=== PATIENT | male | born 1950 | race Caucasian/White ===

== ENCOUNTER 2017-10-23 06:52 | Day surgery (SDC) | payer MEDICARE, OTHER, SELFPAY ==
--- NOTE | 2017-10-23 | PATH_ITS ---
[facility] Accession Number: [id number] . 01 Material submitted: . PART A: GASTRIC PART B: COLON POLYP AT 110CM . 02 Diagnosis: A. Gastric Biopsies: Mild chronic gastritis involving antral mucosa with prominent mucosal erosion and focal atrophy with associated focal intestinal metaplasia. Immunohistochemistry for Helicobacter pending to be reported by addendum. Negative for dysplasia and malignancy. . B. Biopsy Colon Polyp at 110 cm: Tubular adenoma involving two biopsy fragments with associated superficial ulceration. Multiple fragments of vegetable matter. Negative for evidence of malignancy. MRV/10/26/2017 . 02 Electronically signed: . Carlos Hall MD, Pathologist NPI- [id number] . 01 Gross description: . Received are two formalin-filled containers, both labeled with the patient's name: . A. In a container labeled gastric, are multiple less than 0.1 cm to 0.2 cm portions of tissue, which are filtered, wrapped, and entirely submitted in cassette A. B. In a container labeled colon polyp at 110 cm, are multiple fragments of tissue and/or debris which range in size from less than 0.1 cm to 0.3 x 0.3 x 0.2 cm. All fragments are totally submitted in cassette B. ([id number]) /FRR . 02 Pathologist provided ICD-10: K29.70 . 02 CPT . 242409, 336767, S27920 Performed at: 01 [facility] [address] [id number] MD Yeison Bhandari MD Phone: [phone] Performed at: 02 [facility] [id number] [place] [id number] MD Isidro Blanco MD Phone: [phone]
[2017-10-23 07:20] VITALS: BP 150/81; PULSE 71; RESP 22; TEMP 36.7
[2017-10-23] MEDS: SODIUM CHLORIDE 0.9% 1,000 ML 200 ML IV (07:44)
--- NOTE | 2017-10-23 07:52 | PM.PREOP ---
Pre-operative Note Interval Note Pre-op Check: History & Physical Reviewed by Physician and Exam Performed H&P completed within 30 days and has changed as indicated here:: no change ASA Class (for procedural sedation): III
--- NOTE | 2017-10-23 08:01 | SUR.OPER ---
to endo from opd via cart respirations unlabored iv patent positioned per self for procedure
--- NOTE | 2017-10-23 09:07 | PM.OP.ENDO ---
Operative Date/Time/Diagnoses - Date of procedure: 10/23/17 Time of procedure: 09:07 Pre-op diagnosis: Anemia of uncertain cause. Post-op diagnosis: same (Multiple gastric ulcers. One inflammatory appearing polyp in the proximal transverse colon. left-sided diverticulosis.) Procedure & Clinicians Study performed: EGD with cold biopsy. Colonoscopy with hot snare polypectomy. Same procedure as scheduled: Yes Indications: Anemia Surgeon: Denzel Marquez Procedure Notes SCOAP/Timeout: Performed Procedure in detail: The patient had topical anesthetic applied to oropharynx. She was placed in left lateral decubitus position and underwent IV sedation directed by the surgeon consisting of fentanyl and Versed. A bite block was inserted and the scope was advanced through it into the esophagus. The esophagus was unremarkable. GE junction was noted at 41 cm. The stomach insufflated well. There were multiple ulcer lesions seen in the body, antrum and at the proximal stomach. The pyloric channel was [patent]. The duodenum was remarkable for inflammation in the bulb. There were no ulcers. The duodenum was otherwise normal to the 3rd part. The scope was brought back into the stomach and retroflexed. The proximal stomach[contain numerous linear erosions with linear ulcerations. Multiple biopsies were taken in the stomach which included areas of ulcer]. The scope was straightened and brought out through the esophagus again. No lesions were seen. The scope was removed and the patient tolerated the procedure well. The patient was placed in the left lateral decubitus position and underwent IV sedation directed by the surgeon consisting of fentanyl and Versed. Digital exam was[remarkable for a flat area of the prostate. (patient is post radiation treatment of prostate cancer)]. The scope was inserted and advanced through the rectum into the sigmoid, descending, transverse, and ascending colon. Patient had left-sided diverticulosis. No other lesions were seen.. The cecum was reached identified by the ileocecal valve and the appendiceal opening. The ileocecal valve was successfully cannulated. The terminal ileum was normal in appearance. The appendix was noted to fill with fluid an empty periodically. The scope was gradually brought out. Polyps were found at 110 cm in the proximal transverse colon. It appeared to be an inflammatory lesion rather than a neoplastic 1. It was snared and then the bleeding base cauterized. The scope ultimately was retroflexed in the rectum. The appearance was normal in appearance. The scope was removed and the patient tolerated the procedure well Scope withdrawal time: 13 min Sedation minutes: 42 Findings: diverticulosis, gastric ulcer (Multiple including linear ulcerations) and polyp (Proximal transverse colon. Appeared to be inflammatory.) Specimen(s): other (Gastric biopsies and polypectomy specimens) Complications: none Recommendations: Colonscopy in 5 years, Start medication(s) (Proton pump inhibitor(patient presently on H2 [place])) and Other recommendation (EGD in 12 weeks to confirm healing of multiple ulcers.) Plan for aftercare: Follow-up in the office in 1 month. Follow up: months (One) Disposition: PACU
[2017-10-23 09:12] VITALS: BP 136/68; PULSE 54; RESP 16; TEMP 36.4; O2SAT 95
[2017-10-23] MEDS: fentaNYL 250 MCG/5 ML INJ 275 MCG IV (09:13)
[2017-10-23] MEDS: MIDAZOLAM 5 MG/5 ML VIAL IV (09:13)
[2017-10-23] MEDS: TETRACAINE/BENZOCAINE/BUTAMBEN (CETACAINE) BOTTLE 1 SPRAY TOP (09:14)
[2017-10-23 09:18] VITALS: BP 125/66; PULSE 56; RESP 17; TEMP 37; O2SAT 97
[2017-10-23 09:25] VITALS: BP 128/65; PULSE 61; RESP 15; TEMP 36.3; O2SAT 98
== END 2017-10-23 09:43 | disposition home or self-care (01) ==
PROVIDERS: PCP Internal Medicine; Visit Provider Specialist
PROC: 0DJ08ZZ Inspection of Upper Intestinal Tract, Via Natural or Artificial Opening Endoscopic (ICD-10-PCS; CPT 43235; principal; 2017-10-23 07:45)
PROC: 0DJD8ZZ Inspection of Lower Intestinal Tract, Via Natural or Artificial Opening Endoscopic (ICD-10-PCS; CPT 45378; 2017-10-23 07:45)
DX: D64.9 Anemia, unspecified (principal); K25.9 Gastric ulcer, unspecified as acute or chronic, without hemorrhage or perforation; K57.30 Diverticulosis of large intestine without perforation or abscess without bleeding; I25.10 Atherosclerotic heart disease of native coronary artery without angina pectoris; E11.9 Type 2 diabetes mellitus without complications; I10 Essential (primary) hypertension; Z87.891 Personal history of nicotine dependence; Z85.46 Personal history of malignant neoplasm of prostate; Z79.4 Long term (current) use of insulin; D12.3 Benign neoplasm of transverse colon; K29.70 Gastritis, unspecified, without bleeding
CPT/HCPCS: 45385; 43239; 99152; 99153; J0171; J2250; J3010

== ENCOUNTER → 2017-12-07 09:39 | Outpatient (CLI) | payer MEDICARE, OTHER, SELFPAY ==
[2017-12-07 11:06] LABS: Add Manual Diff / Slide Review NO; Basophils Percent Auto 0.7 % (0-2); Eosinophils Percent Auto 3.1 % (2-4); Hematocrit 35.2 % (41-53); Hemoglobin 11.7 g/dL (13.5-17.5); Lymphocytes Percent Auto 19.6 % (25-40); Mean Corpuscular HGB Conc 33.3 % (30-36); Mean Corpuscular Hemoglobin 30.5 PG (26-34); Mean Corpuscular Volume 91.6 fL (80-100); Monocytes Percent Auto 9.6 % (3-14); Neutrophils Absolute Auto 3700 /uL (3000-5900); Platelet Count 107 X10^3/uL (150-400); Red Blood Cell Count 3.85 X10^6/uL (4.5-5.9); Red Cell Distribution Width 16.9 % (11.6-14.8); White Blood Cell Count 5.6 X10^3/uL (4.5-11.0)
[2017-12-07 11:16] LABS: Hemoglobin A1C% w Est Avg Glu 6.9 % (4.0-6.0)
[2017-12-07 11:17] LABS: Alanine Aminotransferase 35 IU/L (21-72); Albumin 3.5 g/dL (3.5-5.0); Albumin Globulin Ratio 1.5 (1.0-2.8); Alkaline Phosphatase 66 U/L (38-126); Aspartate Aminotransferase 31 IU/L (17-59); BUN Creatinine Ratio 23.3 (6-22); Bilirubin Total 0.8 mg/dL (0.2-1.3); Blood Urea Nitrogen 21 mg/dL (9-20); Calcium 9.2 mg/dL (8.4-10.2); Carbon Dioxide 30 mmol/L (22-32); Chloride 100 mmol/L (98-107); Estimated Glomerular Filt Rate > 60.0 mL/min (>60); Globulin 2.4 g/dL (1.7-4.1); Glucose 114 mg/dL (80-110); HEMOLYSIS 23 (0-50); Potassium 4.9 mmol/L (3.4-5.1); Sodium 138 mmol/L (137-145); Total Protein 5.9 g/dL (6.3-8.2)
[2017-12-07 11:50] LABS: Thyroid Stimulating Hormone 2.15 uIU/mL (0.47-4.68)
== END ==
PROVIDERS: PCP Internal Medicine; Visit Provider Internal Medicine
DX: I25.10 Atherosclerotic heart disease of native coronary artery without angina pectoris (principal)
CPT/HCPCS: 36415; 80053; 83036; 84443; 85025; G0103

== ENCOUNTER → 2017-12-22 08:46 | Outpatient (CLI) | payer MEDICARE, OTHER, SELFPAY ==
--- NOTE | 2017-12-22 08:49 | DI.US.S_ITS ---
PROCEDURE: US ABDOMEN COMPLETE INDICATIONS: ALCOHOLISM TECHNIQUE: Real-time scanning was performed of the abdominal and retroperitoneal organs, with image documentation. COMPARISON: [facility], US, ABDOMEN COMPLETE, 01/05/2015, 0:43. [facility], US, ABDOMEN COMPLETE, 05/11/2013, 1:15. FINDINGS: Liver: Liver is normal in size and homogeneous in echotexture. Gallbladder: Surgically absent. Biliary ducts: Intrahepatic bile ducts are non-dilated. Extrahepatic bile duct caliber measures 10.0 mm. Normal is 6-7 mm or less in diameter, or 10 mm or less post-cholecystectomy. Pancreas: Visualized portions of the pancreas are sonographically normal. Spleen: Spleen is normal in size and homogeneous in echotexture. Kidneys: Kidneys are normal in size and echotexture. Right kidney measures 12.3 cm long; left kidney measures 13.7 cm long. No hydronephrosis or nephrolithiasis. No solid masses. Aorta: Visualized aorta is normal in caliber at less than 3 cm. Iliacs: Proximal common iliac arteries are normal in caliber at less than 2.5 cm. IVC: Intrahepatic inferior vena cava is patent. Miscellaneous: No free abdominal fluid. IMPRESSION: Prior cholecystectomy. Normal spleen size, normal hepatic echotexture and size. Varices or ascites are not seen. Dictated by: Charles Sumner M.D. on 12/22/2017 at 10:44 Approved by: Charles Sumner M.D. on 12/22/2017 at 10:45
== END ==
PROVIDERS: PCP Internal Medicine; Visit Provider Internal Medicine Hematology & Oncology
DX: D64.9 Anemia, unspecified (principal); F10.10 Alcohol abuse, uncomplicated; D69.6 Thrombocytopenia, unspecified; Z90.49 Acquired absence of other specified parts of digestive tract
CPT/HCPCS: 76700

== ENCOUNTER 2018-01-13 08:30 | Outpatient (RCR) | payer MEDICARE, OTHER, SELFPAY | END 2018-01-18 14:06 | LOC: CAR 08:30 | PROVIDERS: PCP Internal Medicine; Visit Provider Internal Medicine | DX: Z95.1 Presence of aortocoronary bypass graft (principal) | CPT/HCPCS: 93798 ==

== ENCOUNTER → 2018-01-13 13:32 | Outpatient (CLI) | payer MEDICARE, OTHER, SELFPAY ==
[2018-01-13 14:07] LABS: Add Manual Diff / Slide Review NO; Basophils Percent Auto 0.4 % (0-2); Eosinophils Percent Auto 3.4 % (2-4); Hematocrit 39.5 % (41-53); Hemoglobin 13.4 g/dL (13.5-17.5); Lymphocytes Percent Auto 22.1 % (25-40); Mean Corpuscular Hemoglobin 31.3 PG (26-34); Mean Corpuscular Volume 92.1 fL (80-100); Monocytes Percent Auto 6.6 % (3-14); Neutrophils Absolute Auto 5200 /uL (3000-5900); Neutrophils Percent Auto 67.5 % (50-75); Platelet Count 110 X10^3/uL (150-400); Red Blood Cell Count 4.29 X10^6/uL (4.5-5.9); Red Cell Distribution Width 15.3 % (11.6-14.8); White Blood Cell Count 7.7 X10^3/uL (4.5-11.0)
[2018-01-13 14:24] LABS: Alanine Aminotransferase 43 IU/L (21-72); Albumin 4.1 g/dL (3.5-5.0); Albumin Globulin Ratio 1.7 (1.0-2.8); Alkaline Phosphatase 56 U/L (38-126); Aspartate Aminotransferase 40 IU/L (17-59); BUN Creatinine Ratio 24.5 (6-22); Blood Urea Nitrogen 27 mg/dL (9-20); Calcium 9.8 mg/dL (8.4-10.2); Carbon Dioxide 33 mmol/L (22-32); Chloride 99 mmol/L (98-107); Estimated Glomerular Filt Rate > 60.0 mL/min (>60); Globulin 2.4 g/dL (1.7-4.1); Glucose 169 mg/dL (80-110); HEMOLYSIS 22 (0-50); Lactate Dehydrogenase 680 U/L (313-618); Potassium 4.6 mmol/L (3.4-5.1); Sodium 141 mmol/L (137-145); Total Protein 6.5 g/dL (6.3-8.2)
== END ==
PROVIDERS: PCP Internal Medicine; Visit Provider Internal Medicine Hematology & Oncology
DX: D64.9 Anemia, unspecified (principal); D69.6 Thrombocytopenia, unspecified
CPT/HCPCS: 36415; 80053; 83615; 85025

== ENCOUNTER 2018-01-14 15:30 | Oncology outpatient (ONC) | payer MEDICARE, OTHER, SELFPAY ==
--- NOTE | 2017-12-14 13:45 | ONC.CONS ---
History of Present Illness - Data of Consult Consult date: 12/14/17 Primary Care Provider: Reji Malave MD - Consult Narrative Reason for consult: Anemia and thrombocytopenia Narrative: Grant Lowery is a 67 year old male . He has an extensive long list of medical comorbidities most notable for diabetes, coronary artery disease status post CABG, sleep apnea using CPAP, gout, hyperlipidemia, hypothyroidism, hypertension, prostate cancer status post radiotherapy and acid reflux problems. Patient admitted to drinking alcohol for as long as he can remember. He said he is drinking vodka probably 6-8 cans per day. Patient was referred to Hematology/Oncology for evaluation of newly developed anemia and thrombocytopenia. He said he was not aware of any anemia or thrombocytopenia until after the CABG surgery last March 2017. Clinically he denies any black stool, denies any bright red blood per rectum. Available medical records showed that on February 01 2016 the white cell count was 6.7 hemoglobin 14.0 hematocrit 40.6% platelets 123. Repeat test on 10/14/2017 reviewed blood cell 6.7, hemoglobin 11.8, hematocrit 35.6%, MCV 87.2, platelets 138. Patient therefore underwent GI workup including colonoscopy and upper endoscopy. Iron studies was also normal. No apparent etiology for anemia was identified. And on December 07, 2017, repeat test showed that the white cell count was 5.6, hemoglobin level 11.7 hematocrit 35.2, MCV 91.6 and platelets 107. And iron studies were normal according to the medical records. Patient therefore was referred to here for further evaluation. Patient reported that he is slightly more tired than before. He denies any shortness of breath or chest pain. He denies any abdominal pain or fullness. The denies bright red blood per rectum or dark stool. CC: Tracey Gaines MD Home Medications and Allergies Home Medications Medication Instructions Recorded Confirmed Type Atorvastatin Calcium (Lipitor) 80 mg PO Q DAY #0 08/31/09 10/21/17 History LISINOPRIL (Zestril / Prinivil) 20 mg PO BID #0 08/31/09 10/21/17 History Metformin Hydrochloride 1,000 mg PO BID #0 08/31/09 10/21/17 History (Glucophage) carvedilol [Coreg] 25 mg PO BID #0 10/19/11 10/21/17 History aspirin 81 mg tablet,delayed 162 mg PO DAILY 10/21/17 10/21/17 History release cholecalciferol (vitamin D3) 1,000 1,000 unit PO DAILY 10/21/17 10/21/17 History unit capsule ezetimibe 10 mg-simvastatin 10 mg 1 tab PO DAILY 10/21/17 10/21/17 History tablet furosemide 20 mg tablet 20 mg PO DAILY 10/21/17 10/21/17 History insulin aspart U-100 100 unit/mL 10 unit SUBCUT ONCE ml 10/21/17 10/21/17 History subcutaneous pen insulin glargine (U-100) 100 35 unit SUBCUT BID ml 10/21/17 10/21/17 History unit/mL (3 mL) subcutaneous pen levothyroxine 112 mcg capsule 112 mcg PO DAILY 10/21/17 10/21/17 History pioglitazone 30 mg tablet 30 mg PO DAILY 10/21/17 10/21/17 History potassium chloride ER 10 mEq 10 meq PO DAILY 10/21/17 10/21/17 History capsule,extended release esomeprazole magnesium 20 mg PO DAILY #60 cap 10/23/17 Rx Allergies Allergy/AdvReac Type Severity Reaction Status Date / Time acetaminophen Allergy Severe ANAPHYLAXIS Verified 10/21/17 09:26 codeine Allergy Severe ANAPHYLAXIS Verified 10/21/17 09:26 silicone Allergy Verified 10/21/17 10:31 Medical History - Medical, Surgical, Family History Medical History: Medical History (Last Updated 12/14/17 @ 14:01 by Tracey Gaines MD) Alcohol abuse (Chronic) Gout (Chronic) Sleep apnea (Chronic) Hyperlipidemia (Chronic) Coronary artery disease (Chronic) Diabetes (Chronic) Prostate cancer (Chronic) Hypertension (Chronic) Blindness of left eye Surgical History: Surgical History (Last Updated 12/14/17 @ 14:01 by Tracey Gaines MD) History of coronary artery bypass graft x 2 History of laparoscopic cholecystectomy Hx of heart artery stent Hx of umbilical hernia repair Status post rotator cuff surgery Family History: Family History (Last Reviewed 10/21/17 @ 13:01 by Denzel Marquez MD) Father Hypertension Heart disease Mother Stroke Cancer - Social History Smoking Status: Former smoker (quit ) Alcohol Intake: current (Vodka 6-8 oz per day for decades.) Alcohol Intake Frequency: 0-2 drinks per day Current Occupational Status: employed Exam Vital signs: Temperature 98.5?, heart rate 49, respiratory rate 15, blood pressure 184/63, oxygenation 99%, weight 282.4 lb, height 178.5 cm. - Constitutional positive no acute distress, positive obese, positive cooperative - Routine HEENT Exam Head: Present: normocephalic, atraumatic Eye: Present: EOMI, PERRL, normal accommodation. Absent: conjunctival icterus ENT: Present: mucous membranes moist - Routine Neck Exam Present: supple, full ROM, trachea midline. Absent: JVD, carotid bruit, lymphadenopathy, thyromegaly - Routine Chest/Breast/Axilla Exam Axillae: Absent: lymphadenopathy, mass - Routine Respiratory Exam Present: Clear to auscultation bilaterally. Absent: wheezes - Routine Cardiovascular Exam Present: RRR, S1, S2. Absent: murmur, gallop, rubs - Routine Abdominal Exam Present: soft, normoactive bowel sounds. Absent: tenderness, distended, mass Palpation/Percussion: Absent: hepatomegaly, splenomegaly - Routine Extremities Exam Present: edema (1+ bilateral lower extremities). Absent: cyanosis, clubbing - Routine Back/Spine Exam Back/Spine: Present: full ROM. Absent: CVA tenderness - Routine Skin Exam Present: intact. Absent: cyanosis, erythema, petechiae - Routine Neurological Exam Present: alert, oriented X3, CN II-XII intact, normal reflexes. Absent: sensory deficit, motor deficit - Routine Psychiatric Exam Present: normal affect, normal thought process, cooperative, good insight, good judgment Results - Imaging Additional studies: Procedures Administration of iislnhmzet-xwxgmct-hudqkgyvp, combined (10/19/11) CAUTERY TO STOP EPISTAX (08/31/09) Injection or infusion of other therapeutic or prophylactic substance (05/09/13) POST NASAL PAC FOR EPIST (08/27/09) Assessment and Plan (1) Thrombocytopenia See the following anemia section discussion. (2) Anemia I reviewed the laboratory results available to me from last several months. I explained to the patient that patient has a chronic mild anemia. The most recent hemoglobin level was 11.7. Clinically there is no associated signs or symptoms. M appetite is relatively stable, and mild,. It could be caused by the multiple medical comorbidities as well as the multiple medications. Patient has already had endoscopy workup as well as stool guaiac test all came back negative. Based on the above I think the anemia most likely is anemia of chronic disease. At present I do not think there is any special tests that would be needed to further evaluate. However I talked with the patient that the more worrisome actually is the the progressively worsening thrombocytopenia. The most recent thrombocytopenia was 107. [place] head there is no evidence of petechiae, or active bleeding. The etiology of the thrombocytopenia at present is not completely clear yet. However patient apparently has a long history of alcohol use, that is a vodka 6-8 oz per day. I explained to the patient that prolonged alcohol use concert with damage to the liver with resulting increased spleen. This could be the inciting factor for the chronic anemia as well as the chronic thrombocytopenia. I talked with him that I will obtain an ultrasound study to evaluate the liver as well as the spleen. And I will have the patient come back in about a month and I will repeat the CBC, CMP and LDH level before the visit. 12/14/17 14:10 (3) Alcohol abuse For the alcohol problems: I encouraged the patient to consider gradually taper down and eventually completely stopped. Patient apparently is motivated and agrees with the recommendations. The talked with the patient that if continued drinking, patient will eventually develop alcoholic liver damage that is cirrhosis with enlarged spleen. I encouraged patient also continue follow-up with primary care provider.
[2017-12-14 15:08] VITALS: BP 184/63; PULSE 49; RESP 15; TEMP 36.9; O2SAT 99
[2018-01-14 16:34] VITALS: BP 169/67; PULSE 65; RESP 18; TEMP 36.2; O2SAT 97
--- NOTE | 2018-01-14 17:25 | ONC.PN ---
PN -Subjective Interval history: Chief Complaints: 67 year old with anemia and thrombocytopenia Interim Events: Patient presents here today for scheduled follow-up visit. Patient underwent ultrasound study of the liver and spleen on 12/22/2017. Remarkably normal spleen size, normal hepatic echotexture and size are noted. Varieces or ascites are note seen. He also underwent repeat CBC on 01/13/2018: WBC 7.7, HGB 13.4, HCT 39.5, PLT 110, that are slightly improved. Clinically there is no new signs or symptoms. History of Present Illness: Grant Lowery is a 67 year old male with a long list of medical comorbidities significant diabetes, coronary artery disease status post CABG, sleep apnea using CPAP, gout, hyperlipidemia, hypothyroidism, hypertension, prostate cancer status post radiotherapy and acid reflux problems. Patient admitted to drinking alcohol for as long as he can remember. He is drinking vodka probably 6-8 cans per day. Patient was referred to Hematology/Oncology for evaluation of newly developed anemia and thrombocytopenia. He said he was not aware of any anemia or thrombocytopenia until after the CABG surgery last March 2017. Clinically he denies any black stool, denies any bright red blood per rectum. Available medical records showed that on February 01 2016, the white cell count was 6.7 hemoglobin 14.0 hematocrit 40.6% platelets 123. Repeat test on 10/14/2017 reviewed blood cell 6.7, hemoglobin 11.8, hematocrit 35.6%, MCV 87.2, platelets 138. Patient therefore underwent GI workup including colonoscopy and upper endoscopy. Iron studies was also normal. No apparent etiology for anemia was identified. On December 07, 2017, repeat test showed that the white cell count was 5.6, hemoglobin level 11.7 hematocrit 35.2, MCV 91.6 and platelets 107. And iron studies again were normal according to the medical records. Patient therefore was referred to here for further evaluation. Patient reported that he is slightly more tired than before. He denies any shortness of breath or chest pain. He denies any abdominal pain or fullness. The denies bright red blood per rectum or dark stool. - Patient Self-Reported Symptoms SR eye issues: Vision changes SR ears, nose, mouth, throat issues: Hoarseness SR Gastrointestinal issues: Heartburn SR Genitourinary issues: Frequent urination, Sexual difficulties SR Neuro issues: Tremors or shaking - Additional ROS All systems PM: reviewed and no additional remarkable complaints except as stated Home Medications and Allergies Home Medications Medication Instructions Recorded Confirmed Type Atorvastatin Calcium (Lipitor) 80 mg PO Q DAY #0 08/31/09 12/14/17 History LISINOPRIL (Zestril / Prinivil) 30 mg PO DAILY #0 08/31/09 12/14/17 History Metformin Hydrochloride 1,000 mg PO BID #0 08/31/09 12/14/17 History (Glucophage) carvedilol [Coreg] 25 mg PO BID #0 10/19/11 12/14/17 History aspirin 81 mg tablet,delayed 162 mg PO DAILY 10/21/17 12/14/17 History release cholecalciferol (vitamin D3) 1,000 1,000 unit PO DAILY 10/21/17 12/14/17 History unit capsule ezetimibe 10 mg-simvastatin 10 mg 1 tab PO DAILY 10/21/17 12/14/17 History tablet insulin aspart U-100 100 unit/mL 10 unit SUBCUT ONCE ml 10/21/17 12/14/17 History subcutaneous pen insulin glargine (U-100) 100 35 unit SUBCUT BID ml 10/21/17 12/14/17 History unit/mL (3 mL) subcutaneous pen levothyroxine 112 mcg capsule 112 mcg PO DAILY 10/21/17 12/14/17 History pioglitazone 30 mg tablet 30 mg PO DAILY 10/21/17 10/21/17 History One Touch Ultra Test Strips 12/14/17 12/14/17 History amiodarone 200 mg PO DAILY 12/14/17 12/14/17 History colchicine 0.6 mg PO DAILY PRN 12/14/17 12/14/17 History ezetimibe [Zetia] 10 mg PO DAILY 12/14/17 12/14/17 History hydrochlorothiazide 25 mg PO DAILY 12/14/17 12/14/17 History ketoconazole 1 applic TOPICAL BID 12/14/17 12/14/17 History pioglitazone [Actos] 30 mg PO DAILY 12/14/17 12/14/17 History insulin glargine [Basaglar KwikPen 35 units/day 01/14/18 History U-100 Insulin] ranitidine HCl 25 mg PO DAILY 01/14/18 01/14/18 History Allergies Allergy/AdvReac Type Severity Reaction Status Date / Time acetaminophen Allergy Severe ANAPHYLAXIS Verified 10/21/17 09:26 codeine Allergy Severe ANAPHYLAXIS Verified 10/21/17 09:26 silicone Allergy Verified 10/21/17 10:31 Exam Vital signs: Last Vital Signs Temp 97.2 F L 01/14/18 16:34 Pulse 65 01/14/18 16:34 Resp 18 01/14/18 16:34 BP 169/67 H 01/14/18 16:34 Pulse Ox 97 01/14/18 16:34 - Constitutional positive no acute distress, positive average body habitus, positive cooperative - Routine HEENT Exam Head: Present: normocephalic, atraumatic Eye: Present: EOMI, PERRL, normal accommodation. Absent: conjunctival icterus ENT: Present: mucous membranes moist - Routine Neck Exam Present: supple, tenderness, swelling, trachea midline. Absent: lymphadenopathy, thyromegaly - Routine Respiratory Exam Present: Clear to auscultation bilaterally. Absent: accessory muscle use, rales, respiratory distress, rhonchi, stridor, wheezes, crackles - Routine Cardiovascular Exam Present: RRR, S1, S2. Absent: murmur, gallop, rubs - Routine Abdominal Exam Present: soft, normoactive bowel sounds. Absent: tenderness, distended, organomegaly, mass, hernia - Routine Extremities Exam Absent: edema, joint swelling - Routine Neurological Exam Present: alert, oriented X3, CN II-XII intact, normal reflexes. Absent: sensory deficit, motor deficit - Routine Psychiatric Exam Present: normal affect, normal thought process, cooperative, good insight, good judgment Results - Labs See HPI, reviewed. - Imaging Additional studies: Procedures Administration of newipjxhjl-rwjlrrr-bbbahmlxz, combined (10/19/11) CAUTERY TO STOP EPISTAX (08/31/09) Injection or infusion of other therapeutic or prophylactic substance (05/09/13) POST NASAL PAC FOR EPIST (08/27/09) Assessment and Plan (1) Thrombocytopenia Current visit: Yes Status: Chronic (2) Anemia Current visit: Yes Status: Chronic (3) Alcohol abuse Current visit: Yes Status: Chronic - Time Spent with Patient I talked with the patient that in my opinion that the mild anemia and mild thrombocytopenia probably are associated with chronic disease. Since it is stable and may be improving, I would recommend that we continue current active surveillance. I explained to the patient that when our body is under stress either with chronic or acute illness, the bone marrows function can be temporarily suppressed. However, I cannot exclude that anemia and thrombocytopenia are due to vodka use. Alcohol by itself has a mild bone marrow suppressive effect. Patient voiced understanding. Patient previously has been followed by Dr. Wiggins for prostate cancer at [facility] [place]. He would like to consolidate his future follow up with Dr. Wiggins at [place]. I completed agree and support.
--- NOTE | 2018-01-14 17:28 | P.PNONC_ITS ---
PN -Subjective Interval history: Chief Complaints: 67 year old with anemia and thrombocytopenia Interim Events: Patient presents here today for scheduled follow-up visit. Patient underwent ultrasound study of the liver and spleen on 12/22/2017. Remarkably normal spleen size, normal hepatic echotexture and size are noted. Varieces or ascites are note seen. He also underwent repeat CBC on 01/13/2018: WBC 7.7, HGB 13.4, HCT 39.5, PLT 110, that are slightly improved. Clinically there is no new signs or symptoms. History of Present Illness: Grant Lowery is a 67 year old male with a long list of medical comorbidities significant diabetes, coronary artery disease status post CABG, sleep apnea using CPAP, gout, hyperlipidemia, hypothyroidism, hypertension, prostate cancer status post radiotherapy and acid reflux problems. Patient admitted to drinking alcohol for as long as he can remember. He is drinking vodka probably 6-8 cans per day. Patient was referred to Hematology/Oncology for evaluation of newly developed anemia and thrombocytopenia. He said he was not aware of any anemia or thrombocytopenia until after the CABG surgery last March 2017. Clinically he denies any black stool, denies any bright red blood per rectum. Available medical records showed that on February 01 2016, the white cell count was 6.7 hemoglobin 14.0 hematocrit 40.6% platelets 123. Repeat test on 10/14/2017 reviewed blood cell 6.7, hemoglobin 11.8, hematocrit 35.6%, MCV 87.2, platelets 138. Patient therefore underwent GI workup including colonoscopy and upper endoscopy. Iron studies was also normal. No apparent etiology for anemia was identified. On December 07, 2017, repeat test showed that the white cell count was 5.6, hemoglobin level 11.7 hematocrit 35.2 , MCV 91.6 and platelets 107. And iron studies again were normal according to the medical records. Patient therefore was referred to here for further evaluation. Patient reported that he is slightly more tired than before. He denies any shortness of breath or chest pain. He denies any abdominal pain or fullness. The denies bright red blood per rectum or dark stool. - Patient Self-Reported Symptoms SR eye issues: Vision changes SR ears, nose, mouth, throat issues: Hoarseness SR Gastrointestinal issues: Heartburn SR Genitourinary issues: Frequent urination, Sexual difficulties SR Neuro issues: Tremors or shaking - Additional ROS All systems PM: reviewed and no additional remarkable complaints except as stated Home Medications and Allergies Home Medications Medication Instructions Recorded Confirmed Type Atorvastatin Calcium (Lipitor) 80 mg PO Q DAY #0 08/31/09 12/14/17 History LISINOPRIL (Zestril / Prinivil) 30 mg PO DAILY #0 08/31/09 12/14/17 History Metformin Hydrochloride 1,000 mg PO BID #0 08/31/09 12/14/17 History (Glucophage) carvedilol [Coreg] 25 mg PO BID #0 10/19/11 12/14/17 History aspirin 81 mg tablet,delayed 162 mg PO DAILY 10/21/17 12/14/17 History release cholecalciferol (vitamin D3) 1,000 1,000 unit PO DAILY 10/21/17 12/14/17 History unit capsule ezetimibe 10 mg-simvastatin 10 mg 1 tab PO DAILY 10/21/17 12/14/17 History tablet insulin aspart U-100 100 unit/mL 10 unit SUBCUT ONCE ml 10/21/17 12/14/17 History subcutaneous pen insulin glargine (U-100) 100 35 unit SUBCUT BID ml 10/21/17 12/14/17 History unit/mL (3 mL) subcutaneous pen levothyroxine 112 mcg capsule 112 mcg PO DAILY 10/21/17 12/14/17 History pioglitazone 30 mg tablet 30 mg PO DAILY 10/21/17 10/21/17 History One Touch Ultra Test Strips 12/14/17 12/14/17 History amiodarone 200 mg PO DAILY 12/14/17 12/14/17 History colchicine 0.6 mg PO DAILY PRN 12/14/17 12/14/17 History ezetimibe [Zetia] 10 mg PO DAILY 12/14/17 12/14/17 History hydrochlorothiazide 25 mg PO DAILY 12/14/17 12/14/17 History ketoconazole 1 applic TOPICAL BID 12/14/17 12/14/17 History pioglitazone [Actos] 30 mg PO DAILY 12/14/17 12/14/17 History insulin glargine [Basaglar KwikPen 35 units/day 01/14/18 History U-100 Insulin] ranitidine HCl 25 mg PO DAILY 01/14/18 01/14/18 History Allergies Allergy/AdvReac Type Severity Reaction Status Date / Time acetaminophen Allergy Severe ANAPHYLAXIS Verified 10/21/17 09:26 codeine Allergy Severe ANAPHYLAXIS Verified 10/21/17 09:26 silicone Allergy Verified 10/21/17 10:31 Exam Vital signs: Last Vital Signs Temp 97.2 F L 01/14/18 16:34 Pulse 65 01/14/18 16:34 Resp 18 01/14/18 16:34 BP 169/67 H 01/14/18 16:34 Pulse Ox 97 01/14/18 16:34 - Constitutional positive no acute distress, positive average body habitus, positive cooperative - Routine HEENT Exam Head: Present: normocephalic, atraumatic Eye: Present: EOMI, PERRL, normal accommodation. Absent: conjunctival icterus ENT: Present: mucous membranes moist - Routine Neck Exam Present: supple, tenderness, swelling, trachea midline. Absent: lymphadenopathy , thyromegaly - Routine Respiratory Exam Present: Clear to auscultation bilaterally. Absent: accessory muscle use, rales , respiratory distress, rhonchi, stridor, wheezes, crackles - Routine Cardiovascular Exam Present: RRR, S1, S2. Absent: murmur, gallop, rubs - Routine Abdominal Exam Present: soft, normoactive bowel sounds. Absent: tenderness, distended, organomegaly, mass, hernia - Routine Extremities Exam Absent: edema, joint swelling - Routine Neurological Exam Present: alert, oriented X3, CN II-XII intact, normal reflexes. Absent: sensory deficit, motor deficit - Routine Psychiatric Exam Present: normal affect, normal thought process, cooperative, good insight, good judgment Results - Labs See HPI, reviewed. - Imaging Additional studies: Procedures Administration of [id number], combined (10/19/11) CAUTERY TO STOP EPISTAX (08/31/09) Injection or infusion of other therapeutic or prophylactic substance (05/09/13) POST NASAL PAC FOR EPIST (08/27/09) Assessment and Plan (1) Thrombocytopenia Current visit: Yes Status: Chronic (2) Anemia Current visit: Yes Status: Chronic (3) Alcohol abuse Current visit: Yes Status: Chronic - Time Spent with Patient I talked with the patient that in my opinion that the mild anemia and mild thrombocytopenia probably are associated with chronic disease. Since it is stable and may be improving, I would recommend that we continue current active surveillance. I explained to the patient that when our body is under stress either with chronic or acute illness, the bone marrows function can be temporarily suppressed. However, I cannot exclude that anemia and thrombocytopenia are due to vodka use. Alcohol by itself has a mild bone marrow suppressive effect. Patient voiced understanding. Patient previously has been followed by Dr. Wiggins for prostate cancer at [facility]. He would like to consolidate his future follow up with Dr. Wiggins at [place]. I completed agree and support.
== END 2018-01-25 14:11 ==
PROVIDERS: PCP Internal Medicine; Visit Provider Internal Medicine Hematology & Oncology
DX: D69.6 Thrombocytopenia, unspecified (principal)
CPT/HCPCS: 99204; 99214

== ENCOUNTER → 2018-03-09 17:00 | Outpatient (CLI) | payer MEDICARE, OTHER, SELFPAY ==
[2018-03-09 17:33] LABS: Add Manual Diff / Slide Review NO; Basophils Percent Auto 0.5 % (0-2); Eosinophils Percent Auto 3.9 % (2-4); Hematocrit 41.3 % (41-53); Hemoglobin 13.9 g/dL (13.5-17.5); Lymphocytes Percent Auto 22.3 % (25-40); Mean Corpuscular HGB Conc 33.6 % (30-36); Mean Corpuscular Hemoglobin 31.4 PG (26-34); Mean Corpuscular Volume 93.5 fL (80-100); Monocytes Percent Auto 7.8 % (3-14); Neutrophils Absolute Auto 4300 /uL (3000-5900); Neutrophils Percent Auto 65.5 % (50-75); Platelet Count 111 X10^3/uL (150-400); Red Blood Cell Count 4.42 X10^6/uL (4.5-5.9); Red Cell Distribution Width 14.8 % (11.6-14.8); White Blood Cell Count 6.5 X10^3/uL (4.5-11.0)
[2018-03-09 17:55] LABS: Hemoglobin A1C% w Est Avg Glu 7.3 % (4.0-6.0)
== END ==
PROVIDERS: PCP Internal Medicine; Visit Provider Internal Medicine
DX: I10 Essential (primary) hypertension (principal); E11.9 Type 2 diabetes mellitus without complications
CPT/HCPCS: 36415; 83036; 85025

== ENCOUNTER 2018-04-12 06:47 | Emergency (ER) | payer MEDICARE, OTHER, SELFPAY ==
[2018-04-12 07:04] VITALS: BP 172/64; PULSE 67; RESP 32; TEMP 36.4; O2SAT 96; BMI 395.9
--- NOTE | 2018-04-12 07:19 | DI.RAD.S_ITS ---
PROCEDURE: XR CHEST 1V INDICATIONS: short of breath TECHNIQUE: One view of the chest was acquired. COMPARISON: [facility], , CHEST 1 VIEW, 05/10/2013, 23:28. FINDINGS: Surgical changes and devices: Sternotomy wires and CABG clips. Lungs and pleura: No pleural effusions or pneumothorax. There are increased diffuse bilateral widespread hazy ground glass and ill-defined patchy opacities. Suggestion of early Fabrizio B lines in the lung bases. Patchy retrocardiac opacity is also present Mediastinum: Mediastinal contours appear normal. Heart size is enlarged. Bones and chest wall: No suspicious bony lesions. Overlying soft tissues appear unremarkable. IMPRESSION: Widespread ill-defined and patchy groundglass opacities suggestive of pulmonary edema, although recommend clinical correlation given the absence of any recent comparison studies. If there is persistent clinical diagnostic uncertainty, continued surveillance with short interval chest radiographs after treatment is recommended. Cardiomegaly Dictated by: Derrell Benson M.D. on 04/12/2018 at 7:52 Approved by: Derrell Benson M.D. on 04/12/2018 at 7:56
--- NOTE | 2018-04-12 07:35 | ED_ITS ---
HPI - SOB/Dyspnea General Chief Complaint: Shortness of Breath/Dyspnea Stated Complaint: cant catch breath, chest pain last two weeks Time Seen by Provider: 04/12/18 06:59 Source: patient Mode of arrival: ambulatory Limitations: no limitations History of Present Illness Patient is a 67-year-old male with known coronary artery disease history of stents and bypass presenting with increasing shortness of breath. He said he was worried about his kidneys so he stop taking Lasix a couple months ago. since then he has had a gradual increase in shortness of breath. This morning at 4:30 a.m. he could no longer lay flat needed to sit up. He still feels like he can't get a deep breath. He denies any fever or cough. He does he has not noticed orthopnea before. He does feel like his abdomen is little distended and tight. His legs are always edematous he does not feel like there any bigger than normal. Is difficulty walking long distances at baseline. MD Complaint: shortness of breath Severity: mild Relieving factors: rest Exacerbating factors: lying flat Related Data Home Medications Medication Instructions Recorded Confirmed carvedilol [Coreg] 25 mg PO BID #0 10/19/11 04/12/18 aspirin 81 mg tablet,delayed 162 mg PO DAILY 10/21/17 04/12/18 release cholecalciferol (vitamin D3) 1,000 1,000 unit PO QPM 10/21/17 04/12/18 unit capsule One Touch Ultra Test Strips 12/14/17 04/12/18 amiodarone 200 mg PO DAILY 12/14/17 04/12/18 colchicine 0.6 mg PO DAILY PRN 12/14/17 04/12/18 ezetimibe [Zetia] 10 mg PO QPM 12/14/17 04/12/18 ketoconazole 1 applic TOPICAL BID 12/14/17 04/12/18 pioglitazone [Actos] 30 mg PO QPM 12/14/17 04/12/18 insulin glargine [Basaglar KwikPen 35 units SUBCUT BID 01/14/18 04/12/18 U-100 Insulin] atorvastatin 80 mg PO BEDTIME 04/12/18 04/12/18 famotidine [Pepcid AC] 10 mg PO DAILY PRN 04/12/18 04/12/18 furosemide 20 mg PO DAILY PRN 04/12/18 04/12/18 insulin aspart U-100 [Novolog See Label Instructions .ROUTE 04/12/18 04/12/18 Flexpen U-100 Insulin] .COMPLEX levothyroxine 112 mcg PO DAILY 04/12/18 04/12/18 lisinopril 30 mg PO DAILY 04/12/18 04/12/18 metformin 1,000 mg PO BID 04/12/18 04/12/18 potassium chloride 20 meq PO DAILY 04/12/18 04/12/18 Previous Rx's Medication Instructions Recorded lansoprazole 15 mg capsule,delayed 15 mg PO BID #30 cap 03/02/18 release Allergies Allergy/AdvReac Type Severity Reaction Status Date / Time acetaminophen Allergy Severe ANAPHYLAXIS Verified 10/21/17 09:26 codeine Allergy Severe ANAPHYLAXIS Verified 10/21/17 09:26 silicone Allergy Verified 10/21/17 10:31 Review of Systems Review of Systems All systems reviewed & are unremarkable except as noted in HPI and below Constitutional Denies chills, Denies fever(s), Denies lethargy and Denies weakness Cardiovascular Denies chest pain, Denies syncope, Reports pedal edema, Reports edema, Denies lightheadedness, Reports dyspnea and Reports dyspnea on exertion Respiratory Reports as per HPI, Denies cough, Reports dyspnea, Reports dyspnea on exertion and Denies stridor Gastrointestinal Gastrointestinal: Denies abdominal pain, Denies change in bowel habits, Denies diarrhea, Denies nausea and Denies vomiting Genitourinary Denies hematuria, Denies flank pain, Denies urinary incontinence and Denies urinary urgency Musculoskeletal Denies back pain, Denies muscle weakness, Denies numbness and Denies tingling Integumentary/Breasts Denies pruritus, Denies erythema, Denies rash and Denies wounds Neurologic Denies syncope, Denies numbness, Denies tingling and Denies weakness COUNTS INCLUDE 234 BEDS AT THE [facility] Medical History Alcohol abuse (Chronic) Gout (Chronic) Sleep apnea (Chronic) Hyperlipidemia (Chronic) Coronary artery disease (Chronic) Diabetes (Chronic) Prostate cancer (Chronic) Hypertension (Chronic) Blindness of left eye (Chronic) Family History Father Hypertension Heart disease Mother Stroke Cancer Social History marital status: household members: spouse lives independently: Yes caregiver/support person: No occupational status: employed 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 ) substance use type: does not use Exam Initial Vital Signs Initial Vital Signs: Vital Signs Temperature 97.5 F L 04/12/18 07:04 Pulse Rate 67 04/12/18 07:04 Respiratory Rate 32 H 04/12/18 07:04 Blood Pressure 172/64 H 04/12/18 07:04 Pulse Oximetry 96 04/12/18 07:04 Const General: cooperative Nutritional Appearance: overweight Orientation: alert, awake and oriented x3 Neck Neck: normal visual inspection, full ROM and No JVD Chest Chest: normal inspection of the chest and normal palpation of entire chest wall Resp Effort & Inspection: normal respiratory effort, able to speak in complete sentences (He does get winded while speaking but is able to complete sentences) and tachypneic Auscultation: clear to auscultation bilaterally, no rales, no rhonchi and no wheezes Cardio Rate: regular rate Rhythm: regular rhythm Heart Sounds: S1 normal and S2 normal GI Palpation: soft, firm (Skin is firm), No tender and No ascites Auscultation: normal bowel sounds Skin General: no rashes or lesions noted, No jaundice and No petechiae Neuro General: alert, oriented x3, gait normal and no focal motor deficits Speech: speech normal Extrem General: normal to inspection Right lower extremity: edema Details: 2+ Left lower extremity: edema Details: 2+ Course Orders Ordered: ED Orders 04/12/18 07:18 Consult to Respiratory Therapy Evaluate & Treat 04/12/18 07:19 XR chest 1V Stat 04/12/18 07:36 B Type Natriuretic Peptide Stat Complete Blood Count AUTO DIFF Stat Comprehensive Metabolic Panel Stat Lactate (Lactic Acid) Stat Magnesium Stat Partial Thromboplastin Time Stat Prothrombin Time INR Stat Troponin & CK Cardiac Panel Stat 04/12/18 08:44 EKG-12 Lead Stat 04/12/18 09:30 Troponin I Stat Discontinued Medications Furosemide (Lasix) 40 mg IV NOW ONE Stop: 04/12/18 08:17 Last Admin: 04/12/18 08:33 Dose: 40 mg Vital Signs - 8 hr 04/12/18 07:04 04/12/18 08:05 04/12/18 09:11 Temperature 97.5 F L Pulse Rate 67 53 L 56 L Respiratory Rate 32 H 22 28 H Blood Pressure 172/64 H Blood Pressure [Left Arm] 177/58 H Blood Pressure [Right Arm] 166/68 H Pulse Oximetry 96 95 96 MDM - SOB/Dyspnea Lab Data Attestation: I reviewed the patient's lab results. Result diagrams: 04/12/18 07:36 04/12/18 07:36 Lab Results 04/12/18 04/12/18 04/12/18 Range/Units 07:36 07:36 07:36 WBC 6.8 (4.5-11.0) X10^3/uL RBC 3.94 L (4.5-5.9) X10^6/uL Hgb 12.8 L (13.5-17.5) g/dL Hct 36.4 L (41-53) % MCV 92.4 (80-100) fL MCH 32.6 (26-34) PG MCHC 35.2 (30-36) % RDW 14.7 (11.6-14.8) % Plt Count 108 L (150-400) X10^3/uL Neut % (Auto) 71.0 (50-75) % Lymph % (Auto) 16.4 L (25-40) % Levy % (Auto) 8.5 (3-14) % Eos % (Auto) 3.8 (2-4) % Baso % (Auto) 0.3 (0-2) % Neut # (Auto) 4800 (6850-5067) /uL PT 17.1 H (10.1-12.7) SECONDS INR 1.5 H (0.9-1.3) APTT 34 (26.4-36.2) SECONDS Sodium 142 (137-145) mmol/L Potassium 4.0 (3.4-5.1) mmol/L Chloride 103 (98-107) mmol/L Carbon Dioxide 28 (22-32) mmol/L BUN 18 (9-20) mg/dL Creatinine 0.80 (0.66-1.25) mg/dL Estimated GFR > 60.0 (>60) mL/min BUN/Creatinine Ratio 22.5 H (6-22) Glucose 75 L (80-110) mg/dL Lactate (0.7-2.1) mmol/L Calcium 9.0 (8.4-10.2) mg/dL Magnesium 1.6 (1.6-2.3) mg/dL Total Bilirubin 0.9 (0.2-1.3) mg/dL AST 29 (17-59) IU/L ALT 42 (21-72) IU/L Alkaline Phosphatase 102 (38-126) U/L Total Creatine Kinase 183 H (55-170) U/L CK-MB (CK-2) 3.45 H (<2.37) ng/mL CK-MB (CK-2) Rel Index 1.9 (1.5-5.0) % Troponin I 0.029 (0.01-0.034) ng/mL B-Natriuretic Peptide 589.0 H (<100) Total Protein 6.3 (6.3-8.2) g/dL Albumin 3.8 (3.5-5.0) g/dL Globulin 2.5 (1.7-4.1) g/dL Albumin/Globulin Ratio 1.5 (1.0-2.8) 18 04/12/18 Range/Units 07:36 09:30 WBC (4.5-11.0) X10^3/uL RBC (4.5-5.9) X10^6/uL Hgb (13.5-17.5) g/dL Hct (41-53) % MCV (80-100) fL MCH (26-34) PG MCHC (30-36) % RDW (11.6-14.8) % Plt Count (150-400) X10^3/uL Neut % (Auto) (50-75) % Lymph % (Auto) (25-40) % Levy % (Auto) (3-14) % Eos % (Auto) (2-4) % Baso % (Auto) (0-2) % Neut # (Auto) (4218-3769) /uL PT (10.1-12.7) SECONDS INR (0.9-1.3) APTT (26.4-36.2) SECONDS Sodium (137-145) mmol/L Potassium (3.4-5.1) mmol/L Chloride (98-107) mmol/L Carbon Dioxide (22-32) mmol/L BUN (9-20) mg/dL Creatinine (0.66-1.25) mg/dL Estimated GFR (>60) mL/min BUN/Creatinine Ratio (6-22) Glucose (80-110) mg/dL Lactate 1.0 (0.7-2.1) mmol/L Calcium (8.4-10.2) mg/dL Magnesium (1.6-2.3) mg/dL Total Bilirubin (0.2-1.3) mg/dL AST (17-59) IU/L ALT (21-72) IU/L Alkaline Phosphatase (38-126) U/L Total Creatine Kinase (55-170) U/L CK-MB (CK-2) (<2.37) ng/mL CK-MB (CK-2) Rel Index (1.5-5.0) % Troponin I 0.033 (0.01-0.034) ng/mL B-Natriuretic Peptide (<100) Total Protein (6.3-8.2) g/dL Albumin (3.5-5.0) g/dL Globulin (1.7-4.1) g/dL Albumin/Globulin Ratio (1.0-2.8) Point of Care Testing Glucose POC 85 Urine Dip Bedside Urine Glucose Negative Bedside Urine Bilirubin - Negative Bedside Urine Ketone - Negative Urine Specific [place] 1.015 Bedside Urine Occult Blood - Negative Bedside Urine pH 7.5 Bedside Urine Protein +/- 15 Bedside Urine Urobilinogen - Negative Bedside Urine Nitrite - Negative Bedside Urine Leukocytes - Negative Esterase Imaging Data Chest x-ray: Attestation: I personally reviewed and interpreted this imaging study as follows: My impression: Patchy infiltrate, pulmonary edema Radiologist's impression: PROCEDURE: XR CHEST 1V INDICATIONS: short of breath TECHNIQUE: One view of the chest was acquired. COMPARISON: [facility], , CHEST 1 VIEW, 05/10/2013, 23:28. FINDINGS: Surgical changes and devices: Sternotomy wires and CABG clips. Lungs and pleura: No pleural effusions or pneumothorax. There are increased diffuse bilateral widespread hazy ground glass and ill-defined patchy opacities. Suggestion of early Fabrizio B lines in the lung bases. Patchy retrocardiac opacity is also present Mediastinum: Mediastinal contours appear normal. Heart size is enlarged. Bones and chest wall: No suspicious bony lesions. Overlying soft tissues appear unremarkable. IMPRESSION: Widespread ill-defined and patchy groundglass opacities suggestive of pulmonary edema, although recommend clinical correlation given the absence of any recent comparison studies. If there is persistent clinical diagnostic uncertainty, continued surveillance with short interval chest radiographs after treatment is recommended. Cardiomegaly Dictated by: Derrell Benson M.D. on 04/12/2018 at 7:52 ECG Data Attestation: I personally reviewed and interpreted this ECG as follows: Prior ECG tracings: not available for review Interpretation: EKG 1. Sinus rhythm rate 59 T-wave inversion noted in aVL ST depression noted in lead 1. EKG 2.: SINUS RHYTHM RATE 59 [place] INTERVAL 177 PERSISTENT T-WAVE INVERSION IN AVL AND PERSISTENT ST DEPRESSION AND T-WAVE INVERSION IN LEAD 1. EKG FROM OFFICE IS OBTAINED FROM 08/18/2017. SLIGHTLY DIFFICULT TO READ BUT DOES NOT SHOW T-WAVE INVERSION IN AVL OR ST DEPRESSION IN AVL. MDM Narrative Medical decision making narrative: The patient is urinated multiple times with IV Lasix. His breathing has overall improved. However his EKG status remains the same. He has new EKG changes with T-wave inversion in aVL and ST depression along with very low but still considered indeterminate troponins. Patient is followed by Dr. Rosa in [place] Dr. Beal request patient be transfered where cardiology is able to consult and evaluate I spoke with Dr. Blue, stop attacher at [facility]. She is happy to consult on patient and right recommend admitting to Medicine Dr. Padilla hospitalist at [facility] has been updated patient's symptoms test results EKG changes. Happy to accept patient for transfer. Discharge Plan Departure Patient Disposition: [facility] Clinical Impression: CHF (congestive heart failure), Abnormal ECG Prescriptions: No Action carvedilol [Coreg] 25 MG tablet 25 mg PO BID Qty: 0 RF: 0 aspirin [Adult Aspirin Regimen] 81 mg tablet,delayed release (DR/EC) 162 mg PO DAILY RF: 0 cholecalciferol (vitamin D3) 1,000 unit capsule 1,000 unit PO QPM RF: 0 lansoprazole 15 mg capsule,delayed release(DR/EC) 15 mg PO BID Qty: 30 RF: 1 amiodarone 200 mg Tablet 200 mg PO DAILY RF: 0 colchicine 0.6 mg Tablet 0.6 mg PO DAILY PRN (Reason: Gout) RF: 0 pioglitazone [Actos] 30 mg Tablet 30 mg PO QPM RF: 0 ketoconazole 2 % Cream 1 applic TOPICAL BID RF: 0 ezetimibe [Zetia] 10 mg Tablet 10 mg PO QPM RF: 0 One Touch Ultra Test Strips strip RF: 0 insulin glargine [Basaglar KwikPen U-100 Insulin] 100 unit/mL (3 mL) insulin pen 35 units subcut BID RF: 0 atorvastatin 80 mg tablet 80 mg PO BEDTIME RF: 0 metformin 1,000 mg tablet 1,000 mg PO BID RF: 0 lisinopril 30 mg tablet 30 mg PO DAILY RF: 0 levothyroxine 112 mcg tablet 112 mcg PO DAILY RF: 0 famotidine [Pepcid AC] 10 mg Tablet 10 mg PO DAILY PRN (Reason: Indigestion) RF: 0 furosemide 20 mg tablet 20 mg PO DAILY PRN (Reason: Edema) RF: 0 insulin aspart U-100 [Novolog Flexpen U-100 Insulin] 100 unit/mL insulin pen See Label Instructions .ROUTE .COMPLEX RF: 0 potassium chloride 20 mEq Tablet Extended Release 20 meq PO DAILY RF: 0
[2018-04-12 07:59] LABS: INR 1.5 (0.9-1.3); Prothrombin Time 17.1 SECONDS (10.1-12.7)
[2018-04-12 08:02] LABS: PTT Partial Thromboplastin Tim 34 SECONDS (26.4-36.2)
[2018-04-12 08:04] LABS: Alanine Aminotransferase 42 IU/L (21-72); Albumin 3.8 g/dL (3.5-5.0); Albumin Globulin Ratio 1.5 (1.0-2.8); Alkaline Phosphatase 102 U/L (38-126); Aspartate Aminotransferase 29 IU/L (17-59); BUN Creatinine Ratio 22.5 (6-22); Bilirubin Total 0.9 mg/dL (0.2-1.3); Blood Urea Nitrogen 18 mg/dL (9-20); Carbon Dioxide 28 mmol/L (22-32); Chloride 103 mmol/L (98-107); Creatine Kinase 183 U/L (55-170); Estimated Glomerular Filt Rate > 60.0 mL/min (>60); Globulin 2.5 g/dL (1.7-4.1); Glucose 75 mg/dL (80-110); HEMOLYSIS < 15 (0-50); Magnesium 1.6 mg/dL (1.6-2.3); Sodium 142 mmol/L (137-145); Total Protein 6.3 g/dL (6.3-8.2)
[2018-04-12 08:05] VITALS: BP 177/58; PULSE 53; RESP 22; O2SAT 95
[2018-04-12 08:05] LABS: Add Manual Diff / Slide Review NO; Basophils Percent Auto 0.3 % (0-2); Eosinophils Percent Auto 3.8 % (2-4); Hematocrit 36.4 % (41-53); Hemoglobin 12.8 g/dL (13.5-17.5); Lymphocytes Percent Auto 16.4 % (25-40); Mean Corpuscular HGB Conc 35.2 % (30-36); Mean Corpuscular Hemoglobin 32.6 PG (26-34); Mean Corpuscular Volume 92.4 fL (80-100); Monocytes Percent Auto 8.5 % (3-14); Neutrophils Absolute Auto 4800 /uL (1500-7000); Platelet Count 108 X10^3/uL (150-400); Red Blood Cell Count 3.94 X10^6/uL (4.5-5.9); Red Cell Distribution Width 14.7 % (11.6-14.8); White Blood Cell Count 6.8 X10^3/uL (4.5-11.0)
[2018-04-12 08:15] LABS: Troponin I 0.029 ng/mL (0.01-0.034)
[2018-04-12 08:19] LABS: CKMB % Relative Index 1.9 % (1.5-5.0); Creatine Kinase MB 3.45 ng/mL (<2.37)
[2018-04-12] MEDS: FUROSEMIDE 40 MG/4 ML VIAL IV (08:33)
--- NOTE | 2018-04-12 09:00 | PC.NURSE ---
patient reports that he feels like his blood sugar was getting low. patient given apple juice, peanut butter and margaret crackers. patient ordered a breakfast tray. provider notified and aware.
[2018-04-12 09:11] VITALS: BP 166/68; PULSE 56; RESP 28; O2SAT 96
--- NOTE | 2018-04-12 09:26 | PC.NURSE ---
Brought patient a breakfast tray
[2018-04-12 10:12] LABS: Troponin I 0.033 ng/mL (0.01-0.034)
[2018-04-12 11:30] VITALS: BP 178/66; PULSE 66; RESP 20; O2SAT 99
[2018-04-12 12:24] VITALS: BP 172/64; PULSE 56; RESP 28; TEMP 36.4; O2SAT 96; BMI 395.9
== END 2018-04-12 12:00 | disposition short-term general hospital (02) ==
PROVIDERS: Emergency Provider Emergency Medicine; PCP Internal Medicine
DX: I50.9 Heart failure, unspecified (principal); R94.31 Abnormal electrocardiogram [ECG] [EKG]
CPT/HCPCS: 36415; 36591; 71045; 80053; 81003; 82550; 82553; 82962; 83605; 83735; 83880; 84484; 85025; 85610; 85730; 93005; 93041; 96374; 99284; 99285; J1940

== ENCOUNTER 2018-05-14 06:48 | Day surgery (SDC) | payer MEDICARE, OTHER, SELFPAY ==
--- NOTE | 2018-05-14 | PATH_ITS ---
[facility] Accession Number: [id number] . 01 Material submitted: . GASTRIC BIOPSIES . 02 Diagnosis: Gastric Biopsies: Mild chronic gastritis involving fundic mucosa. Negative for evidence of Helicobacter on H/E stain. Negative for intestinal metaplasia. Negative for dysplasia and malignancy. [facility]/05/17/2018 . 02 Electronically signed: . Carlos Hall MD, Pathologist NPI- [id number] . 01 Gross description: . Received one formalin-filled container labeled with the patient's name and labeled gastric. The specimen consists of a 0.1 cm portion of tissue, entirely submitted in one cassette. ([id number]) /FRR . 02 Pathologist provided ICD-10: K29.70 . 02 CPT . 331922 Performed at: 01 [facility] [address] [id number] MD Yeison Bhandari MD Phone: [phone] Performed at: 02 [facility] [id number] [place] [id number] MD Halina Dailey MD Phone: [phone]
[2018-05-14 07:18] VITALS: BP 138/56; PULSE 55; RESP 15; TEMP 36.4; O2SAT 97; BMI 37.3
[2018-05-14] MEDS: SODIUM CHLORIDE 0.9% 1,000 ML 200 ML IV (07:30)
[2018-05-14] MEDS: TETRACAINE/BENZOCAINE/BUTAMBEN (CETACAINE) BOTTLE 1 SPRAY TOP (07:49)
[2018-05-14] MEDS: LIDOCAINE 4% SOLN 50 ML 20 ML TOP (07:49)
[2018-05-14] MEDS: MIDAZOLAM 5 MG/5 ML VIAL IV (07:50)
--- NOTE | 2018-05-14 08:02 | PM.HP.1 ---
History of Present Illness Date Patient Seen: 05/14/18 Time Patient Seen: 08:00 Chief complaint: EGD; [id number] Narrative: Patient is a gentleman here for an EGD as a follow-up to confirm healing of gastric ulcers. He had been placed on a proton pump inhibitor but was having side effects and worsening symptoms he says he went back to ranitidine twice a day without my knowledge. Patient History Medical History Alcohol abuse (Chronic) Gout (Chronic) Sleep apnea (Chronic) Hyperlipidemia (Chronic) Coronary artery disease (Chronic) Diabetes (Chronic) Prostate cancer (Chronic) Hypertension (Chronic) Blindness of left eye (Chronic) Surgical History History of coronary artery bypass graft x 2 (Resolved) History of laparoscopic cholecystectomy (Resolved) Hx of heart artery stent (Resolved) Hx of umbilical hernia repair (Resolved) Status post rotator cuff surgery (Resolved) Family & Social History Family History: Reviewed 05/14/18 by Denzel Marquez MD Social History: household members spouse lives independently Yes caregiver/support person No Tobacco & Substance use: Smoking Status Former smoker alcohol intake current alcohol intake frequency 3 or more drinks per day Substance Use Type does not use Meds Home Medications Medication Instructions Recorded Confirmed Type carvedilol [Coreg] 25 mg PO BID #0 10/19/11 05/14/18 History aspirin 81 mg tablet,delayed 162 mg PO DAILY 10/21/17 05/14/18 History release cholecalciferol (vitamin D3) 1,000 1,000 unit PO QPM 10/21/17 05/14/18 History unit capsule One Touch Ultra Test Strips 12/14/17 05/14/18 History colchicine 0.6 mg PO DAILY PRN 12/14/17 05/14/18 History ezetimibe [Zetia] 10 mg PO QPM 12/14/17 05/14/18 History pioglitazone [Actos] 30 mg PO QPM 12/14/17 05/14/18 History insulin glargine [Basaglar KwikPen 35 units SUBCUT BID 01/14/18 05/14/18 History U-100 Insulin] atorvastatin 80 mg PO BEDTIME 04/12/18 05/14/18 History furosemide 20 mg PO DAILY PRN 04/12/18 05/14/18 History insulin aspart U-100 [Novolog See Label Instructions .ROUTE 04/12/18 05/14/18 History Flexpen U-100 Insulin] .COMPLEX levothyroxine 112 mcg PO DAILY 04/12/18 05/14/18 History lisinopril 40 mg PO DAILY 04/12/18 05/14/18 History metformin 1,000 mg PO BID 04/12/18 05/14/18 History potassium chloride 20 meq PO DAILY 04/12/18 05/14/18 History Allergies Allergy/AdvReac Type Severity Reaction Status Date / Time acetaminophen Allergy Severe ANAPHYLAXIS Verified 05/14/18 07:07 codeine Allergy Severe ANAPHYLAXIS Verified 05/14/18 07:07 silicone Allergy Severe Swelling, Verified 05/14/18 07:37 rash Review of Systems Review of Systems No shortness of breath chest pain black or bloody bowel movements this morning. No seizures blackouts. Sugar is in the 1 teens Exam Vital Signs (past 8 hours): - 05/14/18 07:18 Temperature 97.5 F L Pulse Rate 55 L Respiratory Rate 15 Blood Pressure 138/56 L Pulse Oximetry 97 Oxygen Delivery Method Room Air Narrative Exam Narrative: Obese cooperative man in no apparent distress. Lungs are clear no rales or rhonchi heart regular rate and rhythm no murmur or gallop abdomen is protuberant soft nontender without mass patient is alert and oriented x3 Assessment & Plan Plan: Assessment/Plan Narrative: Patient with a history gastric ulcers here to confirm healing. I have discussed the procedure including risks of bleeding perforation with him. He wishes to proceed
--- NOTE | 2018-05-14 08:07 | PM.PREOP ---
Pre-operative Note Interval Note History & Physical reviewed/Exam performed by Physician: Yes Changes to H&P: No ASA Class (for procedural sedation): III
[2018-05-14 08:34] VITALS: BP 156/68; PULSE 64; RESP 24; TEMP 36.6; O2SAT 95
--- NOTE | 2018-05-14 08:39 | P.OP.ENDO_ITS ---
Operative Date/Time/Diagnoses Date of procedure: 05/14/18 Time of procedure: 08:34 Pre-op diagnosis: History of gastric ulcers Post-op diagnosis: same (Residual gastric ulcers) Procedure & Clinicians Study performed: EGD with cold biopsy Same procedure as scheduled: Yes Indications: Confirm ulcer healing. Patient asymptomatic Surgeon: Denzel Marquez Procedure Notes SCOAP/Timeout: Perform Procedure in detail: Patient is placed in left lateral decubitus position underwent IV sedation directed by the surgeon consisting of Versed. He has anaphylaxis to some narcotics. Topical anesthetic was applied was oropharynx. Scope was advanced through bite block into the esophagus. The esophagus was normal GE junction at 42 cm. There was a well-defined transition as though he has a Schatzki ring but the GE junction was widely patent. There was no narrowing. The stomach insufflated well. There is bilious material within it. This was suctioned free. Patient had linear inflammatory areas the pyloric channel was fixed open and mildly narrowed. There was inflammation at the channel. The duodenum was unremarkable of 3rd part. The scope was brought back into the stomach and rectal lax. The proximal stomach had 2 superficial ulcers I biopsied 1 of these. Scope withdrawal time: Not applicable Sedation minutes: 10 Findings: gastric ulcer and gastritis Recommendations: Other recommendation (Take both ranitidine and an over-the- counter proton pump inhibitor like Prilosec OTC or omeprazole.) Plan for aftercare: Follow-up in the office in 3 months Follow up: months (Three) Disposition: PACU
[2018-05-14 08:40] VITALS: BP 154/68; PULSE 57; RESP 19; O2SAT 96
[2018-05-14 08:45] VITALS: BP 160/74; PULSE 52; RESP 15; O2SAT 96
[2018-05-14 08:55] VITALS: BP 130/53; PULSE 53; RESP 16; TEMP 36.4; O2SAT 96
[2018-05-14 09:15] VITALS: BP 149/60; PULSE 53; RESP 18; TEMP 36.4; O2SAT 97
--- NOTE | 2018-05-14 09:33 | SUR.PHASEII ---
stable phase 2, mom arrived for moss picker pt left in stable condition.
== END 2018-05-14 09:32 | disposition home or self-care (01) ==
PROVIDERS: PCP Internal Medicine; Visit Provider Specialist
PROC: 0DJ08ZZ Inspection of Upper Intestinal Tract, Via Natural or Artificial Opening Endoscopic (ICD-10-PCS; CPT 43239; principal; 2018-05-14 07:45)
DX: K29.70 Gastritis, unspecified, without bleeding (principal); K25.9 Gastric ulcer, unspecified as acute or chronic, without hemorrhage or perforation; F10.10 Alcohol abuse, uncomplicated; G47.30 Sleep apnea, unspecified; E78.5 Hyperlipidemia, unspecified; I25.10 Atherosclerotic heart disease of native coronary artery without angina pectoris; E11.9 Type 2 diabetes mellitus without complications; I10 Essential (primary) hypertension; Z87.891 Personal history of nicotine dependence; Z79.4 Long term (current) use of insulin
CPT/HCPCS: 43239; 88305; 99152; J2250; J3010

== ENCOUNTER → 2018-06-07 15:22 | Outpatient (CLI) | payer MEDICARE, OTHER, SELFPAY ==
[2018-06-07 16:31] LABS: Add Manual Diff / Slide Review NO; Basophils Absolute Auto 0 /uL (0-100); Basophils Percent Auto 0.4 % (0-2); Eosinophils Absolute Auto 200 /uL (0-450); Eosinophils Percent Auto 2.7 % (2-4); Hematocrit 38.2 % (41-53); Lymphocytes Absolute Auto 1400 /uL (1100-4500); Lymphocytes Percent Auto 24.1 % (25-40); Mean Corpuscular HGB Conc 33.9 % (30-36); Mean Corpuscular Hemoglobin 31.8 PG (26-34); Mean Corpuscular Volume 93.6 fL (80-100); Monocytes Absolute Auto 500 /uL (0-900); Neutrophils Absolute Auto 3800 /uL (1500-7000); Neutrophils Percent Auto 64.8 % (50-75); Platelet Count 118 X10^3/uL (150-400); Red Blood Cell Count 4.08 X10^6/uL (4.5-5.9); Red Cell Distribution Width 14.9 % (11.6-14.8); White Blood Cell Count 5.9 X10^3/uL (4.5-11.0)
[2018-06-07 16:41] LABS: Hemoglobin A1C% w Est Avg Glu 7.1 % (4.0-6.0)
[2018-06-07 17:25] LABS: TSH w/ Reflex to FT4 2.08 uIU/mL (0.47-4.68)
[2018-06-07 19:06] LABS: Alanine Aminotransferase 46 IU/L (21-72); Albumin 3.8 g/dL (3.5-5.0); Albumin Globulin Ratio 1.7 (1.0-2.8); Alkaline Phosphatase 64 U/L (38-126); Aspartate Aminotransferase 31 IU/L (17-59); BUN Creatinine Ratio 22.5 (6-22); Bilirubin Total 0.7 mg/dL (0.2-1.3); Blood Urea Nitrogen 27 mg/dL (9-20); Calcium 9.5 mg/dL (8.4-10.2); Carbon Dioxide 28 mmol/L (22-32); Chloride 99 mmol/L (98-107); Estimated Glomerular Filt Rate > 60.0 mL/min (>60); Globulin 2.3 g/dL (1.7-4.1); Glucose 280 mg/dL (80-110); HEMOLYSIS < 15 (0-50); Potassium 4.7 mmol/L (3.4-5.1); Sodium 137 mmol/L (137-145); Total Protein 6.1 g/dL (6.3-8.2)
[2018-06-08 15:52] LABS: B Type Natriuretic Peptide 117 (<100)
== END ==
PROVIDERS: PCP Internal Medicine; Visit Provider Internal Medicine
DX: E78.00 Pure hypercholesterolemia, unspecified (principal); I10 Essential (primary) hypertension; E03.9 Hypothyroidism, unspecified; E11.9 Type 2 diabetes mellitus without complications
CPT/HCPCS: 36415; 80053; 83036; 83880; 84443; 85025

== ENCOUNTER 2018-06-19 23:47 | Emergency (ER) | payer MEDICARE, OTHER, SELFPAY ==
--- NOTE | 2018-06-19 23:49 | ED.CHESTPAIN ---
HPI - Chest Pain General Chief Complaint: Chest Pain Stated Complaint: SEVERE CHEST PAIN Time Seen by Provider: 06/19/18 23:48 Source: patient and family Mode of arrival: ambulatory Limitations: no limitations History of Present Illness HPI narrative: 67-year-old male former smoker with history coronary artery disease and gastric ulcers presents with a chief complaint sharp and stabbing episodic epigastric pain that 1st started tonight at 7:00 p.m. while he was having an alcoholic beverage waiting for carry out food. He denies provocation, palliation or radiation. He denies associated symptoms such as vomiting or diaphoresis but does admit that he is short of breath with exertion. He denies any fever chills nor productive cough. On 2nd thought he states that his pain might get a bit worse when lying flat and better upon sitting upright. He denies any change in his medications weight gain or recent travel. MD complaint: chest pain Onset (ago): hour(s) Time: 19:00 Duration: intermittent Onset: during rest Pain location: substernal Severity: moderate Quality: sharp Pain radiation: none Relieving factors: leaning forward Exacerbating factors: supine Associated symptoms: nausea and dyspnea Treatments prior to arrival chest pain: aspirin Related Data Home Medications Medication Instructions Recorded Confirmed carvedilol [Coreg] 25 mg PO BID #0 10/19/11 05/14/18 aspirin 81 mg tablet,delayed 162 mg PO DAILY 10/21/17 05/14/18 release cholecalciferol (vitamin D3) 1,000 1,000 unit PO QPM 10/21/17 05/14/18 unit capsule One Touch Ultra Test Strips 12/14/17 05/14/18 colchicine 0.6 mg PO DAILY PRN 12/14/17 05/14/18 ezetimibe [Zetia] 10 mg PO QPM 12/14/17 05/14/18 pioglitazone [Actos] 30 mg PO QPM 12/14/17 05/14/18 insulin glargine 35 units SUBCUT BID 01/14/18 05/14/18 atorvastatin 80 mg PO BEDTIME 04/12/18 05/14/18 furosemide 20 mg PO DAILY PRN 04/12/18 05/14/18 insulin aspart U-100 See Rx Instructions .ROUTE .COMPLEX 04/12/18 05/14/18 levothyroxine 112 mcg PO DAILY 04/12/18 05/14/18 lisinopril 40 mg PO DAILY 04/12/18 05/14/18 metformin 1,000 mg PO BID 04/12/18 05/14/18 potassium chloride 20 meq PO DAILY 04/12/18 05/14/18 Allergies Allergy/AdvReac Type Severity Reaction Status Date / Time acetaminophen Allergy Severe ANAPHYLAXIS Verified 05/14/18 07:07 codeine Allergy Severe ANAPHYLAXIS Verified 05/14/18 07:07 silicone Allergy Severe Swelling, Verified 05/14/18 07:37 rash Review of Systems Constitutional Denies chills, Denies fever(s), Denies lethargy and Denies weakness Eyes Denies change in vision, Denies eye discharge, Denies irritation and Denies loss of vision ENT Ears, Nose, Mouth, and Throat: Denies change in voice, Denies neck pain and Denies sore throat Cardiovascular Reports chest pain, Denies irregular heart rhythm, Denies lightheadedness, Denies palpitations, Reports dyspnea, Reports dyspnea on exertion and Denies orthopnea Respiratory Denies cough, Reports dyspnea, Reports dyspnea on exertion and Denies wheezing Gastrointestinal Gastrointestinal: Denies abdominal pain, Denies change in bowel habits, Denies diarrhea, Denies nausea and Denies vomiting Genitourinary Denies hematuria, Denies flank pain, Denies urinary incontinence and Denies urinary urgency Musculoskeletal Denies neck pain Integumentary/Breasts Denies pruritus, Denies erythema, Denies rash and Denies wounds Neurologic Denies confusion, Denies loss of vision and Denies weakness Psychiatric Denies anxiety, Denies confusion, Denies depression, Denies homicidal ideation and Denies suicidal ideation Endocrine Denies palpitations Hematologic/Lymphatic Denies easy bruising Allergic/Immunologic Denies wheezing [facility] Medical History Alcohol abuse (Chronic) Gout (Chronic) Sleep apnea (Chronic) Hyperlipidemia (Chronic) Coronary artery disease (Chronic) Diabetes (Chronic) Prostate cancer (Chronic) Hypertension (Chronic) Blindness of left eye (Chronic) Surgical History History of coronary artery bypass graft x 2 (Resolved) History of laparoscopic cholecystectomy (Resolved) Hx of heart artery stent (Resolved) Hx of umbilical hernia repair (Resolved) Status post rotator cuff surgery (Resolved) Family History Father Hypertension Heart disease Mother Stroke Cancer Social History marital status: household members: spouse lives independently: Yes caregiver/support person: No occupational status: employed 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 ) substance use type: does not use Exam Narrative Exam Narrative: GENERAL: 67-year-old male in mild distress, appears stated age HEAD: Atraumatic. Normocephalic. No temporal or scalp tenderness. EYES: Pupils equal round and reactive. Extraocular motions intact. No scleral icterus. No injection or drainage. ENT: Nose without bleeding, purulent drainage or septal hematoma. Throat without erythema, tonsillar hypertrophy or exudate. Uvula midline. Airway patent. NECK: Trachea midline. No JVD or lymphadenopathy. Supple, nontender, no meningeal signs. CARDIOVASCULAR: Regular rate and rhythm without murmurs, gallops, or rubs. RESPIRATORY: Clear to auscultation. Breath sounds equal bilaterally. No wheezes, rales, or rhonchi. GASTROINTESTINAL: Abdomen soft, severe RUQ pain, nondistended. EXTREMITIES: No clubbing, cyanosis. 2+ pitting edema bilateral lower extremities BACK: Nontender without deformity or crepitance. No flank tenderness. NEURO: AOx3. SKIN: No rash or erythema. Initial Vital Signs Initial Vital Signs: Vital Signs Temperature 97.6 F 06/19/18 23:50 Pulse Rate 76 06/19/18 23:50 Respiratory Rate 10 L 06/19/18 23:50 Blood Pressure 122/85 06/19/18 23:50 Pulse Oximetry 100 06/19/18 23:50 Course Orders Ordered: ED Orders 06/19/18 23:52 XR chest 1V Stat Complete Blood Count AUTO DIFF Stat Comprehensive Metabolic Panel Stat Lipase Stat Partial Thromboplastin Time Stat Prothrombin Time INR Stat Troponin & CK Cardiac Panel Stat EKG-12 Lead Stat 06/20/18 00:00 Acetaminophen Stat B Type Natriuretic Peptide Stat Ethanol (ETOH) Stat Hepatitis Acute Panel Stat Monotest Stat Salicylate Stat 06/20/18 01:15 US abdomen complete Stat 06/20/18 01:48 Lactate (Lactic Acid) Stat 06/20/18 02:55 Blood Culture Stat Sodium Chloride (Normal Saline 0.9%) 1,000 mls @ 1,000 mls/hr IV BOLUS ONE Stop: 06/20/18 05:08 Last Admin: 06/20/18 04:13 Dose: 1,000 mls/hr Nitroglycerin (Nitrostat) 0.4 mg SL [id number] PRN PRN Reason: Chest Pain Last Admin: 06/20/18 00:13 Dose: 0.4 mg Admin: 06/20/18 00:08 Dose: 0.4 mg Ondansetron HCl (Zofran) 4 mg IV Q4HR PRN PRN Reason: Nausea And Vomiting Last Admin: 06/20/18 01:13 Dose: 4 mg Discontinued Medications Hydromorphone HCl (Dilaudid) 0.5 mg IV NOW ONE Stop: 06/20/18 01:03 Last Admin: 06/20/18 01:07 Dose: 0.5 mg Sodium Chloride (Normal Saline 0.9%) 500 mls @ 1,000 mls/hr IV BOLUS ONE Stop: 06/20/18 02:35 Last Infusion: 06/20/18 03:03 Dose: 0 mls/hr Admin: 06/20/18 02:10 Dose: 1,000 mls/hr Piperacillin/Tazobactam/Dextrose (Zosyn) 3.375 gm in 50 mls @ 100 mls/hr IV NOW ONE Stop: 06/20/18 02:39 Last Infusion: 06/20/18 03:04 Dose: 0 mls/hr Admin: 06/20/18 02:27 Dose: 100 mls/hr Sodium Chloride (Normal Saline 0.9%) 1,000 mls @ 1,000 mls/hr IV BOLUS ONE Stop: 06/20/18 03:44 Last Infusion: 06/20/18 04:00 Dose: 0 mls/hr Admin: 06/20/18 02:48 Dose: 1,000 mls/hr Sodium Chloride (Normal Saline 0.9%) 1,000 mls @ 1,000 mls/hr IV BOLUS ONE Stop: 06/20/18 04:04 Last Infusion: 06/20/18 04:00 Dose: 0 mls/hr Admin: 06/20/18 03:09 Dose: 1,000 mls/hr Reevaluation(s) Reevaluation #1: no change after 1st nitro, no change after 2nd nitro. Time: 00:15 Reevaluation #2: patient becoming increasingly hypotensive, BP down to 106. Lactate of 4.1 meets severe sepsis criteria at 0148. Fluid goal of 30mL/kg over 3 hours initiated. Fluid bolus range of 2331mL (77.7kg IBW x 30mL/kg) to 3891mL (129.7kg ABW x30mL/kg) by 0448. Given extensive cardiac history we will start with IBW with goal of adequate urine output and MAP >65 Consultations Consultation #1: discussion with our hospitalist regarding admission of this patient and he states NO, this is an inappropriate facility given unclear etiology of hepatitis and no GI no change in alcohol intake, no jaundice, no tylenol, no hx of same, no obviously bad food Patient NPO since 1899 call to [facility] given his hx there. They have beds and are checking on ability to perform ERCP Consultation #2: call to GI at [facility] (Brien) whom is happy to become involved in care of patient as ERCP is clearly indicated call to Hospitalist at [facility] (Mikaela) recommends discussion with data center engineer call to Metal Mixer at [facility] (Chauncey) whom recommends step down call back to Hospitalist whom is happy to accept. Requests call for any clinical change [facility] called with ETA [id number] Vital Signs - 8 hr 06/19/18 23:50 06/20/18 00:08 06/20/18 00:11 Temperature 97.6 F Pulse Rate 76 75 75 Respiratory Rate 10 L Blood Pressure 122/85 136/47 L 133/44 L Blood Pressure [Left Arm] Pulse Oximetry 100 06/20/18 00:13 06/20/18 00:16 06/20/18 01:30 Temperature Pulse Rate 75 74 64 Respiratory Rate 14 Blood Pressure 133/84 116/51 L Blood Pressure [Left Arm] 102/33 L Pulse Oximetry 97 06/20/18 01:40 06/20/18 02:00 06/20/18 02:15 Temperature Pulse Rate 67 62 62 Respiratory Rate 25 H 22 27 H Blood Pressure Blood Pressure [Left Arm] 108/34 L 91/32 L 102/39 L Pulse Oximetry 98 97 98 06/20/18 02:43 06/20/18 03:06 06/20/18 03:34 Temperature Pulse Rate 65 72 61 Respiratory Rate 25 H 25 H 21 Blood Pressure Blood Pressure [Left Arm] 109/45 L 112/40 L 106/44 L Pulse Oximetry 98 97 06/20/18 03:50 06/20/18 04:31 Temperature Pulse Rate 64 65 Respiratory Rate 28 H 29 H Blood Pressure Blood Pressure [Left Arm] 113/50 L 101/49 L Pulse Oximetry 97 98 MDM - Chest Pain Medical Records Data Attestation: I reviewed the patient's medical records. Lab Data Attestation: I reviewed the patient's lab results. Result diagrams: 06/20/18 00:00 06/20/18 00:00 Lab Results 06/20/18 06/20/18 06/20/18 Range/Units 00:00 00:00 00:00 WBC 2.2 L (4.5-11.0) X10^3/uL RBC 4.08 L (4.5-5.9) X10^6/uL Hgb 12.8 L (13.5-17.5) g/dL Hct 38.4 L (41-53) % MCV 94.1 (80-100) fL MCH 31.4 (26-34) PG MCHC 33.4 (30-36) % RDW 14.6 (11.6-14.8) % Plt Count 98 L (150-400) X10^3/uL Neut % (Auto) 55.4 (50-75) % Lymph % (Auto) 31.9 (25-40) % [place] % (Auto) 11.9 (3-14) % Eos % (Auto) 0.5 L (2-4) % Baso % (Auto) 0.3 (0-2) % Neut # (Auto) 1200 L (8389-3572) /uL Lymph # (Auto) 700 L (5579-3432) /uL [place] # (Auto) 300 (0-900) /uL Eos # (Auto) 0 (0-450) /uL Baso # (Auto) 0 (0-100) /uL PT 18.7 H (10.1-12.7) SECONDS INR 1.6 H (0.9-1.3) APTT 30 D (26.4-36.2) SECONDS Sodium 136 L (137-145) mmol/L Potassium 4.8 (3.4-5.1) mmol/L Chloride 98 (98-107) mmol/L Carbon Dioxide 23 (22-32) mmol/L BUN 24 H (9-20) mg/dL Creatinine 1.00 (0.66-1.25) mg/dL Estimated GFR > 60.0 (>60) mL/min BUN/Creatinine Ratio 24.0 H (6-22) Glucose 272 H (80-110) mg/dL Lactate (0.7-2.1) mmol/L Calcium 9.2 (8.4-10.2) mg/dL Total Bilirubin 2.1 H (0.2-1.3) mg/dL AST 00140 H (17-59) IU/L ALT 7834 H (21-72) IU/L Alkaline Phosphatase 148 H (38-126) U/L Total Creatine Kinase 161 (55-170) U/L CK-MB (CK-2) 3.70 H (<2.37) ng/mL CK-MB (CK-2) Rel Index 2.3 (1.5-5.0) % Troponin I 0.021 (0.01-0.034) ng/mL B-Natriuretic Peptide (<100) Total Protein 6.6 (6.3-8.2) g/dL Albumin 3.9 (3.5-5.0) g/dL Globulin 2.7 (1.7-4.1) g/dL Albumin/Globulin Ratio 1.4 (1.0-2.8) Lipase 154 (23-300) U/L Salicylates (<20) mg/dL Acetaminophen (10-30) ug/mL Ethyl Alcohol mg/dL Monoscreen (Negative) 06/20/18 06/20/18 06/20/18 Range/Units 00:00 00:00 00:00 WBC (4.5-11.0) X10^3/uL RBC (4.5-5.9) X10^6/uL Hgb (13.5-17.5) g/dL Hct (41-53) % MCV (80-100) fL MCH (26-34) PG MCHC (30-36) % RDW (11.6-14.8) % Plt Count (150-400) X10^3/uL Neut % (Auto) (50-75) % Lymph % (Auto) (25-40) % [place] % (Auto) (3-14) % Eos % (Auto) (2-4) % Baso % (Auto) (0-2) % Neut # (Auto) (3988-3015) /uL Lymph # (Auto) (2644-8439) /uL [place] # (Auto) (0-900) /uL Eos # (Auto) (0-450) /uL Baso # (Auto) (0-100) /uL PT (10.1-12.7) SECONDS INR (0.9-1.3) APTT (26.4-36.2) SECONDS Sodium (137-145) mmol/L Potassium (3.4-5.1) mmol/L Chloride (98-107) mmol/L Carbon Dioxide (22-32) mmol/L BUN (9-20) mg/dL Creatinine (0.66-1.25) mg/dL Estimated GFR (>60) mL/min BUN/Creatinine Ratio (6-22) Glucose (80-110) mg/dL Lactate (0.7-2.1) mmol/L Calcium (8.4-10.2) mg/dL Total Bilirubin (0.2-1.3) mg/dL AST (17-59) IU/L ALT (21-72) IU/L Alkaline Phosphatase (38-126) U/L Total Creatine Kinase (55-170) U/L CK-MB (CK-2) (<2.37) ng/mL CK-MB (CK-2) Rel Index (1.5-5.0) % Troponin I (0.01-0.034) ng/mL B-Natriuretic Peptide < 100 (<100) Total Protein (6.3-8.2) g/dL Albumin (3.5-5.0) g/dL Globulin (1.7-4.1) g/dL Albumin/Globulin Ratio (1.0-2.8) Lipase (23-300) U/L Salicylates 2.0 (<20) mg/dL Acetaminophen < 10 L (10-30) ug/mL Ethyl Alcohol 12 mg/dL Monoscreen (Negative) 06/20/18 06/20/18 Range/Units 00:00 01:48 WBC (4.5-11.0) X10^3/uL RBC (4.5-5.9) X10^6/uL Hgb (13.5-17.5) g/dL Hct (41-53) % MCV (80-100) fL MCH (26-34) PG MCHC (30-36) % RDW (11.6-14.8) % Plt Count (150-400) X10^3/uL Neut % (Auto) (50-75) % Lymph % (Auto) (25-40) % [place] % (Auto) (3-14) % Eos % (Auto) (2-4) % Baso % (Auto) (0-2) % Neut # (Auto) (4427-2220) /uL Lymph # (Auto) (2629-2546) /uL [place] # (Auto) (0-900) /uL Eos # (Auto) (0-450) /uL Baso # (Auto) (0-100) /uL PT (10.1-12.7) SECONDS INR (0.9-1.3) APTT (26.4-36.2) SECONDS Sodium (137-145) mmol/L Potassium (3.4-5.1) mmol/L Chloride (98-107) mmol/L Carbon Dioxide (22-32) mmol/L BUN (9-20) mg/dL Creatinine (0.66-1.25) mg/dL Estimated GFR (>60) mL/min BUN/Creatinine Ratio (6-22) Glucose (80-110) mg/dL Lactate 4.1 H (0.7-2.1) mmol/L Calcium (8.4-10.2) mg/dL Total Bilirubin (0.2-1.3) mg/dL AST (17-59) IU/L ALT (21-72) IU/L Alkaline Phosphatase (38-126) U/L Total Creatine Kinase (55-170) U/L CK-MB (CK-2) (<2.37) ng/mL CK-MB (CK-2) Rel Index (1.5-5.0) % Troponin I (0.01-0.034) ng/mL B-Natriuretic Peptide (<100) Total Protein (6.3-8.2) g/dL Albumin (3.5-5.0) g/dL Globulin (1.7-4.1) g/dL Albumin/Globulin Ratio (1.0-2.8) Lipase (23-300) U/L Salicylates (<20) mg/dL Acetaminophen (10-30) ug/mL Ethyl Alcohol mg/dL Monoscreen Negative (Negative) Imaging Data US - abdomen: Radiologist's impression: mild CBD dilatation. Distal CBD stone. S/P choley [facility] Narrative Medical decision making narrative: 67-year-old male with cardiac history presents with epigastric chest pain which started a few hours prior to arrival. Initial focus was of cardiac etiology, but it became increasingly clear that this is a GI problem. Patient initial vitals very stable, no fever, no chills, no jaundice. RUQ pain worsening and over visit BP slowly dropping to 100. Patient never tachy, but he is on coreg. Lactate ordered upon receipt of elevated LFTs. Upon receipt of elevated lactate and recognition of severe sepsis fluids ordered at 30mL/kg IBW, ABX ordered, cultures ordered. Patient will go to stepdown at Critical Care Time Critical Care Time: Yes Total Critical Care Time: 60 Attestation: The high probability of a clinically significant, sudden or life threatening deterioration of the [cardiovascular] system(s) required my full and direct attention, intervention and personal management. The aggregate critical care time was [60] minutes. This time is in addition to time spent performing reported procedures but includes the following: [x] Data Review and interpretation [x] Patient assessment and monitoring of vital signs [x] Documentation [x] Medication orders and management Discharge Plan Departure Patient Disposition: [facility] Clinical Impression: Acute hepatitis, Choledocholithiasis, Severe sepsis Prescriptions: No Action carvedilol [Coreg] 25 MG tablet 25 mg PO BID Qty: 0 RF: 0 aspirin [Adult Aspirin Regimen] 81 mg tablet,delayed release (DR/EC) 162 mg PO DAILY RF: 0 cholecalciferol (vitamin D3) 1,000 unit capsule 1,000 unit PO QPM RF: 0 colchicine 0.6 mg Tablet 0.6 mg PO DAILY PRN (Reason: Gout) RF: 0 pioglitazone [Actos] 30 mg Tablet 30 mg PO QPM RF: 0 ezetimibe [Zetia] 10 mg Tablet 10 mg PO QPM RF: 0 One Touch Ultra Test Strips strip RF: 0 insulin glargine 100 unit/mL (3 mL) insulin pen 35 units subcut BID RF: 0 atorvastatin 80 mg tablet 80 mg PO BEDTIME RF: 0 metformin 1,000 mg tablet 1,000 mg PO BID RF: 0 lisinopril 30 mg tablet 40 mg PO DAILY RF: 0 levothyroxine 112 mcg tablet 112 mcg PO DAILY RF: 0 furosemide 20 mg tablet 20 mg PO DAILY PRN (Reason: Edema) RF: 0 insulin aspart U-100 100 unit/mL insulin pen See Rx Instructions .ROUTE .COMPLEX RF: 0 potassium chloride 20 mEq Tablet Extended Release 20 meq PO DAILY RF: 0 Referrals: Reji Malave MD [Primary Care Provider] -
[2018-06-19 23:50] VITALS: BP 122/85; PULSE 76; RESP 10; TEMP 36.4; O2SAT 100
--- NOTE | 2018-06-19 23:52 | DI.RAD.S_ITS ---
PROCEDURE: XR CHEST 1V INDICATIONS: chest pain TECHNIQUE: One view of the chest was acquired. COMPARISON: [facility], CR, XR CHEST 1V, 04/12/2018, 7:43. FINDINGS: Surgical changes and devices: Sternal wires. Lungs and pleura: Lungs are clear. No pleural effusions or pneumothorax. Mediastinum: Mediastinal contours appear normal. Heart size is normal. Bones and chest wall: No suspicious bony lesions. Overlying soft tissues appear unremarkable. IMPRESSION: No acute pulmonary process. Dictated by: Lucy Delgado M.D. on 06/20/2018 at 9:42 Approved by: Lucy Delgado M.D. on 06/20/2018 at 9:43
[2018-06-20] VITALS (15 sets, daily range): BP systolic 91–136; BP diastolic 32–84; PULSE 61–75; RESP 14–29; O2SAT 97–98
[2018-06-20] MEDS: NITROGLYCERIN 0.4 MG SL TAB SL ×2 (00:08→00:13)
--- NOTE | 2018-06-20 00:10 | ED_ITS ---
HPI - Chest Pain General Chief Complaint: Chest Pain Stated Complaint: SEVERE CHEST PAIN Time Seen by Provider: 06/19/18 23:48 Source: patient and family Mode of arrival: ambulatory Limitations: no limitations History of Present Illness HPI narrative: 67-year-old male former smoker with history coronary artery disea se and gastric ulcers presents with a chief complaint sharp and stabbing episodic epigastric pain that 1st started tonight at 7:00 p.m. while he was having an alcoholic beverage waiting for carry out food. He denies provocation, palliation or radiation. He denies associated symptoms such as vomiting or diaphoresis but does admit that he is short of breath with exertion. He denies any fever chills nor productive cough. On 2nd thought he states that his pain might get a bit worse when lying flat and better upon sitting upright. He denies any change in his medications weight gain or recent travel. MD complaint: chest pain Onset (ago): hour(s) Time: 19:00 Duration: intermittent Onset: during rest Pain location: substernal Severity: moderate Quality: sharp Pain radiation: none Relieving factors: leaning forward Exacerbating factors: supine Associated symptoms: nausea and dyspnea Treatments prior to arrival chest pain: aspirin Related Data Home Medications Medication Instructions Recorded Confirmed carvedilol [Coreg] 25 mg PO BID #0 10/19/11 05/14/18 aspirin 81 mg tablet,delayed 162 mg PO DAILY 10/21/17 05/14/18 release cholecalciferol (vitamin D3) 1,000 1,000 unit PO QPM 10/21/17 05/14/18 unit capsule One Touch Ultra Test Strips 12/14/17 05/14/18 colchicine 0.6 mg PO DAILY PRN 12/14/17 05/14/18 ezetimibe [Zetia] 10 mg PO QPM 12/14/17 05/14/18 pioglitazone [Actos] 30 mg PO QPM 12/14/17 05/14/18 insulin glargine 35 units SUBCUT BID 01/14/18 05/14/18 atorvastatin 80 mg PO BEDTIME 04/12/18 05/14/18 furosemide 20 mg PO DAILY PRN 04/12/18 05/14/18 insulin aspart U-100 See Rx Instructions .ROUTE .COMPLEX 04/12/18 05/14/18 levothyroxine 112 mcg PO DAILY 04/12/18 05/14/18 lisinopril 40 mg PO DAILY 04/12/18 05/14/18 metformin 1,000 mg PO BID 04/12/18 05/14/18 potassium chloride 20 meq PO DAILY 04/12/18 05/14/18 Allergies Allergy/AdvReac Type Severity Reaction Status Date / Time acetaminophen Allergy Severe ANAPHYLAXIS Verified 05/14/18 07:07 codeine Allergy Severe ANAPHYLAXIS Verified 05/14/18 07:07 silicone Allergy Severe Swelling, Verified 05/14/18 07:37 rash Review of Systems Constitutional Denies chills, Denies fever(s), Denies lethargy and Denies weakness Eyes Denies change in vision, Denies eye discharge, Denies irritation and Denies loss of vision ENT Ears, Nose, Mouth, and Throat: Denies change in voice, Denies neck pain and Denies sore throat Cardiovascular Reports chest pain, Denies irregular heart rhythm, Denies lightheadedness, Denies palpitations, Reports dyspnea, Reports dyspnea on exertion and Denies orthopnea Respiratory Denies cough, Reports dyspnea, Reports dyspnea on exertion and Denies wheezing Gastrointestinal Gastrointestinal: Denies abdominal pain, Denies change in bowel habits, Denies diarrhea, Denies nausea and Denies vomiting Genitourinary Denies hematuria, Denies flank pain, Denies urinary incontinence and Denies urinary urgency Musculoskeletal Denies neck pain Integumentary/Breasts Denies pruritus, Denies erythema, Denies rash and Denies wounds Neurologic Denies confusion, Denies loss of vision and Denies weakness Psychiatric Denies anxiety, Denies confusion, Denies depression, Denies homicidal ideation and Denies suicidal ideation Endocrine Denies palpitations Hematologic/Lymphatic Denies easy bruising Allergic/Immunologic Denies wheezing [facility] Medical History Alcohol abuse (Chronic) Gout (Chronic) Sleep apnea (Chronic) Hyperlipidemia (Chronic) Coronary artery disease (Chronic) Diabetes (Chronic) Prostate cancer (Chronic) Hypertension (Chronic) Blindness of left eye (Chronic) Surgical History History of coronary artery bypass graft x 2 (Resolved) History of laparoscopic cholecystectomy (Resolved) Hx of heart artery stent (Resolved) Hx of umbilical hernia repair (Resolved) Status post rotator cuff surgery (Resolved) Family History Father Hypertension Heart disease Mother Stroke Cancer Social History marital status: household members: spouse lives independently: Yes caregiver/support person: No occupational status: employed 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 ) substance use type: does not use Exam Narrative Exam Narrative: GENERAL: 67-year-old male in mild distress, appears stated age HEAD: Atraumatic. Normocephalic. No temporal or scalp tenderness. EYES: Pupils equal round and reactive. Extraocular motions intact. No scleral icterus. No injection or drainage. ENT: Nose without bleeding, purulent drainage or septal hematoma. Throat without erythema, tonsillar hypertrophy or exudate. Uvula midline. Airway patent. NECK: Trachea midline. No JVD or lymphadenopathy. Supple, nontender, no meningeal signs. CARDIOVASCULAR: Regular rate and rhythm without murmurs, gallops, or rubs. RESPIRATORY: Clear to auscultation. Breath sounds equal bilaterally. No wheezes, rales, or rhonchi. GASTROINTESTINAL: Abdomen soft, severe RUQ pain, nondistended. EXTREMITIES: No clubbing, cyanosis. 2+ pitting edema bilateral lower extremities BACK: Nontender without deformity or crepitance. No flank tenderness. NEURO: AOx3. SKIN: No rash or erythema. Initial Vital Signs Initial Vital Signs: Vital Signs Temperature 97.6 F 06/19/18 23:50 Pulse Rate 76 06/19/18 23:50 Respiratory Rate 10 L 06/19/18 23:50 Blood Pressure 122/85 06/19/18 23:50 Pulse Oximetry 100 06/19/18 23:50 Course Orders Ordered: ED Orders 06/19/18 23:52 XR chest 1V Stat Complete Blood Count AUTO DIFF Stat Comprehensive Metabolic Panel Stat Lipase Stat Partial Thromboplastin Time Stat Prothrombin Time INR Stat Troponin & CK Cardiac Panel Stat EKG-12 Lead Stat 06/20/18 00:00 Acetaminophen Stat B Type Natriuretic Peptide Stat Ethanol (ETOH) Stat Hepatitis Acute Panel Stat Monotest Stat Salicylate Stat 06/20/18 01:15 US abdomen complete Stat 06/20/18 01:48 Lactate (Lactic Acid) Stat 06/20/18 02:55 Blood Culture Stat Sodium Chloride (Normal Saline 0.9%) 1,000 mls @ 1,000 mls/hr IV BOLUS ONE Stop: 06/20/18 05:08 Last Admin: 06/20/18 04:13 Dose: 1,000 mls/hr Nitroglycerin (Nitrostat) 0.4 mg SL [id number] PRN PRN Reason: Chest Pain Last Admin: 06/20/18 00:13 Dose: 0.4 mg Admin: 06/20/18 00:08 Dose: 0.4 mg Ondansetron HCl (Zofran) 4 mg IV Q4HR PRN PRN Reason: Nausea And Vomiting Last Admin: 06/20/18 01:13 Dose: 4 mg Discontinued Medications Hydromorphone HCl (Dilaudid) 0.5 mg IV NOW ONE Stop: 06/20/18 01:03 Last Admin: 06/20/18 01:07 Dose: 0.5 mg Sodium Chloride (Normal Saline 0.9%) 500 mls @ 1,000 mls/hr IV BOLUS ONE Stop: 06/20/18 02:35 Last Infusion: 06/20/18 03:03 Dose: 0 mls/hr Admin: 06/20/18 02:10 Dose: 1,000 mls/hr Piperacillin/Tazobactam/Dextrose (Zosyn) 3.375 gm in 50 mls @ 100 mls/hr IV NOW ONE Stop: 06/20/18 02:39 Last Infusion: 06/20/18 03:04 Dose: 0 mls/hr Admin: 06/20/18 02:27 Dose: 100 mls/hr Sodium Chloride (Normal Saline 0.9%) 1,000 mls @ 1,000 mls/hr IV BOLUS ONE Stop: 06/20/18 03:44 Last Infusion: 06/20/18 04:00 Dose: 0 mls/hr Admin: 06/20/18 02:48 Dose: 1,000 mls/hr Sodium Chloride (Normal Saline 0.9%) 1,000 mls @ 1,000 mls/hr IV BOLUS ONE Stop: 06/20/18 04:04 Last Infusion: 06/20/18 04:00 Dose: 0 mls/hr Admin: 06/20/18 03:09 Dose: 1,000 mls/hr Reevaluation(s) Reevaluation #1: no change after 1st nitro, no change after 2nd nitro. Time: 00:15 Reevaluation #2: patient becoming increasingly hypotensive, BP down to 106. Lactate of 4.1 meets severe sepsis criteria at 0148. Fluid goal of 30mL/kg over 3 hours initiated. Fluid bolus range of 2331mL (77.7kg IBW x 30mL/kg) to 3891mL (129.7kg ABW x30mL/kg) by 0448. Given extensive cardiac history we will start with IBW with goal of adequate urine output and MAP >65 Consultations Consultation #1: discussion with our hospitalist regarding admission of this patient and he states NO, this is an inappropriate facility given unclear etiology of hepatitis and no GI no change in alcohol intake, no jaundice, no tylenol, no hx of same, no obviously bad food Patient NPO since 1899 call to [facility] given his hx there. They have beds and are checking on ability to perform ERCP Consultation #2: call to GI at [facility] (Brien) whom is happy to become involved in care of patient as ERCP is clearly indicated call to Hospitalist at [facility] (Mikaela) recommends discussion with net developer with [facility] call to [facility] [facility] at [facility] (Chauncey) whom recommends step down call back to Hospitalist whom is happy to accept. Requests call for any clinical change [facility] called with ETA [id number] Vital Signs - 8 hr 06/19/18 23:50 06/20/18 00:08 06/20/18 00:11 Temperature 97.6 F Pulse Rate 76 75 75 Respiratory Rate 10 L Blood Pressure 122/85 136/47 L 133/44 L Blood Pressure [Left Arm] Pulse Oximetry 100 06/20/18 00:13 06/20/18 00:16 06/20/18 01:30 Temperature Pulse Rate 75 74 64 Respiratory Rate 14 Blood Pressure 133/84 116/51 L Blood Pressure [Left Arm] 102/33 L Pulse Oximetry 97 06/20/18 01:40 06/20/18 02:00 06/20/18 02:15 Temperature Pulse Rate 67 62 62 Respiratory Rate 25 H 22 27 H Blood Pressure Blood Pressure [Left Arm] 108/34 L 91/32 L 102/39 L Pulse Oximetry 98 97 98 06/20/18 02:43 06/20/18 03:06 06/20/18 03:34 Temperature Pulse Rate 65 72 61 Respiratory Rate 25 H 25 H 21 Blood Pressure Blood Pressure [Left Arm] 109/45 L 112/40 L 106/44 L Pulse Oximetry 98 97 06/20/18 03:50 06/20/18 04:31 Temperature Pulse Rate 64 65 Respiratory Rate 28 H 29 H Blood Pressure Blood Pressure [Left Arm] 113/50 L 101/49 L Pulse Oximetry 97 98 MDM - Chest Pain Medical Records Data Attestation: I reviewed the patient's medical records. Lab Data Attestation: I reviewed the patient's lab results. Result diagrams: 06/20/18 00:00 06/20/18 00:00 Lab Results 06/20/18 06/20/18 06/20/18 Range/Units 00:00 00:00 00:00 WBC 2.2 L (4.5-11.0) X10^3/uL RBC 4.08 L (4.5-5.9) X10^6/uL Hgb 12.8 L (13.5-17.5) g/dL Hct 38.4 L (41-53) % MCV 94.1 (80-100) fL MCH 31.4 (26-34) PG MCHC 33.4 (30-36) % RDW 14.6 (11.6-14.8) % Plt Count 98 L (150-400) X10^3/uL Neut % (Auto) 55.4 (50-75) % Lymph % (Auto) 31.9 (25-40) % Duchesne % (Auto) 11.9 (3-14) % Eos % (Auto) 0.5 L (2-4) % Baso % (Auto) 0.3 (0-2) % Neut # (Auto) 1200 L (7533-8623) /uL Lymph # (Auto) 700 L (5511-8264) /uL Duc[place]ne # (Auto) 300 (0-900) /uL Eos # (Auto) 0 (0-450) /uL Baso # (Auto) 0 (0-100) /uL PT 18.7 H (10.1-12.7) SECONDS INR 1.6 H (0.9-1.3) APTT 30 D (26.4-36.2) SECONDS Sodium 136 L (137-145) mmol/L Potassium 4.8 (3.4-5.1) mmol/L Chloride 98 (98-107) mmol/L Carbon Dioxide 23 (22-32) mmol/L BUN 24 H (9-20) mg/dL Creatinine 1.00 (0.66-1.25) mg/dL Estimated GFR > 60.0 (>60) mL/min BUN/Creatinine Ratio 24.0 H (6-22) Glucose 272 H (80-110) mg/dL Lactate (0.7-2.1) mmol/L Calcium 9.2 (8.4-10.2) mg/dL Total Bilirubin 2.1 H (0.2-1.3) mg/dL AST 38620 H (17-59) IU/L ALT 7834 H (21-72) IU/L Alkaline Phosphatase 148 H (38-126) U/L Total Creatine Kinase 161 (55-170) U/L CK-MB (CK-2) 3.70 H (<2.37) ng/mL CK-MB (CK-2) Rel Index 2.3 (1.5-5.0) % Troponin I 0.021 (0.01-0.034) ng/mL B-Natriuretic Peptide (<100) Total Protein 6.6 (6.3-8.2) g/dL Albumin 3.9 (3.5-5.0) g/dL Globulin 2.7 (1.7-4.1) g/dL Albumin/Globulin Ratio 1.4 (1.0-2.8) Lipase 154 (23-300) U/L Salicylates (<20) mg/dL Acetaminophen (10-30) ug/mL Ethyl Alcohol mg/dL Monoscreen (Negative) 06/20/18 06/20/18 06/20/18 Range/Units 00:00 00:00 00:00 WBC (4.5-11.0) X10^3/uL RBC (4.5-5.9) X10^6/uL Hgb (13.5-17.5) g/dL Hct (41-53) % MCV (80-100) fL MCH (26-34) PG MCHC (30-36) % RDW (11.6-14.8) % Plt Count (150-400) X10^3/uL Neut % (Auto) (50-75) % Lymph % (Auto) (25-40) % Duchesne % (Auto) (3-14) % Eos % (Auto) (2-4) % Baso % (Auto) (0-2) % Neut # (Auto) (0385-4042) /uL Lymph # (Auto) (0345-8062) /uL Duchesne # (Auto) (0-900) /uL Eos # (Auto) (0-450) /uL Baso # (Auto) (0-100) /uL PT (10.1-12.7) SECONDS INR (0.9-1.3) APTT (26.4-36.2) SECONDS Sodium (137-145) mmol/L Potassium (3.4-5.1) mmol/L Chloride (98-107) mmol/L Carbon Dioxide (22-32) mmol/L BUN (9-20) mg/dL Creatinine (0.66-1.25) mg/dL Estimated GFR (>60) mL/min BUN/Creatinine Ratio (6-22) Glucose (80-110) mg/dL Lactate (0.7-2.1) mmol/L Calcium (8.4-10.2) mg/dL Total Bilirubin (0.2-1.3) mg/dL AST (17-59) IU/L ALT (21-72) IU/L Alkaline Phosphatase (38-126) U/L Total Creatine Kinase (55-170) U/L CK-MB (CK-2) (<2.37) ng/mL CK-MB (CK-2) Rel Index (1.5-5.0) % Troponin I (0.01-0.034) ng/mL B-Natriuretic Peptide < 100 (<100) Total Protein (6.3-8.2) g/dL Albumin (3.5-5.0) g/dL Globulin (1.7-4.1) g/dL Albumin/Globulin Ratio (1.0-2.8) Lipase (23-300) U/L Salicylates 2.0 (<20) mg/dL Acetaminophen < 10 L (10-30) ug/mL Ethyl Alcohol 12 mg/dL Monoscreen (Negative) 06/20/18 06/20/18 Range/Units 00:00 01:48 WBC (4.5-11.0) X10^3/uL RBC (4.5-5.9) X10^6/uL Hgb (13.5-17.5) g/dL Hct (41-53) % MCV (80-100) fL MCH (26-34) PG MCHC (30-36) % RDW (11.6-14.8) % Plt Count (150-400) X10^3/uL Neut % (Auto) (50-75) % Lymph % (Auto) (25-40) % Duchesne % (Auto) (3-14) % Eos % (Auto) (2-4) % Baso % (Auto) (0-2) % Neut # (Auto) (1756-2440) /uL Lymph # (Auto) (9149-1489) /uL Duchesne # (Auto) (0-900) /uL Eos # (Auto) (0-450) /uL Baso # (Auto) (0-100) /uL PT (10.1-12.7) SECONDS INR (0.9-1.3) APTT (26.4-36.2) SECONDS Sodium (137-145) mmol/L Potassium (3.4-5.1) mmol/L Chloride (98-107) mmol/L Carbon Dioxide (22-32) mmol/L BUN (9-20) mg/dL Creatinine (0.66-1.25) mg/dL Estimated GFR (>60) mL/min BUN/Creatinine Ratio (6-22) Glucose (80-110) mg/dL Lactate 4.1 H (0.7-2.1) mmol/L Calcium (8.4-10.2) mg/dL Total Bilirubin (0.2-1.3) mg/dL AST (17-59) IU/L ALT (21-72) IU/L Alkaline Phosphatase (38-126) U/L Total Creatine Kinase (55-170) U/L CK-MB (CK-2) (<2.37) ng/mL CK-MB (CK-2) Rel Index (1.5-5.0) % Troponin I (0.01-0.034) ng/mL B-Natriuretic Peptide (<100) Total Protein (6.3-8.2) g/dL Albumin (3.5-5.0) g/dL Globulin (1.7-4.1) g/dL Albumin/Globulin Ratio (1.0-2.8) Lipase (23-300) U/L Salicylates (<20) mg/dL Acetaminophen (10-30) ug/mL Ethyl Alcohol mg/dL Monoscreen Negative (Negative) Imaging Data US - abdomen: Radiologist's impression: mild CBD dilatation. Distal CBD stone. S/P choley [facility] Narrative Medical decision making narrative: 67-year-old male with cardiac history presents with epigastric chest pain which started a few hours prior to arrival. Initial focus was of cardiac etiology, but it became increasingly clear that this is a GI problem. Patient initial vitals very stable, no fever, no chills, no jaundice. RUQ pain worsening and over visit BP slowly dropping to 100. Patient never tachy, but he is on coreg. Lactate ordered upon receipt of elevated LFTs. Upon receipt of elevated lactate and recognition of severe sepsis fluids ordered at 30mL/kg IBW, ABX ordered, cultures ordered. Patient will go to stepdown at Critical Care Time Critical Care Time: Yes Total Critical Care Time: 60 Attestation: The high probability of a clinically significant, sudden or life threatening deterioration of the [cardiovascular] system(s) required my full and direct attention, intervention and personal management. The aggregate critical care time was [60] minutes. This time is in addition to time spent performing reported procedures but includes the following: [x] Data Review and interpretation [x] Patient assessment and monitoring of vital signs [x] Documentation [x] Medication orders and management Discharge Plan Departure Patient Disposition: [facility] Clinical Impression: Acute hepatitis, Choledocholithiasis, Severe sepsis Prescriptions: No Action carvedilol [Coreg] 25 MG tablet 25 mg PO BID Qty: 0 RF: 0 aspirin [Adult Aspirin Regimen] 81 mg tablet,delayed release (DR/EC) 162 mg PO DAILY RF: 0 cholecalciferol (vitamin D3) 1,000 unit capsule 1,000 unit PO QPM RF: 0 colchicine 0.6 mg Tablet 0.6 mg PO DAILY PRN (Reason: Gout) RF: 0 pioglitazone [Actos] 30 mg Tablet 30 mg PO QPM RF: 0 ezetimibe [Zetia] 10 mg Tablet 10 mg PO QPM RF: 0 One Touch Ultra Test Strips strip RF: 0 insulin glargine 100 unit/mL (3 mL) insulin pen 35 units subcut BID RF: 0 atorvastatin 80 mg tablet 80 mg PO BEDTIME RF: 0 metformin 1,000 mg tablet 1,000 mg PO BID RF: 0 lisinopril 30 mg tablet 40 mg PO DAILY RF: 0 levothyroxine 112 mcg tablet 112 mcg PO DAILY RF: 0 furosemide 20 mg tablet 20 mg PO DAILY PRN (Reason: Edema) RF: 0 insulin aspart U-100 100 unit/mL insulin pen See Rx Instructions .ROUTE .COMPLEX RF: 0 potassium chloride 20 mEq Tablet Extended Release 20 meq PO DAILY RF: 0 Referrals: Reji Malave MD [Primary Care Provider] -
[2018-06-20 00:11] LABS: Add Manual Diff / Slide Review NO; Basophils Absolute Auto 0 /uL (0-100); Basophils Percent Auto 0.3 % (0-2); Eosinophils Absolute Auto 0 /uL (0-450); Eosinophils Percent Auto 0.5 % (2-4); Hematocrit 38.4 % (41-53); Hemoglobin 12.8 g/dL (13.5-17.5); Lymphocytes Absolute Auto 700 /uL (1100-4500); Lymphocytes Percent Auto 31.9 % (25-40); Mean Corpuscular HGB Conc 33.4 % (30-36); Mean Corpuscular Hemoglobin 31.4 PG (26-34); Mean Corpuscular Volume 94.1 fL (80-100); Monocytes Absolute Auto 300 /uL (0-900); Monocytes Percent Auto 11.9 % (3-14); Neutrophils Absolute Auto 1200 /uL (1500-7000); Neutrophils Percent Auto 55.4 % (50-75); Platelet Count 98 X10^3/uL (150-400); Red Blood Cell Count 4.08 X10^6/uL (4.5-5.9); Red Cell Distribution Width 14.6 % (11.6-14.8); White Blood Cell Count 2.2 X10^3/uL (4.5-11.0)
[2018-06-20 00:13] LABS: INR 1.6 (0.9-1.3); Prothrombin Time 18.7 SECONDS (10.1-12.7)
[2018-06-20 00:16] LABS: PTT Partial Thromboplastin Tim 30 SECONDS (26.4-36.2)
[2018-06-20 00:18] LABS: Albumin 3.9 g/dL (3.5-5.0); Albumin Globulin Ratio 1.4 (1.0-2.8); Alkaline Phosphatase 148 U/L (38-126); Bilirubin Total 2.1 mg/dL (0.2-1.3); Blood Urea Nitrogen 24 mg/dL (9-20); Calcium 9.2 mg/dL (8.4-10.2); Carbon Dioxide 23 mmol/L (22-32); Chloride 98 mmol/L (98-107); Creatine Kinase 161 U/L (55-170); Estimated Glomerular Filt Rate > 60.0 mL/min (>60); Globulin 2.7 g/dL (1.7-4.1); Glucose 272 mg/dL (80-110); HEMOLYSIS 18 (0-50); Lipase 154 U/L (23-300); Potassium 4.8 mmol/L (3.4-5.1); Sodium 136 mmol/L (137-145); Total Protein 6.6 g/dL (6.3-8.2)
--- NOTE | 2018-06-20 00:21 | PC.NURSE ---
Pt denies any change in chest pain with SL NTG
[2018-06-20 00:27] LABS: B Type Natriuretic Peptide < 100 (<100)
[2018-06-20 00:30] LABS: Troponin I 0.021 ng/mL (0.01-0.034)
[2018-06-20 00:35] LABS: CKMB % Relative Index 2.3 % (1.5-5.0)
[2018-06-20 00:41] LABS: Alanine Aminotransferase 7834 IU/L (21-72); Aspartate Aminotransferase 11468 IU/L (17-59)
[2018-06-20] MEDS: HYDROMORPHONE 1 MG INJ 0.5 MG IV (01:07)
[2018-06-20 01:10] LABS: Acetaminophen < 10 ug/mL (10-30)
[2018-06-20] MEDS: ONDANSETRON 4 MG/2 ML INJ IV (01:13)
--- NOTE | 2018-06-20 01:15 | DI.US.S_ITS ---
PROCEDURE: US ABDOMEN COMPLETE INDICATIONS: SEVERE RUQ PAIN, LFT'S CRITICALLY ELEVATED TECHNIQUE: Real-time scanning was performed of the abdominal and retroperitoneal organs, with image documentation. COMPARISON: [facility], US, US ABDOMEN COMPLETE, 12/22/2017, 9:38. FINDINGS: Liver: Liver is mildly enlarged measuring 18.6 cm. There is suboptimal visualization secondary to body habitus. Gallbladder: The gallbladder has been removed. Gall bladder fossa is unremarkable. Biliary ducts: Intrahepatic biliary ducts are within normal limits. However, there is marked prominence of the common bile duct with a focus of increased echoes to density distally measuring 13 mm. Pancreas: Visualized portions of the pancreas are sonographically normal. Spleen: Spleen is normal in size and homogeneous in echotexture. Kidneys: Kidneys are normal in size and echotexture. Right kidney measures 11.1 cm long; left kidney measures 11.1 cm long. No hydronephrosis or nephrolithiasis. No solid masses. Aorta: Visualized aorta is normal in caliber at less than 3 cm. Iliacs: Proximal common iliac arteries are not visualized. IVC: Intrahepatic inferior vena cava is patent. Miscellaneous: No free abdominal fluid. IMPRESSION: 1. Dilated common bile duct with focus of increased echogenicity as above. Finding is most suspicious for choledocholithiasis. Further evaluation with CT or MRCP may be obtained as clinically indicated. The above findings are concordant with preliminary report. Dictated by: Lucy Delgado M.D. on 06/20/2018 at 9:22 Approved by: Lucy Delgado M.D. on 06/20/2018 at 9:24
--- NOTE | 2018-06-20 01:45 | PC.NURSE ---
Provider notified of decreasing blood pressure, order recieved for fluid bolus
[2018-06-20 01:49] LABS: Ethanol (ETOH) 12 mg/dL; Monotest Negative (Negative)
[2018-06-20 02:10] LABS: Lactate (Lactic Acid) 4.1 mmol/L (0.7-2.1)
[2018-06-20] MEDS: SODIUM CHLORIDE 0.9% 500 ML 1000 ML IV (02:10)
[2018-06-20] MEDS: PIPERACILLIN-TAZO 3.375 GM/50 ML FROZ.PIGGY IV (02:27)
[2018-06-20] MEDS: SODIUM CHLORIDE 0.9% 1,000 ML 1000 ML IV ×3 (02:48→04:13)
[2018-06-23 08:33] LABS: Hepatitis A Antibody IgM NONREACTIVE (NONREACTIVE); Hepatitis Acute Panel Interp 0.01; Hepatitis B Core Antibody IgM NONREACTIVE (NONREACTIVE); Hepatitis B Surface Antigen NONREACTIVE (NONREACTIVE); Hepatitis C Antibody NONREACTIVE
== END 2018-06-20 05:12 | disposition short-term general hospital (02) ==
PROVIDERS: Emergency Provider Emergency Medicine; PCP Internal Medicine
DX: K80.50 Calculus of bile duct without cholangitis or cholecystitis without obstruction (principal); B17.9 Acute viral hepatitis, unspecified; I10 Essential (primary) hypertension; E78.5 Hyperlipidemia, unspecified; I25.10 Atherosclerotic heart disease of native coronary artery without angina pectoris
CPT/HCPCS: 36415; 36591; 51798; 71045; 76700; 80053; 80074; 80320; 80329; 82550; 82553; 83605; 83690; 83880; 84484; 85025; 85610; 85730; 86318; 87040; 93005; 93010; 96361; 96365; 96375; 99285; G0480; J1170; J2405; J2543

== ENCOUNTER → 2018-07-08 11:00 | Outpatient (CLI) | payer MEDICARE, OTHER, SELFPAY ==
[2018-07-08 12:07] LABS: Add Manual Diff / Slide Review NO; Basophils Absolute Auto 100 /uL (0-100); Eosinophils Absolute Auto 100 /uL (0-450); Eosinophils Percent Auto 2.2 % (2-4); Hematocrit 30.2 % (41-53); Hemoglobin 10.3 g/dL (13.5-17.5); Lymphocytes Absolute Auto 800 /uL (1100-4500); Lymphocytes Percent Auto 11.3 % (25-40); Mean Corpuscular Hemoglobin 31.5 PG (26-34); Mean Corpuscular Volume 92.5 fL (80-100); Monocytes Absolute Auto 800 /uL (0-900); Monocytes Percent Auto 11.3 % (3-14); Neutrophils Absolute Auto 5000 /uL (1500-7000); Neutrophils Percent Auto 74.2 % (50-75); Platelet Count 228 X10^3/uL (150-400); Red Blood Cell Count 3.27 X10^6/uL (4.5-5.9); Red Cell Distribution Width 14.2 % (11.6-14.8); White Blood Cell Count 6.7 X10^3/uL (4.5-11.0)
[2018-07-08 13:07] LABS: Alanine Aminotransferase 76 IU/L (21-72); Albumin 3.5 g/dL (3.5-5.0); Albumin Globulin Ratio 1.1 (1.0-2.8); Alkaline Phosphatase 137 U/L (38-126); Aspartate Aminotransferase 50 IU/L (17-59); BUN Creatinine Ratio 4.8 (6-22); Bilirubin Total 1.3 mg/dL (0.2-1.3); Blood Urea Nitrogen 29 mg/dL (9-20); Calcium 8.9 mg/dL (8.4-10.2); Carbon Dioxide 32 mmol/L (22-32); Chloride 93 mmol/L (98-107); Estimated Glomerular Filt Rate 9.4 mL/min (>60); Globulin 3.1 g/dL (1.7-4.1); Glucose 141 mg/dL (80-110); HEMOLYSIS < 15 (0-50); Potassium 3.8 mmol/L (3.4-5.1); Sodium 136 mmol/L (137-145); Total Protein 6.6 g/dL (6.3-8.2)
== END ==
PROVIDERS: PCP Internal Medicine; Visit Provider Internal Medicine
DX: N18.9 Chronic kidney disease, unspecified (principal); I25.10 Atherosclerotic heart disease of native coronary artery without angina pectoris; N17.9 Acute kidney failure, unspecified
CPT/HCPCS: 36415; 80053; 85025

== ENCOUNTER → 2018-07-15 14:00 | Outpatient (CLI) | payer MEDICARE, OTHER, SELFPAY ==
[2018-07-15 14:51] LABS: Add Manual Diff / Slide Review NO; Basophils Absolute Auto 0 /uL (0-100); Basophils Percent Auto 0.6 % (0-2); Eosinophils Absolute Auto 100 /uL (0-450); Eosinophils Percent Auto 1.4 % (2-4); Hemoglobin 11.4 g/dL (13.5-17.5); Lymphocytes Absolute Auto 1100 /uL (1100-4500); Mean Corpuscular HGB Conc 33.6 % (30-36); Mean Corpuscular Hemoglobin 31.2 PG (26-34); Mean Corpuscular Volume 92.6 fL (80-100); Monocytes Absolute Auto 600 /uL (0-900); Monocytes Percent Auto 9.7 % (3-14); Neutrophils Absolute Auto 4600 /uL (1500-7000); Neutrophils Percent Auto 71.3 % (50-75); Platelet Count 204 X10^3/uL (150-400); Red Blood Cell Count 3.67 X10^6/uL (4.5-5.9); Red Cell Distribution Width 14.1 % (11.6-14.8); White Blood Cell Count 6.4 X10^3/uL (4.5-11.0)
[2018-07-15 15:39] LABS: Alanine Aminotransferase 66 IU/L (21-72); Albumin 3.7 g/dL (3.5-5.0); Albumin Globulin Ratio 1.3 (1.0-2.8); Alkaline Phosphatase 153 U/L (38-126); Aspartate Aminotransferase 49 IU/L (17-59); Bilirubin Total 1.3 mg/dL (0.2-1.3); Blood Urea Nitrogen 28 mg/dL (9-20); Calcium 8.9 mg/dL (8.4-10.2); Carbon Dioxide 29 mmol/L (22-32); Chloride 94 mmol/L (98-107); Estimated Glomerular Filt Rate 22.6 mL/min (>60); Globulin 2.9 g/dL (1.7-4.1); Glucose 268 mg/dL (80-110); HEMOLYSIS < 15 (0-50); Potassium 4.2 mmol/L (3.4-5.1); Sodium 135 mmol/L (137-145); Total Protein 6.6 g/dL (6.3-8.2)
== END ==
PROVIDERS: PCP Internal Medicine; Visit Provider Internal Medicine
DX: N18.9 Chronic kidney disease, unspecified (principal); I25.10 Atherosclerotic heart disease of native coronary artery without angina pectoris; N17.9 Acute kidney failure, unspecified
CPT/HCPCS: 36415; 80053; 85025

== ENCOUNTER → 2018-07-23 08:51 | Outpatient (CLI) | payer MEDICARE, OTHER, SELFPAY ==
[2018-07-23 10:49] LABS: Alanine Aminotransferase 53 IU/L (21-72); Albumin 3.8 g/dL (3.5-5.0); Albumin Globulin Ratio 1.3 (1.0-2.8); Alkaline Phosphatase 146 U/L (38-126); Aspartate Aminotransferase 35 IU/L (17-59); BUN Creatinine Ratio 12.9 (6-22); Blood Urea Nitrogen 27 mg/dL (9-20); Calcium 9.7 mg/dL (8.4-10.2); Carbon Dioxide 28 mmol/L (22-32); Chloride 95 mmol/L (98-107); Estimated Glomerular Filt Rate 31.6 mL/min (>60); Glucose 378 mg/dL (80-110); HEMOLYSIS < 15 (0-50); Potassium 3.7 mmol/L (3.4-5.1); Sodium 135 mmol/L (137-145); Total Protein 6.8 g/dL (6.3-8.2)
== END ==
PROVIDERS: Family Provider Internal Medicine; PCP Internal Medicine; Visit Provider Internal Medicine Nephrology
DX: N18.9 Chronic kidney disease, unspecified (principal)
CPT/HCPCS: 36415; 80053

== ENCOUNTER → 2018-07-30 09:11 | Outpatient (CLI) | payer MEDICARE, OTHER, SELFPAY ==
[2018-07-30 10:29] LABS: Alanine Aminotransferase 44 IU/L (21-72); Albumin 3.7 g/dL (3.5-5.0); Albumin Globulin Ratio 1.4 (1.0-2.8); Alkaline Phosphatase 134 U/L (38-126); Aspartate Aminotransferase 25 IU/L (17-59); BUN Creatinine Ratio 17.5 (6-22); Bilirubin Total 1.1 mg/dL (0.2-1.3); Blood Urea Nitrogen 28 mg/dL (9-20); Calcium 9.6 mg/dL (8.4-10.2); Carbon Dioxide 20 mmol/L (22-32); Chloride 103 mmol/L (98-107); Estimated Glomerular Filt Rate 43.2 mL/min (>60); Globulin 2.7 g/dL (1.7-4.1); Glucose 317 mg/dL (80-110); HEMOLYSIS < 15 (0-50); Potassium 4.4 mmol/L (3.4-5.1); Sodium 136 mmol/L (137-145); Total Protein 6.4 g/dL (6.3-8.2); Uric Acid 6.9 mg/dL (3.5-8.5)
== END ==
PROVIDERS: Family Provider Internal Medicine; PCP Internal Medicine; Visit Provider Internal Medicine Nephrology
DX: N17.9 Acute kidney failure, unspecified (principal); E87.2 Acidosis
CPT/HCPCS: 36415; 80053; 84550

== ENCOUNTER → 2018-09-04 10:50 | Outpatient (CLI) | payer MEDICARE, OTHER, SELFPAY ==
[2018-09-04 12:04] LABS: Hematocrit 33.9 % (41-53); Hemoglobin 11.7 g/dL (13.5-17.5); Mean Corpuscular HGB Conc 34.4 % (30-36); Mean Corpuscular Hemoglobin 30.9 PG (26-34); Mean Corpuscular Volume 89.9 fL (80-100); Platelet Count 160 X10^3/uL (150-400); Red Blood Cell Count 3.77 X10^6/uL (4.5-5.9); Red Cell Distribution Width 14.4 % (11.6-14.8); White Blood Cell Count 4.7 X10^3/uL (4.5-11.0)
[2018-09-04 12:45] LABS: Alanine Aminotransferase 29 IU/L (21-72); Albumin 3.6 g/dL (3.5-5.0); Albumin Globulin Ratio 1.4 (1.0-2.8); Alkaline Phosphatase 89 U/L (38-126); Aspartate Aminotransferase 21 IU/L (17-59); Bilirubin Total 0.7 mg/dL (0.2-1.3); Blood Urea Nitrogen 21 mg/dL (9-20); Calcium 8.9 mg/dL (8.4-10.2); Carbon Dioxide 25 mmol/L (22-32); Chloride 101 mmol/L (98-107); Estimated Glomerular Filt Rate > 60.0 mL/min (>60); Globulin 2.5 g/dL (1.7-4.1); Glucose 199 mg/dL (80-110); HEMOLYSIS < 15 (0-50); Potassium 4.8 mmol/L (3.4-5.1); Sodium 137 mmol/L (137-145); Total Protein 6.1 g/dL (6.3-8.2)
== END ==
PROVIDERS: Family Provider Student in an Organized Health Care Education/Training Program; PCP Internal Medicine; Referring Provider Internal Medicine Nephrology; Visit Provider Internal Medicine
DX: E11.9 Type 2 diabetes mellitus without complications (principal); N18.9 Chronic kidney disease, unspecified; I12.9 Hypertensive chronic kidney disease with stage 1 through stage 4 chronic kidney disease, or unspecified chronic kidney disease
CPT/HCPCS: 36415; 80053; 83036; 85027

== ENCOUNTER 2018-09-27 16:01 | Inpatient (IN) | payer MEDICARE, OTHER, SELFPAY ==
[2018-09-27] VITALS (10 sets, daily range): BP systolic 151–200; BP diastolic 68–97; PULSE 60–71; RESP 16–26; TEMP 36.6–36.7; O2SAT 96–100; BMI 35.4
[2018-09-27 17:03] LABS: Add Manual Diff / Slide Review NO; Basophils Absolute Auto 0 /uL (0-100); Basophils Percent Auto 0.4 % (0-2); Eosinophils Absolute Auto 100 /uL (0-450); Eosinophils Percent Auto 0.7 % (2-4); Hematocrit 39.6 % (41-53); Hemoglobin 13.6 g/dL (13.5-17.5); Lymphocytes Absolute Auto 800 /uL (1100-4500); Lymphocytes Percent Auto 7.1 % (25-40); Mean Corpuscular HGB Conc 34.2 % (30-36); Mean Corpuscular Hemoglobin 31.2 PG (26-34); Mean Corpuscular Volume 91.3 fL (80-100); Monocytes Absolute Auto 400 /uL (0-900); Monocytes Percent Auto 3.6 % (3-14); Neutrophils Absolute Auto 9500 /uL (1500-7000); Neutrophils Percent Auto 88.2 % (50-75); Platelet Count 219 X10^3/uL (150-400); Red Blood Cell Count 4.34 X10^6/uL (4.5-5.9); Red Cell Distribution Width 15.2 % (11.6-14.8); White Blood Cell Count 10.7 X10^3/uL (4.5-11.0)
[2018-09-27] MEDS: ONDANSETRON 4 MG/2 ML INJ IV ×2 (17:07→19:00)
[2018-09-27] MEDS: SODIUM CHLORIDE 0.9% 1,000 ML 1000 ML IV (17:08)
[2018-09-27 17:11] LABS: INR 1.4 (0.9-1.3); Prothrombin Time 16.3 SECONDS (10.1-12.7)
[2018-09-27 17:14] LABS: PTT Partial Thromboplastin Tim 37 SECONDS (26.4-36.2)
[2018-09-27 17:16] LABS: Alanine Aminotransferase 21 IU/L (21-72); Albumin 4.5 g/dL (3.5-5.0); Albumin Globulin Ratio 1.4 (1.0-2.8); Alkaline Phosphatase 170 U/L (38-126); Aspartate Aminotransferase 27 IU/L (17-59); BUN Creatinine Ratio 18.9 (6-22); Bilirubin Total 1.2 mg/dL (0.2-1.3); Blood Urea Nitrogen 17 mg/dL (9-20); Calcium 10.2 mg/dL (8.4-10.2); Carbon Dioxide 26 mmol/L (22-32); Chloride 98 mmol/L (98-107); Estimated Glomerular Filt Rate > 60.0 mL/min (>60); Globulin 3.3 g/dL (1.7-4.1); Glucose 292 mg/dL (80-110); HEMOLYSIS 25 (0-50); Lipase 21 U/L (23-300); Potassium 4.3 mmol/L (3.4-5.1); Sodium 135 mmol/L (137-145); Total Protein 7.8 g/dL (6.3-8.2)
--- NOTE | 2018-09-27 17:40 | DI.RAD.S_ITS ---
PROCEDURE: XR ACUTE ABDOMEN SERIES INDICATIONS: abd pain, vomiting TECHNIQUE: One view chest and two views of the abdomen were acquired. COMPARISON: None. FINDINGS: Surgical changes and devices: Median sternotomy wires are seen. Surgical clips are noted in gallbladder fossa. Chest: Mild pulmonary vascular congestion is seen. Heart size is enlarged. No pleural effusions. No pneumoperitoneum. Abdomen: Air distended small bowel loops are noted throughout abdomen with multiple air-fluid levels. No suspicious calcifications. Visualized solid organ contours appear normal. Bones: No suspicious bony lesions. IMPRESSION: Finding is suggestive of distal small bowel obstruction. No gross free air. Cardiomegaly and mild congestion. Dictated by: Abraham Lane M.D. on 09/27/2018 at 18:17 Approved by: Abraham Lane M.D. on 09/27/2018 at 18:18
[2018-09-27] MEDS: PANTOPRAZOLE 40 MG VIAL IV (18:03)
--- NOTE | 2018-09-27 18:46 | DI.CT.S_ITS ---
PROCEDURE: CT ABDOMEN PELVIS W CON INDICATIONS: small bowel obstruction TECHNIQUE: After the administration of intravenous contrast, 5 mm thick sections acquired from the diaphragm to the symphysis. 5 mm coronal and sagittal reformats were acquired. For radiation dose reduction, the following was used: automated exposure control, adjustment of mA and/or kV according to patient size. COMPARISON: [facility], CR, XR ACUTE ABDOMEN SERIES, 09/27/2018, 17:46. FINDINGS: Image quality: Excellent. ABDOMEN: Lung bases: Bibasilar scarring/atelectasis is seen. Median sternotomy wires are noted. Heart size is enlarged, no pericardial effusion. Solid organs: Liver is normal in size and enhancement. Gallbladder is surgically absent. There is pneumobilia and mild intrahepatic biliary ductal dilatation. Prominence of common bile that is seen measures up to 1.5 cm in largest diameter. No calcified common bile duct stone is noted. Pancreas enhances normally. Spleen is normal in size and enhancement. No adrenal nodules. Kidneys demonstrate normal size and enhancement, without hydronephrosis. Peritoneum and bowel: Fluid distended small bowel loops throughout abdomen is seen measures up to 3.3 cm in diameter in right head of abdomen and up to 4 cm in diameter in left side of abdomen. No gross abnormal small bowel wall thickening. There is suggestion of focal zone of transition involving terminal ileum just proximal to ileocecal junction in right lower quadrant abdomen. There is suggestion of a short segment of ileal ileal intussusception seen just proximal to the narrowing of terminal ileum. Colon loops are decompressed. No peritoneal free fluid or free air. Nodes and vessels: No retroperitoneal or mesenteric adenopathy by size criteria. Aorta and inferior vena cava are normal in size. Miscellaneous: No ventral hernias. PELVIS: Genitourinary: Bladder wall thickness is normal. Enlarged prostate gland is seen with mild mass effect of floor of urinary bladder. Surgical clips are noted in the region of prostaglandin. Miscellaneous: No inguinal hernias or adenopathy. Bones: No suspicious bony lesions. No vertebral body compression fractures. IMPRESSION: #1. Finding is suggestive of moderate grade distal small bowel obstruction with zone of transition involving terminal ileum just proximal to ileocecal junction. Decompressed colon loops. #2. Suggestion of short segment distal ileal ileal stent intussusception in right lower quadrant abdomen just proximal to the transition zone. No gross abnormal bowel wall thickening. No free fluid or free air. #3. Prior cholecystectomy. Pneumobilia and mild dilated common bile measures up to 1.5 cm in diameter. No common bile but stone is seen. Dictated by: Abraham Lane M.D. on 09/27/2018 at 20:27 Approved by: Abraham Lane M.D. on 09/27/2018 at 20:36
[2018-09-27 19:22] LABS: Bacteria Urine None Seen
[2018-09-27 19:29] LABS: Culture Indicated Urine Cult Not Indicated; Mucus Urine 1+ (Negative); RBC Urine 0-1/HPF (0-5/HPF); WBC Urine 0-1/HPF (0-5/HPF)
[2018-09-27] MEDS: HYDROMORPHONE 0.5 MG INJ 1 MG IV (19:44)
--- NOTE | 2018-09-27 20:56 | ED_ITS ---
HPI - Abdominal Pain General Chief Complaint: Abdominal Pain Stated Complaint: STOMACH PAIN NAUSEA Time Seen by Provider: 09/27/18 16:17 Source: patient and family Mode of arrival: ambulatory Limitations: no limitations History of Present Illness HPI narrative: Patient comes emergency department complaining of upper abdominal pain nausea and vomiting since very early this morning. Patient also states he has had a little bit of diarrhea, but has passed no gas. Patient denies being exposed to anybody who is sick. He denies any chest symptoms--no shortness of breath, cough, or chest pain. Patient denies fevers. No dysuria. No back pain. No blood in his vomit or stool. Patient denies any history of bowel obstruction. He has a history of a lap ana and a very remote umbilical hernia repair. He was recently seen here in early June and transferred to [facility] in [place] for choledocholithiasis and ERCP. During the ERCP, his blood pressure did drop precipitously, resulting and acute tubular necrosis he. This did complicate his course, but since then, patient's kidney function has been normal. Patient denies any further liver issues. Related Data Home Medications Medication Instructions Recorded Confirmed One Touch Ultra Test Strips 12/14/17 09/02/18 insulin glargine 35 units SUBCUT BID 01/14/18 09/02/18 insulin aspart U-100 See Rx Instructions .ROUTE .COMPLEX 04/12/18 09/02/18 levothyroxine 112 mcg PO DAILY 04/12/18 09/27/18 lisinopril 40 mg PO DAILY 04/12/18 09/02/18 metformin 1,000 mg PO BID 04/12/18 09/27/18 Respironics Dreamstation CPAP #1 ea 09/02/18 09/02/18 carvedilol 25 mg tablet 25 mg PO DAILY #0 tab 09/02/18 09/27/18 metoprolol tartrate 50 tab PO BID 09/27/18 09/27/18 Allergies Allergy/AdvReac Type Severity Reaction Status Date / Time acetaminophen Allergy Severe ANAPHYLAXIS Verified 09/27/18 16:20 codeine Allergy Severe ANAPHYLAXIS Verified 09/27/18 16:20 silicone Allergy Severe Swelling, Verified 09/27/18 16:20 rash Review of Systems Constitutional Denies chills, Denies fever(s), Denies lethargy and Denies weakness Eyes Denies change in vision, Denies eye discharge, Denies irritation and Denies loss of vision ENT Ears, Nose, Mouth, and Throat: Denies change in voice, Denies neck pain and Denies sore throat Cardiovascular Denies chest pain, Denies irregular heart rhythm, Denies lightheadedness, Denies palpitations, Denies dyspnea, Denies dyspnea on exertion and Denies orthopnea Respiratory Denies cough, Denies dyspnea, Denies dyspnea on exertion and Denies wheezing Gastrointestinal Gastrointestinal: Reports abdominal pain, Denies change in bowel habits, Reports diarrhea, Reports nausea and Reports vomiting Genitourinary Denies hematuria, Denies flank pain, Denies urinary incontinence and Denies urinary urgency Musculoskeletal Denies neck pain Integumentary/Breasts Denies pruritus, Denies erythema, Denies rash and Denies wounds Neurologic Denies confusion, Denies loss of vision and Denies weakness Psychiatric Denies anxiety, Denies confusion, Denies depression, Denies homicidal ideation and Denies suicidal ideation Endocrine Denies palpitations Hematologic/Lymphatic Denies easy bruising Allergic/Immunologic Denies wheezing [facility] Medical History (Updated 09/27/18 @ 20:53 by Mamta Prieto MD) Obesity (BMI 30-39.9) (Chronic) Insomnia (Inactive) Sleep apnea (Chronic) Alcohol abuse (Chronic) Gout (Chronic) Hyperlipidemia (Chronic) Blindness of left eye (Chronic) Coronary artery disease (Chronic) Diabetes (Chronic) Prostate cancer (Chronic) Hypertension (Chronic) Surgical History (Updated 09/27/18 @ 20:53 by Mamta Prieto MD) H/O umbilical hernia repair (Acute) Hx laparoscopic cholecystectomy (Acute) History of coronary artery bypass graft x 2 (Resolved) History of laparoscopic cholecystectomy (Resolved) Hx of heart artery stent (Resolved) Hx of umbilical hernia repair (Resolved) Status post rotator cuff surgery (Resolved) Family History Father Hypertension Heart disease Mother Stroke Cancer Social History marital status: household members: spouse lives independently: Yes caregiver/support person: No occupational status: employed 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 Smoking Status: Former smoker alcohol intake: current substance use type: does not use Family History Father Hypertension Heart disease Mother Stroke Cancer Social History marital status: household members: spouse lives independently: Yes caregiver/support person: No occupational status: employed 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 Smoking Status: Former smoker alcohol intake: current substance use type: does not use Exam Initial Vital Signs Initial Vital Signs: Vital Signs Temperature 98.1 F 09/27/18 16:15 Pulse Rate 67 09/27/18 16:15 Respiratory Rate 20 09/27/18 16:15 Blood Pressure 167/91 H 09/27/18 16:15 Pulse Oximetry 99 09/27/18 16:15 Const General: cooperative and well developed Nutritional Appearance: well nourished Orientation: alert, awake, oriented x3 and not confused HENMT Head: normocephalic and atraumatic Ears: external ears normal Nose: external nose normal and No nasal discharge Face and sinus: face symmetric and No dry mucous membranes Mouth: oral mucosae normal and moist mucous membranes Teeth and gingiva: dentition normal Eyes General: appearance normal, both eyes and all related structures Eyelids: eyelids normal Conjunctivae: conjunctivae normal Sclera: sclerae normal Pupils: PERRL EOM: EOM intact bilaterally Neck Neck: normal visual inspection, trachea midline, No lymphadenopathy, No midline deformity and No JVD Lymphatic: No lymphedema Chest Chest: normal inspection of the chest Resp Effort & Inspection: normal respiratory effort, able to speak in complete sentences, no respiratory distress and no use of accessory muscles Auscultation: clear to auscultation bilaterally, no rales, no rhonchi and no wheezes Cardio Rate: regular rate Rhythm: regular rhythm Heart Sounds: no click, no gallops, no murmurs and no rubs Pulses: normal peripheral pulses GI Inspection: non-distended Palpation: soft, no hepatosplenomegaly, No guarding, No pulsatile mass and tender (Mild, diffuse) Back/Spine/Pelvis Back: No CVA tenderness Cervical Spine: cervical ROM normal and No pain with cervical ROM Thoracic/Lumbar Spine: thoracic and lumbar spine normal to inspection Skin General: no rashes or lesions noted, No jaundice and No petechiae Neuro General: alert, oriented x3, gait normal and no focal motor deficits Speech: speech normal Extrem General: full ROM, no clubbing, cyanosis or edema, no pedal edema and no calf tenderness Psych Appearance: well kempt Mental Status: mental status grossly normal Attitude: cooperative Thought Content: normal and suicidality Judgment: judgment good Course Course Narrative: Patient was treated symptomatically with IV fluids and Zofran, and worked up with an acute abdominal x-ray series. This did show a small bowel obstruction. I spoke with Dr. Herndon of surgery, who stated that he would be happy to consult on this patient, but requested hospitalist admission. He also requested a CT abdomen and pelvis with IV and oral contrast, if possible. I did speak to hospitalist Edna Ezequiel Soto, who did agree to admit the patient to his service. I spoke with the patient regarding his condition and need for admission, as well as the need for NG tube and CT with drinking of contrast. Patient did agree to try to drink contrast, as his nausea was a little better than before. Patient's labs reveal normal liver labs except for a modestly elevated alkaline phosphatase. Patient's white blood cell count was also normal, and his lipase was not elevated. Orders Ordered: ED Orders 09/27/18 16:34 EKG-12 Lead Stat 09/27/18 16:50 Complete Blood Count AUTO DIFF Stat Comprehensive Metabolic Panel Stat Lipase Stat Partial Thromboplastin Time Stat Prothrombin Time INR Stat 09/27/18 17:40 XR acute abdomen series Stat 09/27/18 18:43 Urine Microscopic Stat 09/27/18 18:46 CT abdomen pelvis w con Stat Discontinued Medications Hydromorphone HCl (Dilaudid) 1 mg IV NOW ONE Stop: 09/27/18 19:26 Last Admin: 09/27/18 19:44 Dose: 1 mg Sodium Chloride (Normal Saline 0.9%) 1,000 mls @ 1,000 mls/hr IV BOLUS ONE Stop: 09/27/18 17:53 Last Infusion: 09/27/18 19:48 Dose: 0 mls/hr Admin: 09/27/18 17:08 Dose: 1,000 mls/hr Ondansetron HCl (Zofran) 4 mg IV NOW ONE Stop: 09/27/18 16:54 Last Admin: 09/27/18 17:07 Dose: 4 mg Ondansetron HCl (Zofran) 4 mg IV NOW ONE Stop: 09/27/18 18:53 Last Admin: 09/27/18 19:00 Dose: 4 mg Pantoprazole Sodium (Protonix) 40 mg IV NOW ONE Stop: 09/27/18 17:42 Last Admin: 09/27/18 18:03 Dose: 40 mg Vital Signs - 8 hr 09/27/18 16:15 09/27/18 17:02 09/27/18 18:40 Temperature 98.1 F Pulse Rate 67 66 71 Respiratory Rate 20 16 21 Blood Pressure 167/91 H Blood Pressure [Left Arm] 200/97 H 180/87 H Pulse Oximetry 99 99 100 09/27/18 19:00 09/27/18 20:08 Temperature Pulse Rate 69 63 Respiratory Rate 26 H 21 Blood Pressure Blood Pressure [Left Arm] 195/83 H 171/93 H Pulse Oximetry 97 99 MDM - Abdominal Pain Medical Records Attestation: I reviewed the patient's medical records. Lab Data Attestation: I reviewed the patient's lab results. Result diagrams: 09/27/18 16:50 09/27/18 16:50 Lab Results 09/27/18 09/27/18 09/27/18 Range/Units 16:50 16:50 16:50 WBC 10.7 (4.5-11.0) X10^3/uL RBC 4.34 L (4.5-5.9) X10^6/uL Hgb 13.6 (13.5-17.5) g/dL Hct 39.6 L (41-53) % MCV 91.3 (80-100) fL MCH 31.2 (26-34) PG MCHC 34.2 (30-36) % RDW 15.2 H (11.6-14.8) % Plt Count 219 (150-400) X10^3/uL Neut % (Auto) 88.2 H (50-75) % Lymph % (Auto) 7.1 L (25-40) % [place] % (Auto) 3.6 (3-14) % Eos % (Auto) 0.7 L (2-4) % Baso % (Auto) 0.4 (0-2) % Neut # (Auto) 9500 H (3353-1007) /uL Lymph # (Auto) 800 L (8206-5106) /uL [place] # (Auto) 400 (0-900) /uL Eos # (Auto) 100 (0-450) /uL Baso # (Auto) 0 (0-100) /uL PT 16.3 H (10.1-12.7) SECONDS INR 1.4 H (0.9-1.3) APTT 37 H D (26.4-36.2) SECONDS Sodium 135 L (137-145) mmol/L Potassium 4.3 (3.4-5.1) mmol/L Chloride 98 (98-107) mmol/L Carbon Dioxide 26 (22-32) mmol/L BUN 17 (9-20) mg/dL Creatinine 0.90 (0.66-1.25) mg/dL Estimated GFR > 60.0 (>60) mL/min BUN/Creatinine Ratio 18.9 (6-22) Glucose 292 H (80-110) mg/dL Calcium 10.2 (8.4-10.2) mg/dL Total Bilirubin 1.2 (0.2-1.3) mg/dL AST 27 (17-59) IU/L ALT 21 (21-72) IU/L Alkaline Phosphatase 170 H (38-126) U/L Total Protein 7.8 (6.3-8.2) g/dL Albumin 4.5 (3.5-5.0) g/dL Globulin 3.3 (1.7-4.1) g/dL Albumin/Globulin Ratio 1.4 (1.0-2.8) Lipase 21 L (23-300) U/L Urine RBC (0-5/HPF) Urine WBC (0-5/HPF) Urine Bacteria (None) Urine Mucus (Negative) Ur Culture Indicated? 09/27/18 Range/Units 18:43 WBC (4.5-11.0) X10^3/uL RBC (4.5-5.9) X10^6/uL Hgb (13.5-17.5) g/dL Hct (41-53) % MCV (80-100) fL MCH (26-34) PG MCHC (30-36) % RDW (11.6-14.8) % Plt Count (150-400) X10^3/uL Neut % (Auto) (50-75) % Lymph % (Auto) (25-40) % [place] % (Auto) (3-14) % Eos % (Auto) (2-4) % Baso % (Auto) (0-2) % Neut # (Auto) (0174-3062) /uL Lymph # (Auto) (4854-9379) /uL Jasper # (Auto) (0-900) /uL Eos # (Auto) (0-450) /uL Baso # (Auto) (0-100) /uL PT (10.1-12.7) SECONDS INR (0.9-1.3) APTT (26.4-36.2) SECONDS Sodium (137-145) mmol/L Potassium (3.4-5.1) mmol/L Chloride (98-107) mmol/L Carbon Dioxide (22-32) mmol/L BUN (9-20) mg/dL Creatinine (0.66-1.25) mg/dL Estimated GFR (>60) mL/min BUN/Creatinine Ratio (6-22) Glucose (80-110) mg/dL Calcium (8.4-10.2) mg/dL Total Bilirubin (0.2-1.3) mg/dL AST (17-59) IU/L ALT (21-72) IU/L Alkaline Phosphatase (38-126) U/L Total Protein (6.3-8.2) g/dL Albumin (3.5-5.0) g/dL Globulin (1.7-4.1) g/dL Albumin/Globulin Ratio (1.0-2.8) Lipase (23-300) U/L Urine RBC 0-1/hpf (0-5/HPF) Urine WBC 0-1/hpf (0-5/HPF) Urine Bacteria None seen (None) Urine Mucus 1+ H (Negative) Ur Culture Indicated? Cult not indicated Point of care testing: Urine Dip Bedside Urine Glucose 1000 mg/dl Bedside Urine Bilirubin - Negative Bedside Urine Ketone ++ 40 Urine Specific [place] 1.015 Bedside Urine Occult Blood - Negative Bedside Urine pH 8.0 Bedside Urine Protein + 30 Bedside Urine Urobilinogen +/- 1mg Bedside Urine Nitrite - Negative Bedside Urine Leukocytes - Negative Esterase Imaging Data CT scan - abdomen: Radiologist's impression: PROCEDURE: CT ABDOMEN PELVIS W CON INDICATIONS: small bowel obstruction TECHNIQUE: After the administration of intravenous contrast, 5 mm thick sections acquired from the diaphragm to the symphysis. 5 mm coronal and sagittal reformats were acquired. For radiation dose reduction, the following was used: automated exposure control, adjustment of mA and/or kV according to patient size. COMPARISON: [facility], CR, XR ACUTE ABDOMEN SERIES, 09/27/2018, 17:46. FINDINGS: Image quality: Excellent. ABDOMEN: Lung bases: Bibasilar scarring/atelectasis is seen. Median sternotomy wires are noted. Heart size is enlarged, no pericardial effusion. Solid organs: Liver is normal in size and enhancement. Gallbladder is surgically absent. There is pneumobilia and mild intrahepatic biliary ductal dilatation. Prominence of common bile that is seen measures up to 1.5 cm in largest diameter. No calcified common bile duct stone is noted. Pancreas enhances normally. Spleen is normal in size and enhancement. No adrenal nodules. Kidneys demonstrate normal size and enhancement, without hydronephrosis. Peritoneum and bowel: Fluid distended small bowel loops throughout abdomen is seen measures up to 3.3 cm in diameter in right head of abdomen and up to 4 cm in diameter in left side of abdomen. No gross abnormal small bowel wall thickening. There is suggestion of focal zone of transition involving terminal ileum just proximal to ileocecal junction in right lower quadrant abdomen. There is suggestion of a short segment of ileal ileal intussusception seen just proximal to the narrowing of terminal ileum. Colon l oops are decompressed. No peritoneal free fluid or free air. Nodes and vessels: No retroperitoneal or mesenteric adenopathy by size criteria. Aorta and inferior vena cava are normal in size. Miscellaneous: No ventral hernias. PELVIS: Genitourinary: Bladder wall thickness is normal. Enlarged prostate gland is seen with mild mass effect of floor of urinary bladder. Surgical clips are noted in the region of prostaglandin. Miscellaneous: No inguinal hernias or adenopathy. Bones: No suspicious bony lesions. No vertebral body compression fractures. IMPRESSION: #1. Finding is suggestive of moderate grade distal small bowel obstruction with zone of transition involving terminal ileum just proximal to ileocecal junction. Decompressed colon loops. #2. Suggestion of short segment distal ileal ileal stent intussusception in right lower quadrant abdomen just proximal to the transition zone. No gross abnormal bowel wall thickening. No free fluid or free air. #3. Prior cholecystectomy. Pneumobilia and mild dilated common bile measures up to 1.5 cm in diameter. No common bile but stone is seen. Dictated by: Abraham Lane M.D. on 09/27/2018 at 20:27 Approved by: Abrahma Lane M.D. on 09/27/2018 at 20:36 Abdominal x-ray: Attestation: I personally reviewed and interpreted this imaging study as follows: My impression: Small-bowel obstruction Radiologist's impression: PROCEDURE: XR ACUTE ABDOMEN SERIES INDICATIONS: abd pain, vomiting TECHNIQUE: One view chest and two views of the abdomen were acquired. COMPARISON: None. FINDINGS: Surgical changes and devices: Median sternotomy wires are seen. Surgical clips are noted in gallbladder fossa. Chest: Mild pulmonary vascular congestion is seen. Heart size is enlarged. No pleural effusions. No pneumoperitoneum. Abdomen: Air distended small bowel loops are noted throughout abdomen with multiple air-fluid levels. No suspicious calcifications. Visualized solid organ contours appear normal. Bones: No suspicious bony lesions. IMPRESSION: Finding is suggestive of distal small bowel obstruction. No gross free air. Cardiomegaly and mild congestion. Dictated by: Abraham Lane M.D. on 09/27/2018 at 18:17 Approved by: Abraham Lane M.D. on 09/27/2018 at 18:18 Discharge Plan Departure Patient Disposition: Admitted As Inpatient Clinical Impression: SBO (small bowel obstruction) Admit Date/Time: 09/27/18 19:18 Admit Provider: Herberth Soto
--- NOTE | 2018-09-27 20:57 | PM.HP.1 ---
History of Present Illness Date Patient Seen: 09/27/18 Time Patient Seen: 19:44 Chief complaint: STOMACH PAIN NAUSEA Narrative: Mr. Giovani Lowery is a 68-year-old male patient with history significant for coronary artery disease status post stenting and CABG by 2, insulin dependent diabetes type 2, hypertension, gastric ulcer and obstructive sleep on CPAP who presents to the ER with abdominal pain with nausea and vomiting. The patient states that he woke in the early hours of the morning with abdominal pain and nausea but no vomiting. He states he tolerated a small breakfast this morning without worsening of symptoms. He reports that this afternoon his pain was worsening and believed was related to his previous gastric ulcer and had a milkshake were on his pain became worse and he had vomiting prompting him to present to the ER for evaluation. Patient did have an admission to [facility] from June 19 to June 30 for acute hepatitis during which time he developed acute kidney injury and and also treated with dialysis that was continued for 3-4 weeks post discharge with resolution of his symptoms. He reports no prodromal symptoms and has had no recent cold or illness, fevers or chills, chest pain or palpitations. He denies complaints of shortness of breath coughing or wheezing. He has had dominant pain and nausea vomiting as described above but none prior to this event. He reports noted changes in bowel habits and reports no dysuria or nocturia. Upon arrival in the ER the patient was afebrile with a temperature of 98.1? with a heart rate of 67, blood pressure 167/91 and respiratory rate of 20 saturating 99% on room air. In the ER the patient received IV fluid and Zofran. Abdominal film identify suggestion of small bowel obstruction large cardiac silhouette and pulmonary vascular congestion. EKG was obtained which finds sinus rhythm without ectopy ST or T-wave changes. He does have Q-waves in the inferior leads indicative of old infarct. General surgery was contacted and Dr. Herndon requests an abdominal CT with oral contrast. On laboratory analysis the patient has a normal white count of 10.7 with an elevated neutrophil percentage 80.2. He has of hemoglobin had a crit of 13.6 and 39.6 respectively and platelets of 219. His electrolytes are within normal limits with good renal function with BUN of 17 and creatinine 0.9. The patient's total bilirubin is 1.2 with an AST of 27, ALT of 21 and alk-phos of 170. His lipase is 21. He does have mildly elevated PT at 16.3 with INR 0.4. His blood sugar today is 292 and has had a recent hemoglobin A1c completed on 09/04/2018 found to be 9.0. Abdominal CT head findings significant for moderate distal small-bowel obstruction with zone of transmission the terminal ileum proximal to the ileocecal valve. CC scan also finds suggestion of short-segment ileal ileal intussusception. Patient has had an NG-tube placed and is admitted to the acute medical surgical floor for small-bowel obstruction. Patient History Medical History (Updated 09/28/18 @ 04:28 by ALICIA Wills) Obesity (BMI 30-39.9) (Chronic) Insomnia (Inactive) Sleep apnea (Chronic) Alcohol abuse (Chronic) Gout (Chronic) Hyperlipidemia (Chronic) Blindness of left eye (Chronic) Coronary artery disease (Chronic) Diabetes (Chronic) Prostate cancer (Chronic) Hypertension (Chronic) Surgical History H/O umbilical hernia repair (Acute) Hx laparoscopic cholecystectomy (Acute) History of coronary artery bypass graft x 2 (Resolved) History of laparoscopic cholecystectomy (Resolved) Hx of heart artery stent (Resolved) Hx of umbilical hernia repair (Resolved) Status post rotator cuff surgery (Resolved) Family History Father Hypertension Heart disease Mother Stroke Cancer Social History marital status: household members: spouse lives independently: Yes caregiver/support person: No occupational status: employed 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 Smoking Status: Former smoker alcohol intake: current substance use type: does not use Family & Social History Family History Father Hypertension Heart disease Mother Stroke Cancer Social History: household members spouse lives independently Yes caregiver/support person No Safety & Behavioral: Feels Safe in Current Yes Environment Been Physically Hurt or No Threatened By a Person Tobacco & Substance use: Smoking Status Former smoker alcohol intake current alcohol intake frequency 3 or more drinks per day Substance Use Type does not use Comment: The patient lives in a single family home with his . He has a family history of heart disease and hypertension with his mother sustaining a stroke and also had breast cancer. Advanced directives: Indirect discussion with the patient wishes to be FULL CODE. Designates his to be his surrogate decision maker. Meds Home Medications Medication Instructions Recorded Confirmed Type One Touch Ultra Test Strips 12/14/17 09/02/18 History insulin aspart U-100 See Rx Instructions .ROUTE .COMPLEX 04/12/18 09/02/18 History levothyroxine 112 mcg PO DAILY 04/12/18 09/27/18 History metformin 1,000 mg PO BID 04/12/18 09/27/18 History Respironics Dreamstation CPAP #1 ea 09/02/18 09/02/18 History carvedilol 25 mg tablet 25 mg PO DAILY #0 tab 09/02/18 09/27/18 History allopurinol 100 mg PO DAILY PRN 09/27/18 09/27/18 History amlodipine 5 mg PO DAILY 09/27/18 09/27/18 History insulin glargine [Basaglar KwikPen 30 units SUBCUT BID 09/27/18 09/27/18 History U-100 Insulin] metoprolol tartrate 50 tab PO BID 09/27/18 09/27/18 History Allergies Allergy/AdvReac Type Severity Reaction Status Date / Time acetaminophen Allergy Severe ANAPHYLAXIS Verified 09/27/18 16:20 codeine Allergy Severe ANAPHYLAXIS Verified 09/27/18 16:20 silicone Allergy Severe Swelling, Verified 09/27/18 16:20 rash Review of Systems Review of Systems All systems reviewed & are unremarkable except as noted in HPI and below Exam Vital Signs (past 8 hours): - 09/27/18 16:15 09/27/18 17:02 09/27/18 18:40 Temperature 98.1 F Pulse Rate 67 66 71 Respiratory Rate 20 16 21 Blood Pressure 167/91 H Blood Pressure [Left Arm] 200/97 H 180/87 H Pulse Oximetry 99 99 100 09/27/18 19:00 09/27/18 20:08 Temperature Pulse Rate 69 63 Respiratory Rate 26 H 21 Blood Pressure Blood Pressure [Left Arm] 195/83 H 171/93 H Pulse Oximetry 97 99 Oxygen Delivery Method Room Air Narrative Exam Narrative: GENERAL APPEARANCE: well developed, well nourished, afebrile, in mild discomfort. HEAD: Normocephalic, atraumatic, no scalp lesions. EYES: pupils equal, round, reactive to light and accommodation, sclera non-icteric, extraocular movement intact without nystagmus. EARS: normal external structures, no ear pain NOSE: sinuses non tender to percussion, no rhinorrhea ORAL CAVITY: mucosa moist without lesions or exudate, palate normal, tongue in midline. THROAT: normal, no erythema, no exudate, pharynx normal, uvula midline. NECK/THYROID: neck supple, no jugular venous distention, no carotid bruit, no thyromegaly, trachea midline. LYMPH NODES: no cervical or supraclavicular lymphadenopathy. SKIN: warm and dry, no suspicious lesions, no rashes, good turgor. HEART: regular rate and rhythm, S1-S2 without murmur, no rubs or gallops, brisk capillary refill, trace right pedal edema, 1+ left pedal edema. LUNGS: Diminished but clear to auscultation bilaterally, no coarseness crackles or wheezing, no cough present CHEST: Symmetrical movement, no accessory muscle use, no pain to AP and lateral compression. ABDOMEN: Firm and distended, generalized tenderness on palpation without localization, exam confounded by recent pain medication, no guarding or peritoneal signs, no organomegaly, no flank tenderness, hypoactive bowel tones. BACK: Normal curvature, nontender to palpation, no CVA tenderness on percussion EXTREMITIES: moves all extremities, strength is 5/5 and symmetrical NEUROLOGIC: AAO x4, no focal neurologic deficits, cranial nerves II-XII grossly intact , motor strength normal upper and lower extremities, decreased sensation to light on filament touch bilateral fore foot, hearing grossly normal to speech. PSYCH: alert, cognitive function intact, good eye contact, stable mood with congruent affect Objective Labs Result Diagrams: 09/27/18 16:50 09/27/18 16:50 Labs: Laboratory Results - last 24 hr 09/27/18 09/27/18 09/27/18 16:50 16:50 16:50 WBC 10.7 RBC 4.34 L Hgb 13.6 Hct 39.6 L MCV 91.3 MCH 31.2 MCHC 34.2 RDW 15.2 H Plt Count 219 Neut % (Auto) 88.2 H Lymph % (Auto) 7.1 L [place] % (Auto) 3.6 Eos % (Auto) 0.7 L Baso % (Auto) 0.4 Neut # (Auto) 9500 H Lymph # (Auto) 800 L [place] # (Auto) 400 Eos # (Auto) 100 Baso # (Auto) 0 PT 16.3 H INR 1.4 H APTT 37 H D Sodium 135 L Potassium 4.3 Chloride 98 Carbon Dioxide 26 BUN 17 Creatinine 0.90 Estimated GFR > 60.0 BUN/Creatinine Ratio 18.9 Glucose 292 H Calcium 10.2 Total Bilirubin 1.2 AST 27 ALT 21 Alkaline Phosphatase 170 H Total Protein 7.8 Albumin 4.5 Globulin 3.3 Albumin/Globulin Ratio 1.4 Lipase 21 L Urine RBC Urine WBC Urine Bacteria Urine Mucus Ur Culture Indicated? 09/27/18 18:43 WBC RBC Hgb Hct MCV MCH MCHC RDW Plt Count Neut % (Auto) Lymph % (Auto) [place] % (Auto) Eos % (Auto) Baso % (Auto) Neut # (Auto) Lymph # (Auto) [place] # (Auto) Eos # (Auto) Baso # (Auto) PT INR APTT Sodium Potassium Chloride Carbon Dioxide BUN Creatinine Estimated GFR BUN/Creatinine Ratio Glucose Calcium Total Bilirubin AST ALT Alkaline Phosphatase Total Protein Albumin Globulin Albumin/Globulin Ratio Lipase Urine RBC 0-1/hpf Urine WBC 0-1/hpf Urine Bacteria None seen Urine Mucus 1+ H Ur Culture Indicated? Cult not indicated Assessment & Plan Assessment & Plan narrative: This is a 68-year-old male patient who is admitted to the hospital for acute onset of abdominal pain with findings of some small-bowel obstruction with intussusception on CT scan. Called and spoke with Dr. Herndon regarding CT findings and updated on patient's status noting stable vital signs afebrile however patient is diabetic altering pain perception. Patient is believed to be stable at this time and will notify Dr. Herndon of further changes in condition. 1. Acute Small bowel obstruction, present on arrival. -patient with the onset of abdominal pain earlier in the morning with associated nausea. Patient was able to tolerate food in the morning however became symptomatic with vomiting with oral intake in the afternoon. -abdominal x-ray finds suggestion of small bowel obstruction, abdominal CT with contrast find some bowel bowel obstruction with transition in the terminal ileum proximal to the ileocecal valve. It also notes ileo ileal intussusception. Results are discussed with Dr. Herndon. -no evidence of sepsis with white count of 10.7, patient is afebrile a temperature 98.1?, no hypotension in fact patient is hypertensive and has stable renal function. -NG tube is placed and connected to low intermittent wall suction. -patient is NPO, prior history of gastric ulcer, pantoprazole 40 mg daily. -patient with pulmonary vascular congestion noted on imaging with enlarged cardiac silhouette, will hydrate normal saline 100 cc/hour. 2. Chronic hypertension, active -patient's hypertensive upon arrival with blood pressure 167/91. No complaints of headache chest pain or shortness of breath. -oral antihypertensives are held - metoprolol 5 mg IV every 6 hours. Will monitor blood pressures. 3. Insulin-dependent diabetes, type 2, uncontrolled -patient with a blood sugar 292 upon arrival. -hemoglobin A1c on 09/04/2018 was 9.0. This was affected by prior hospitalization or antihypertensive were discontinue related to renal failure resulting a markedly elevated blood sugars. -patient is typically on Basaglar insulin 30 units twice daily. -fingerstick blood sugars every 6 hours while NPO -correctional insulin medium range sliding scale. 4. Chronic Coronary artery disease, stable -no complaints of chest pain or shortness of breath. -EKG reveals sinus rhythm without ST or T-wave changes and has inferior Q-waves present. -patient is NPO, will continue beta-china therapy with metoprolol 5 mg every 6 hours and titrate as necessary. 5. Chronic obstructive sleep apnea, on CPAP, stable -respiratory therapy to consult and treat -CPAP per protocol with patient using own machine. 6. History of gout, stable -patient endorse history of multiple drinks daily, no current use of diuretics -no evidence of gout or joint pain -patient has taken allopurinol 100 mg which is presently on hold per the patient in discussion with his primary care provider. Patient is admitted to the hospital due to the severity of his complaints and risk for complications and adverse events. Patient admitted as an inpatient with surgical consult with expected length of stay to be greater than 2 midnights.
[2018-09-27] MEDS: SODIUM CHLORIDE 0.9% 1,000 ML 100 ML IV (21:33)
[2018-09-27 21:35] LABS: Magnesium 1.8 mg/dL (1.6-2.3)
[2018-09-27] MEDS: HEPARIN 5,000 UNIT/ML VIAL 5000 UNIT SUBCUT (22:03)
[2018-09-27] MEDS: INSULIN ASPART 100 UNIT/ML INSULN PEN SUBCUT (22:03)
[2018-09-27] MEDS: METOPROLOL TARTRATE 5 MG/5 ML INJ IV (22:03)
--- NOTE | 2018-09-27 22:49 | PC.ADMIT ---
1119 [facility] Admission Note: The patient,Giovani Lowery,68 y/o, was given written information regarding hospital policies, unit procedures and contact persons. Patient's smoking status: Former smoker. Vital Signs - 8 hr 09/27/18 16:15 09/27/18 17:02 09/27/18 18:40 Temperature 98.1 F Pulse Rate 67 66 71 Respiratory Rate 20 16 21 Blood Pressure 167/91 H Blood Pressure [Left Arm] 200/97 H 180/87 H Pulse Oximetry 99 99 100 09/27/18 19:00 09/27/18 20:08 09/27/18 20:45 Temperature 98 F Pulse Rate 69 63 67 Respiratory Rate 26 H 21 17 Blood Pressure 170/75 H Blood Pressure [Left Arm] 195/83 H 171/93 H Pulse Oximetry 97 99 96 09/27/18 21:40 09/27/18 21:48 09/27/18 22:16 Temperature Pulse Rate 70 60 Respiratory Rate 20 Blood Pressure 151/68 H Blood Pressure [Left Arm] Pulse Oximetry 96 98 Awake, alert, and pleasant. Ambulated independently in room upon arrival to ED and voided. NGT secured and initiated low intermittent suction as ordered. No C/O pain or nausea. RT at bedside to set up home CPAP. Abdomen distended, firm, round, tender, with active BS. States abdomen is much less firm than arrival to ER and less tender. 2+ edema to BLE, present on admission. Oreinted to room, environment, and plan of care. Call light within reach. Charles VARGAS at bedside.
[2018-09-28] VITALS (21 sets, daily range): BP systolic 119–180; BP diastolic 52–79; PULSE 56–77; RESP 9–19; TEMP 36–37.1; O2SAT 93–98; BMI 35.4
[2018-09-28] MEDS: INSULIN ASPART 100 UNIT/ML INSULN PEN SUBCUT ×4 (02:28→21:55)
[2018-09-28] MEDS: METOPROLOL TARTRATE 5 MG/5 ML INJ IV ×2 (02:29→21:53)
[2018-09-28 05:33] LABS: Add Manual Diff / Slide Review NO; Basophils Absolute Auto 0 /uL (0-100); Basophils Percent Auto 0.2 % (0-2); Eosinophils Absolute Auto 100 /uL (0-450); Hematocrit 33.8 % (41-53); Hemoglobin 11.7 g/dL (13.5-17.5); Lymphocytes Absolute Auto 900 /uL (1100-4500); Lymphocytes Percent Auto 12.6 % (25-40); Mean Corpuscular HGB Conc 34.8 % (30-36); Mean Corpuscular Hemoglobin 31.6 PG (26-34); Monocytes Absolute Auto 500 /uL (0-900); Monocytes Percent Auto 7.2 % (3-14); Neutrophils Absolute Auto 5800 /uL (1500-7000); Platelet Count 173 X10^3/uL (150-400); Red Blood Cell Count 3.71 X10^6/uL (4.5-5.9); Red Cell Distribution Width 15.1 % (11.6-14.8); White Blood Cell Count 7.3 X10^3/uL (4.5-11.0)
[2018-09-28 05:42] LABS: BUN Creatinine Ratio 18.9 (6-22); Blood Urea Nitrogen 17 mg/dL (9-20); Calcium 8.8 mg/dL (8.4-10.2); Carbon Dioxide 30 mmol/L (22-32); Chloride 101 mmol/L (98-107); Cholesterol 142 mg/dL (140-199); Estimated Glomerular Filt Rate > 60.0 mL/min (>60); Glucose 190 mg/dL (80-110); HDL Cholesterol 34 mg/dL (40-60); HEMOLYSIS < 15 (0-50); LDL Cholesterol Calculated 81 mg/dL (<100); Potassium 3.8 mmol/L (3.4-5.1); Sodium 136 mmol/L (137-145); Triglycerides 135 mg/dL (35-150)
[2018-09-28] MEDS: SODIUM CHLORIDE 0.9% 1,000 ML 100 ML IV (05:47)
[2018-09-28] MEDS: ONDANSETRON 4 MG/2 ML INJ IV ×2 (05:47→17:27)
--- NOTE | 2018-09-28 06:54 | DI.RAD.S_ITS ---
PROCEDURE: XR ACUTE ABDOMEN SERIES INDICATIONS: sbo TECHNIQUE: One view chest and two views of the abdomen were acquired. COMPARISON: [facility], , XR ACUTE ABDOMEN SERIES, 09/27/2018, 17:46. FINDINGS: Surgical changes and devices: Median sternotomy wires are seen. Possible enteric tube tip is seen in the region of distal esophagus/most proximal gastric lumen. Surgical clips are seen in right upper quadrant abdomen. Chest: No pulmonary vascular congestion is seen. Heart size is enlarged. No pleural effusions. No pneumoperitoneum. Abdomen: Multiple air distended bowel loops are again seen throughout abdomen with a few air-fluid levels no significantly changed from previous and is concerning for distal small bowel obstruction. No suspicious calcifications. Visualized solid organ contours appear normal. Bones: No suspicious bony lesions. IMPRESSION: Findings consistent with distal small bowel obstruction not significantly changed from previous day. No gross free air. Possible NG tube tip in distal esophagus/most proximal stomach lumen. Dictated by: Abraham Lane M.D. on 09/28/2018 at 8:24 Approved by: Abraham Lane M.D. on 09/28/2018 at 8:31
--- NOTE | 2018-09-28 09:17 | P.CONS_ITS ---
History of Present Illness Date Patient Seen: 09/28/18 Time Patient Seen: 09:11 Chief complaint: STOMACH PAIN NAUSEA Reason for consult: SBO Narrative: 68-year-old white male with sudden onset of abdominal pain and vomiting yesterday. Came to the emergency department where he had plain films consistent with small-bowel obstruction. After discussion with the emergency room physician we did a CT scan which is consistent with an ileal ileal intussusception. Nasogastric decompression was instituted at that point and overnight he has produced about 300 cc of fecal material from the NG tube. Patient is not complaining of severe pain anymore. Plain abdominal x-rays again this morning repeated show no significant change in the bowel obstruction pattern with copious air fluid levels throughout the small bowel, and no gas in the colon. [facility] Medical History Obesity (BMI 30-39.9) (Chronic) Insomnia (Inactive) Sleep apnea (Chronic) Alcohol abuse (Chronic) Gout (Chronic) Hyperlipidemia (Chronic) Blindness of left eye (Chronic) Coronary artery disease (Chronic) Diabetes (Chronic) Prostate cancer (Chronic) Hypertension (Chronic) Surgical History H/O umbilical hernia repair (Acute) Hx laparoscopic cholecystectomy (Acute) History of coronary artery bypass graft x 2 (Resolved) History of laparoscopic cholecystectomy (Resolved) Hx of heart artery stent (Resolved) Hx of umbilical hernia repair (Resolved) Status post rotator cuff surgery (Resolved) Family History Father Hypertension Heart disease Mother Stroke Cancer Social History marital status: household members: spouse lives independently: Yes caregiver/support person: No occupational status: employed 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 Smoking Status: Former smoker alcohol intake: current substance use type: does not use Family History Father Hypertension Heart disease Mother Stroke Cancer Social History marital status: household members: spouse lives independently: Yes caregiver/support person: No occupational status: employed 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 Smoking Status: Former smoker alcohol intake: current substance use type: does not use Meds Home Medications Medication Instructions Recorded Confirmed Type One Touch Ultra Test Strips 12/14/17 09/02/18 History insulin aspart U-100 See Rx Instructions .ROUTE .COMPLEX 04/12/18 09/02/18 History levothyroxine 112 mcg PO DAILY 04/12/18 09/27/18 History metformin 1,000 mg PO BID 04/12/18 09/27/18 History Respironics Dreamstation CPAP #1 ea 09/02/18 09/02/18 History carvedilol 25 mg tablet 25 mg PO DAILY #0 tab 09/02/18 09/27/18 History allopurinol 100 mg PO DAILY PRN 09/27/18 09/27/18 History amlodipine 5 mg PO DAILY 09/27/18 09/27/18 History insulin glargine [Basaglar KwikPen 30 units SUBCUT BID 09/27/18 09/27/18 History U-100 Insulin] metoprolol tartrate 50 tab PO BID 09/27/18 09/27/18 History Allergies Allergy/AdvReac Type Severity Reaction Status Date / Time acetaminophen Allergy Severe ANAPHYLAXIS Verified 09/27/18 16:20 codeine Allergy Severe ANAPHYLAXIS Verified 09/27/18 16:20 silicone Allergy Severe Swelling, Verified 09/27/18 16:20 rash Review of Systems Review of Systems All systems reviewed & are unremarkable except as noted in HPI and below Exam Vital Signs (past 8 hours): - 09/28/18 02:08 09/28/18 03:19 Temperature 98.3 F Pulse Rate 67 59 L Respiratory Rate 18 Blood Pressure 145/64 H 144/57 H Pulse Oximetry 98 Oxygen Delivery Method Room Air Oxygen Flow Rate 2 Narrative Exam Narrative: Patient is alert and oriented not complaining of pain at this time. Lungs are clear with no rales or wheezes Heart regular rhythm no murmur Abdomen is quite distended. There is a nasogastric tube in place with fecal material in the tube. Abdomen is tender in the right lower quadrant. There is no diffuse abdominal tenderness. There are no masses. There are no hernias. Patient's umbilicus has been removed during a distant umbilical hernia repair. No inguinal hernias are identified. Bowel sounds are hyperactive. Objective Labs Result Diagrams: 09/28/18 04:48 09/28/18 04:48 Labs: Laboratory Results - last 24 hr 09/27/18 09/27/18 09/27/18 16:50 16:50 16:50 WBC 10.7 RBC 4.34 L Hgb 13.6 Hct 39.6 L MCV 91.3 MCH 31.2 MCHC 34.2 RDW 15.2 H Plt Count 219 Neut % (Auto) 88.2 H Lymph % (Auto) 7.1 L [place] % (Auto) 3.6 Eos % (Auto) 0.7 L Baso % (Auto) 0.4 Neut # (Auto) 9500 H Lymph # (Auto) 800 L [place] # (Auto) 400 Eos # (Auto) 100 Baso # (Auto) 0 PT 16.3 H INR 1.4 H APTT 37 H D Sodium 135 L Potassium 4.3 Chloride 98 Carbon Dioxide 26 BUN 17 Creatinine 0.90 Estimated GFR > 60.0 BUN/Creatinine Ratio 18.9 Glucose 292 H Calcium 10.2 Magnesium Total Bilirubin 1.2 AST 27 ALT 21 Alkaline Phosphatase 170 H Total Protein 7.8 Albumin 4.5 Globulin 3.3 Albumin/Globulin Ratio 1.4 Triglycerides Cholesterol LDL Cholesterol, Calc HDL Cholesterol Lipase 21 L Urine RBC Urine WBC Urine Bacteria Urine Mucus Ur Culture Indicated? 09/27/18 09/27/18 09/28/18 16:50 18:43 04:48 WBC 7.3 RBC 3.71 L Hgb 11.7 L Hct 33.8 L MCV 91.0 MCH 31.6 MCHC 34.8 RDW 15.1 H Plt Count 173 Neut % (Auto) 79.0 H Lymph % (Auto) 12.6 L [place] % (Auto) 7.2 Eos % (Auto) 1.0 L Baso % (Auto) 0.2 Neut # (Auto) 5800 Lymph # (Auto) 900 L [place] # (Auto) 500 Eos # (Auto) 100 Baso # (Auto) 0 PT INR APTT Sodium Potassium Chloride Carbon Dioxide BUN Creatinine Estimated GFR BUN/Creatinine Ratio Glucose Calcium Magnesium 1.8 Total Bilirubin AST ALT Alkaline Phosphatase Total Protein Albumin Globulin Albumin/Globulin Ratio Triglycerides Cholesterol LDL Cholesterol, Calc HDL Cholesterol Lipase Urine RBC 0-1/hpf Urine WBC 0-1/hpf Urine Bacteria None seen Urine Mucus 1+ H Ur Culture Indicated? Cult not indicated 09/28/18 04:48 WBC RBC Hgb Hct MCV MCH MCHC RDW Plt Count Neut % (Auto) Lymph % (Auto) [place] % (Auto) Eos % (Auto) Baso % (Auto) Neut # (Auto) Lymph # (Auto) [place] # (Auto) Eos # (Auto) Baso # (Auto) PT INR APTT Sodium 136 L Potassium 3.8 Chloride 101 Carbon Dioxide 30 BUN 17 Creatinine 0.90 Estimated GFR > 60.0 BUN/Creatinine Ratio 18.9 Glucose 190 H D Calcium 8.8 Magnesium Total Bilirubin AST ALT Alkaline Phosphatase Total Protein Albumin Globulin Albumin/Globulin Ratio Triglycerides 135 Cholesterol 142 LDL Cholesterol, Calc 81 HDL Cholesterol 34 L Lipase Urine RBC Urine WBC Urine Bacteria Urine Mucus Ur Culture Indicated? Assessment & Plan Assessment & Plan narrative: Patient has small-bowel obstruction apparently due to ileal ileal intussusception. This has not resolved overnight with nasogastric suction. I have explained this to the patient who understands that operation is indicated to relieve this obstruction and try to salvage the bowel involved in the intussusception. The patient understands that he may need resection of a portion of the small bowel. Surgery is scheduled for this morning. Patient understands and acknowledges the plan and has no further questions.
[2018-09-28] MEDS: PANTOPRAZOLE 40 MG VIAL IV (09:18)
--- NOTE | 2018-09-28 09:58 | PC.NURSE ---
AM NOTE - pt is alert, denies nausea, abd is distended, has passed a little flatus overnight, ng tube LIS w/light limon fluid in tubing, in this am and after viewing am xray, surg will be done this am, consent signed, discussed vitals and iv metoprolol scheduled for 9 am not given, did have dose as 230am, per MD the ng tube needs to be advanced an addl 2-3 inches, tubing marked 2.5 inches and adv, pt tolerated, given iv protonix and cbg checked while here and given SS insulin 3 units.
[2018-09-28] MEDS: LACTATED RINGERS 1,000 ML 42 ML IV ×2 (10:30→12:20)
--- NOTE | 2018-09-28 11:54 | SUR.OPER ---
Supine on padded OR bed, head on pillow, arms secured on padded arm boards at <90 degrees abduction, legs uncrossed, safety belt at thigh, tape over blanket over lower legs.
[2018-09-28] MEDS: SODIUM CHLORIDE IRRIG SOLUTION 1,000 ML, BACITRACIN 50,000 UNIT IRR (12:00)
[2018-09-28] MEDS: NEOMYCIN/POLYMYXIN/BACITRA UD OINT 1 EACH TOP (12:02)
--- NOTE | 2018-09-28 12:24 | SUR.OPER ---
Patient's CBG taken at 1224 = 155. Dr. Mckay and Dr. Herndon notified.
--- NOTE | 2018-09-28 12:54 | PM.OP.1 ---
Operative Date/Time/Diagnoses Date of procedure: 09/28/18 Time of procedure: 12:54 Pre-op diagnosis: Small-bowel obstruction secondary to intussusception Post-op diagnosis: same Procedure & Clinicians Procedure: Exploratory laparotomy reduction of ileal ileal intussusception enterolysis Same procedure as scheduled: Yes Indications: Patient's small-bowel obstruction shown on CT scanning to be in the ileal ileal intussusception Surgeon: Zafar Herndon Click Yes if Unassisted: Yes Anesthesia Type: General Operative Notes Findings: Patient had distended proximal loops of small bowel and an ileal ileal intussusception just proximal to the ileocecal valve. This was reduced. Fluid was then able to clearly pass from the small bowel into the cecum and ascending colon Closure Type: primary Specimen(s): none sent Applied: catheter Estimated Blood Loss (mL): 50 Blood products transfused: none Procedure in detail: Under general endotracheal anesthesia the patient was properly identified during surgical pause. He is prepped and draped in sterile fashion exposure of the mid abdomen. a low midline incision was made the abdomen explored. Patient's proximal small bowel notably the jejunum was quite dilated and fluid filled. Noted were numerous jejunal diverticuli. The patient had a decompressed terminal ileum with an ileal ileal intussusception which may have been ongoing for some time as there were some adhesions around it. I did an enterolysis of these adhesions reduced the intussusception and palpated the area numerous times and could not identify a point or any lead point to cause the intussusception. I examined the entire small bowel from ligament of Treitz to the ileocecal valve and milked copious small bowel fluid into the cecum without difficulty. there is now easy flow of small bowel contents into the ascending colon. Once this was done the bowel was returned to its anatomic position incision closed by reapproximating the fascia with 1. Maxon. Subcu was irrigated with bacitracin saline. a closed subcu with 2 0 Vicryl and stapled the skin. sterile dressings applied the procedure was well tolerated. Complications: none Condition: stable Disposition: PACU
[2018-09-28] MEDS: fentaNYL 100 MCG/2 ML INJ 50 MCG IV (13:27)
--- NOTE | 2018-09-28 13:39 | SUR.PHASEI ---
Dozing, rates pain 1/10. Report called to floor. Stable. Oriented, arouses easily to voice. Denies nausea. Skin warm and dry, resp unlabored; on CPAP.
--- NOTE | 2018-09-28 14:26 | SUR.PHASEI ---
1406 Taken to room 221; bed down and locked, call light within reach, report updated. SCDs being applied by PEARL PELLER, CPAP on w/ O2 at 2L. Patient drowsy, lying with eyes closed. Arouses easily. States that pain has increased to 4-5; requests medication - will be given on N RONA Wasserman. VSS. Patient safe for transfer. No questions from staff, patient, or family. Abdominal dressing remains CDI, belly distended - shown to RN who states it was distended pre-op (as would be expected with this diagnosis).
[2018-09-28] MEDS: HYDROMORPHONE 0.5 MG INJ IV ×3 (14:27→22:14)
[2018-09-28] MEDS: SODIUM CHLORIDE 0.9% 1,000 ML 75 ML IV ×2 (14:34→22:08)
--- NOTE | 2018-09-28 16:42 | P.PN_ITS ---
Subjective Date Patient Seen: 09/28/18 Interval history: The patient is a 68-year-old male who was admitted to the hospital with small bowel obstruction and intussusception. He went to the OR today and had a successful repair of his bowel obstruction. He is typically on insulin U 130 units twice daily plus metformin a 1000 units b.i.d.. He is NPO and all oral meds will be held. Will start him back on Lantus 30 units b.i.d. and continue to titrate as needed. Patient does report some abdominal pain. He is not short of breath. He is now on CPAP which he uses at home. Exam Vital Signs (past 8 hours): - 09/28/18 09:00 09/28/18 10:27 09/28/18 13:04 Temperature 97 F L 98.2 F Pulse Rate 57 L 65 Respiratory Rate 16 16 Blood Pressure 162/65 H 166/70 H Pulse Oximetry 97 95 97 09/28/18 13:13 09/28/18 13:23 09/28/18 13:28 Temperature Pulse Rate 61 59 L 61 Respiratory Rate 19 17 17 Blood Pressure 180/78 H 177/73 H 175/77 H Pulse Oximetry 94 95 96 09/28/18 13:43 09/28/18 13:58 09/28/18 14:15 Temperature 98.1 F 96.8 F L Pulse Rate 56 L 63 61 Respiratory Rate 14 9 L 16 Blood Pressure 168/69 H 180/73 H 174/77 H Pulse Oximetry 95 95 96 09/28/18 14:21 09/28/18 15:12 09/28/18 16:04 Temperature 96.8 F L 97.8 F Pulse Rate 57 L 64 Respiratory Rate 16 16 Blood Pressure 167/59 H 161/61 H Pulse Oximetry 96 97 98 Oxygen Delivery Method Nasal Cannula,CPAP Oxygen Flow Rate 2 Narrative Exam Narrative: Pleasant gentleman in no distress Lungs: Clear to auscultation Cardiac exam: Regular rate and rhythm normal S1-S2 Abdomen: Soft, hypoactive bowel tones, dressing in place over the midline incision minimal oozing Extremities: 1+ edema Objective Labs Result Diagrams: 09/28/18 04:48 09/28/18 04:48 Labs: Laboratory Results - last 24 hr 09/27/18 09/27/18 09/27/18 16:50 16:50 16:50 WBC 10.7 RBC 4.34 L Hgb 13.6 Hct 39.6 L MCV 91.3 MCH 31.2 MCHC 34.2 RDW 15.2 H Plt Count 219 Neut % (Auto) 88.2 H Lymph % (Auto) 7.1 L [place] % (Auto) 3.6 Eos % (Auto) 0.7 L Baso % (Auto) 0.4 Neut # (Auto) 9500 H Lymph # (Auto) 800 L [place] # (Auto) 400 Eos # (Auto) 100 Baso # (Auto) 0 PT 16.3 H INR 1.4 H APTT 37 H D Sodium 135 L Potassium 4.3 Chloride 98 Carbon Dioxide 26 BUN 17 Creatinine 0.90 Estimated GFR > 60.0 BUN/Creatinine Ratio 18.9 Glucose 292 H Calcium 10.2 Magnesium Total Bilirubin 1.2 AST 27 ALT 21 Alkaline Phosphatase 170 H Total Protein 7.8 Albumin 4.5 Globulin 3.3 Albumin/Globulin Ratio 1.4 Triglycerides Cholesterol LDL Cholesterol, Calc HDL Cholesterol Lipase 21 L Urine RBC Urine WBC Urine Bacteria Urine Mucus Ur Culture Indicated? 09/27/18 09/27/18 09/28/18 16:50 18:43 04:48 WBC 7.3 RBC 3.71 L Hgb 11.7 L Hct 33.8 L MCV 91.0 MCH 31.6 MCHC 34.8 RDW 15.1 H Plt Count 173 Neut % (Auto) 79.0 H Lymph % (Auto) 12.6 L [place] % (Auto) 7.2 Eos % (Auto) 1.0 L Baso % (Auto) 0.2 Neut # (Auto) 5800 Lymph # (Auto) 900 L [place] # (Auto) 500 Eos # (Auto) 100 Baso # (Auto) 0 PT INR APTT Sodium Potassium Chloride Carbon Dioxide BUN Creatinine Estimated GFR BUN/Creatinine Ratio Glucose Calcium Magnesium 1.8 Total Bilirubin AST ALT Alkaline Phosphatase Total Protein Albumin Globulin Albumin/Globulin Ratio Triglycerides Cholesterol LDL Cholesterol, Calc HDL Cholesterol Lipase Urine RBC 0-1/hpf Urine WBC 0-1/hpf Urine Bacteria None seen Urine Mucus 1+ H Ur Culture Indicated? Cult not indicated 09/28/18 04:48 WBC RBC Hgb Hct MCV MCH MCHC RDW Plt Count Neut % (Auto) Lymph % (Auto) [place] % (Auto) Eos % (Auto) Baso % (Auto) Neut # (Auto) Lymph # (Auto) [place] # (Auto) Eos # (Auto) Baso # (Auto) PT INR APTT Sodium 136 L Potassium 3.8 Chloride 101 Carbon Dioxide 30 BUN 17 Creatinine 0.90 Estimated GFR > 60.0 BUN/Creatinine Ratio 18.9 Glucose 190 H D Calcium 8.8 Magnesium Total Bilirubin AST ALT Alkaline Phosphatase Total Protein Albumin Globulin Albumin/Globulin Ratio Triglycerides 135 Cholesterol 142 LDL Cholesterol, Calc 81 HDL Cholesterol 34 L Lipase Urine RBC Urine WBC Urine Bacteria Urine Mucus Ur Culture Indicated? Assessment & Plan (1) SBO (small bowel obstruction): Problem details: Patient is status post repair small bowel obstruction with lysis of adhesion recovering nicely Current visit: Yes Status: Acute (2) Obstructive sleep apnea of adult: Problem details: History of sleep apnea, chronic, continue CPAP Current visit: No Status: Chronic (3) Obesity (BMI 30-39.9): Current visit: No Status: Chronic (4) Diabetes mellitus type 2 in obese: Problem details: Type 2 diabetes, typically on U 30 units twice daily and metformin 1000 b.i.d. Will start Lantus 30 units twice daily. I do not believe we have U 100 here. Will titrate as needed. Current visit: No Status: Acute (5) Anemia: Problem details: Anemia, chronic Qualifiers: Anemia type: Iron deficiency anemia type: Vitamin B12 deficiency anemia type: Folate deficiency anemia type: Bone marrow failure anemia type: Hemolytic anemia type: Other causes of anemia: Chronic kidney disease stage: Current visit: No Status: Chronic (6) Gout: Problem details: Gout, chronic not currently active Current visit: No Status: Chronic (7) Hyperlipidemia: Problem details: Hyperlipidemia, Current visit: No Status: Chronic (8) Hypertension: Problem details: Hypertension, chronic will continue IV Lopressor for now will switch his usual meds when taking p.o.. Current visit: No Status: Chronic (9) Coronary artery disease: Problem details: Coronary artery disease chronic will monitor Current visit: No Status: Chronic
[2018-09-28] MEDS: HEPARIN 5,000 UNIT/ML VIAL 5000 UNIT SUBCUT (21:54)
[2018-09-28] MEDS: GABAPENTIN 300 MG CAPSULE PO (21:54)
[2018-09-28] MEDS: METOCLOPRAMIDE HCL 10 MG TABLET PO (21:54)
[2018-09-28] MEDS: INSULIN GLARGINE 100 UNIT/ML 3ML PEN 30 UNIT SUBCUT (21:55)
[2018-09-29] VITALS (8 sets, daily range): BP systolic 150–187; BP diastolic 72–92; PULSE 70–87; RESP 16–18; TEMP 36.7–37; O2SAT 93–97
[2018-09-29] MEDS: METOPROLOL TARTRATE 5 MG/5 ML INJ IV ×3 (03:24→09:42)
[2018-09-29] MEDS: MAG HYDROX/ALUM/SIMETH 30 ML UDC PO (04:02)
[2018-09-29] MEDS: ONDANSETRON 4 MG/2 ML INJ IV (06:47)
[2018-09-29] MEDS: METOCLOPRAMIDE HCL 10 MG TABLET PO (08:07)
[2018-09-29] MEDS: PANTOPRAZOLE 40 MG VIAL IV (08:07)
[2018-09-29] MEDS: HEPARIN 5,000 UNIT/ML VIAL 5000 UNIT SUBCUT (08:07)
--- NOTE | 2018-09-29 09:07 | DI.RAD.S_ITS ---
PROCEDURE: XR CHEST 1V INDICATIONS: EKG changes TECHNIQUE: One view of the chest was acquired. COMPARISON: [facility], CR, XR CHEST 1V, 06/20/2018, 0:14. [facility], CR, XR CHEST 1V, 04/12/2018, 7:43. FINDINGS: Surgical changes and devices: Sternotomy wires, presumed prior CABG. Lungs and pleura: Lungs are clear considering reduced inspiratory volume. No pleural effusions or pneumothorax. Mediastinum: Mediastinal contours appear normal. Heart size is normal. Bones and chest wall: No suspicious bony lesions. Overlying soft tissues appear unremarkable. IMPRESSION: Prior CABG, reduced inspiration, no sign of cardiomegaly or CHF when this is taken into account. Dictated by: Charles Sumner M.D. on 09/29/2018 at 9:35 Approved by: Charles Sumner M.D. on 09/29/2018 at 9:36
[2018-09-29] MEDS: ASPIRIN 81 MG TAB 324 MG PO (09:13)
[2018-09-29] MEDS: CLOPIDOGREL 75 MG TABLET 600 MG PO (09:14)
--- NOTE | 2018-09-29 09:25 | PM.PN.1 ---
Subjective Date Patient Seen: 09/29/18 Time Patient Seen: 09:25 Interval history: Patient is 1 day post exploratory laparotomy resolution of his intussusception. Still complaining of some nausea. Has some chest discomfort today ECG shows STEMI myocardial infarction. Patient has a history of having coronary artery bypass 2 years ago. He is diabetic. He is being seen by basket maker now on being transferred for intervention. Exam Vital Signs (past 8 hours): - 09/29/18 03:27 09/29/18 07:30 09/29/18 08:00 Temperature 98.2 F 98.6 F Pulse Rate 76 87 Respiratory Rate 18 16 Blood Pressure 150/75 H 187/86 H Pulse Oximetry 96 93 96 Oxygen Delivery Method Room Air Oxygen Flow Rate 0 Narrative Exam Narrative: Patient is alert and oriented. Complaining mostly of nausea. Heart rate in the 70s and low 80s. Blood pressure elevated 180 over 80. Abdomen is still distended incision is dry. Does have bowel sounds. Objective Labs Result Diagrams: 09/28/18 04:48 09/28/18 04:48 Assessment & Plan Assessment & Plan narrative: Patient is having an acute myocardial infarction postop. He had no bowel reconstructive surgery. Whereas there is a small risk of bleeding particularly with the incision I have agreed to allow systemic anticoagulation. This gives him the best chance of surviving his myocardial infarction. He is being transferred for cardiac catheterization and possible stent placement. This is being arranged by the hospitalist and basket maker. Patient is stable at this time.
[2018-09-29] MEDS: HEPARIN DRIP 25,000 UNIT/500 ML IV.SOLN 28.56 UNIT IV (09:27)
[2018-09-29] MEDS: HEPARIN 5,000 UNIT/ML VIAL 5000 UNIT IV (09:27)
--- NOTE | 2018-09-29 09:28 | P.PN_ITS ---
Subjective Date Patient Seen: 09/29/18 Time Patient Seen: 09:25 Interval history: Patient is 1 day post exploratory laparotomy resolution of his intussusception. Still complaining of some nausea. Has some chest discomfort today ECG shows STEMI myocardial infarction. Patient has a history of having coronary artery bypass 2 years ago. He is diabetic. He is being seen by associate publisher now on being transferred for intervention. Exam Vital Signs (past 8 hours): - 09/29/18 03:27 09/29/18 07:30 09/29/18 08:00 Temperature 98.2 F 98.6 F Pulse Rate 76 87 Respiratory Rate 18 16 Blood Pressure 150/75 H 187/86 H Pulse Oximetry 96 93 96 Oxygen Delivery Method Room Air Oxygen Flow Rate 0 Narrative Exam Narrative: Patient is alert and oriented. Complaining mostly of nausea. Heart rate in the 70s and low 80s. Blood pressure elevated 180 over 80. Abdomen is still distended incision is dry. Does have bowel sounds. Objective Labs Result Diagrams: 09/28/18 04:48 09/28/18 04:48 Assessment & Plan Assessment & Plan narrative: Patient is having an acute myocardial infarction postop. He had no bowel reconstructive surgery. Whereas there is a small risk of bleeding particularly with the incision I have agreed to allow systemic anticoagulation. This gives him the best chance of surviving his myocardial infarction. He is being transferred for cardiac catheterization and possible stent placement. This is being arranged by the hospitalist and associate publisher. Patient is stable at this time.
[2018-09-29 09:36] LABS: Add Manual Diff / Slide Review NO; Basophils Absolute Auto 0 /uL (0-100); Basophils Percent Auto 0.2 % (0-2); Eosinophils Absolute Auto 0 /uL (0-450); Eosinophils Percent Auto 0.2 % (2-4); Hematocrit 40.4 % (41-53); Hemoglobin 13.6 g/dL (13.5-17.5); Lymphocytes Absolute Auto 700 /uL (1100-4500); Lymphocytes Percent Auto 6.6 % (25-40); Mean Corpuscular HGB Conc 33.6 % (30-36); Mean Corpuscular Hemoglobin 31.5 PG (26-34); Mean Corpuscular Volume 93.6 fL (80-100); Monocytes Absolute Auto 600 /uL (0-900); Monocytes Percent Auto 5.8 % (3-14); Neutrophils Absolute Auto 9300 /uL (1500-7000); Neutrophils Percent Auto 87.2 % (50-75); Platelet Count 210 X10^3/uL (150-400); Red Blood Cell Count 4.32 X10^6/uL (4.5-5.9); Red Cell Distribution Width 15.8 % (11.6-14.8); White Blood Cell Count 10.6 X10^3/uL (4.5-11.0)
[2018-09-29] MEDS: INSULIN ASPART 100 UNIT/ML INSULN PEN SUBCUT (09:42)
[2018-09-29 09:47] LABS: INR 1.4 (0.9-1.3)
[2018-09-29 09:49] LABS: Creatine Kinase 141 U/L (55-170); PTT Partial Thromboplastin Tim 33 SECONDS (26.4-36.2)
[2018-09-29 09:51] LABS: Alanine Aminotransferase 23 IU/L (21-72); Albumin 3.4 g/dL (3.5-5.0); Albumin Globulin Ratio 1.3 (1.0-2.8); Alkaline Phosphatase 119 U/L (38-126); Aspartate Aminotransferase 23 IU/L (17-59); Bilirubin Total 0.9 mg/dL (0.2-1.3); Blood Urea Nitrogen 18 mg/dL (9-20); Calcium 8.7 mg/dL (8.4-10.2); Carbon Dioxide 26 mmol/L (22-32); Chloride 102 mmol/L (98-107); Estimated Glomerular Filt Rate > 60.0 mL/min (>60); Globulin 2.7 g/dL (1.7-4.1); Glucose 240 mg/dL (80-110); HEMOLYSIS < 15 (0-50); Sodium 136 mmol/L (137-145); Total Protein 6.1 g/dL (6.3-8.2)
[2018-09-29 10:01] LABS: Troponin I 0.012 ng/mL (0.01-0.034)
[2018-09-29 10:05] LABS: CKMB % Relative Index 0.5 % (1.5-5.0); Creatine Kinase MB 0.72 ng/mL (<2.37)
--- NOTE | 2018-09-29 10:24 | PC.NURSE ---
Per INVENTORY ASSISTANT patient has brief period of possible ectopy with EKG changes noted on telemetry around 730am, which resolved spontaneously. Patient was resting in bed experiencing nausea since around 6am per counseling center director nurse. Notified again from INVENTORY ASSISTANT of concern for new changes with possible ST elevation noted, immediately ordered 12 lead EKG and RT to bedside to complete. Dr. Beal paged x 3 and unable to reach. Dr. Herndon notified and states his is on his way in. EKG shown to ER doctor by RT and assistance to activate STEMI protocol obtained. Dr. Beal then at bedside to evaluate patient. Stock Clerk consulted by Dr. Beal and also evaluated EKG and patient at bedside. ASA chewable given, Plavix 600mg po given and then IV heparin loading dose 5000 units given as ordered. IV heparin gtt started per cardiac protocol as ordered. 4units SQ aspart insulin x 1 given for BG of 216 this morning. Patient picked up by flight team to be airlifted to [facility] in [place] with accepting MD Dr. Caro, as arranged by Dr. Beal and director nursing service. Patient sent with all belongings and spoke with his who is aware of his transport.
[2018-09-29 10:33] LABS: Potassium 4.5 mmol/L (3.4-5.1)
--- NOTE | 2018-09-29 15:09 | CM.DPNOTE ---
Trnsf Note: Pt discussed in multidisciplinary rounds this morning. Dr Beal working on trnsf to [facility] this morning for acute VT. DAVON Sims
--- NOTE | 2018-09-30 12:53 | P.DS_ITS ---
History of Present Illness Date Patient Seen: 09/29/18 Chief complaint: STOMACH PAIN NAUSEA Narrative: Mr. Giovani Lowery is a 68-year-old male patient with history significant for coronary artery disease status post stenting and CABG by 2, insulin dependent diabetes type 2, hypertension, gastric ulcer and obstructive sleep on CPAP who presents to the ER with abdominal pain with nausea and vomiting. The patient states that he woke in the early hours of the morning with abdominal pain and nausea but no vomiting. He states he tolerated a small breakfast this morning without worsening of symptoms. He reports that this afternoon his pain was worsening and believed was related to his previous gastric ulcer and had a milkshake were on his pain became worse and he had vomiting prompting him to present to the ER for evaluation. Patient did have an admission to [facility] from June 19 to June 30 for acute hepatitis during which time he developed acute kidney injury and and also treated with dialysis that was continued for 3-4 weeks post discharge with resolution of his symptoms. He reports no prodromal symptoms and has had no recent cold or illness, fevers or chills, chest pain or palpitations. He denies complaints of shortness of breath coughing or wheezing. He has had dominant pain and nausea vomiting as described above but none prior to this event. He reports noted changes in bowel habits and reports no dysuria or nocturia. Upon arrival in the ER the patient was afebrile with a temperature of 98.1? with a heart rate of 67, blood pressure 167/91 and respiratory rate of 20 saturating 99% on room air. In the ER the patient received IV fluid and Zofran. Abdominal film identify suggestion of small bowel obstruction large cardiac silhouette and pulmonary vascular congestion. EKG was obtained which finds sinus rhythm without ectopy ST or T-wave changes. He does have Q-waves in the inferior leads indicative of old infarct. General surgery was contacted and Dr. Herndon requ ests an abdominal CT with oral contrast. On laboratory analysis the patient has a normal white count of 10.7 with an elevated neutrophil percentage 80.2. He has of hemoglobin had a crit of 13.6 and 39.6 respectively and platelets of 219. His electrolytes are within normal limits with good renal function with BUN of 17 and creatinine 0.9. The patient's total bilirubin is 1.2 with an AST of 27, ALT of 21 and alk-phos of 170. His lipase is 21. He does have mildly elevated PT at 16.3 with INR 0.4. His blood sugar today is 292 and has had a recent hemoglobin A1c completed on 09/04/2018 found to be 9.0. Abdominal CT head findings significant for moderate distal small-bowel obstruction with zone of transmission the terminal ileum proximal to the ileocecal valve. CC scan also finds suggestion of short-segment ileal ileal intussusception. Patient has had an NG-tube placed and is admitted to the acute medical surgical floor for small- bowel obstruction. Discharge Providers Date of admission: 09/27/18 19:18 Discharge Date: 09/29/18 Primary care physician: Reji Malave MD Consults: 09/27/18 20:40 Consult to Discharge Planning Routine Comment: 09/27/18 20:56 Consult to Respiratory Therapy Evaluate & Treat Comment: Physician Instructions: Evaluate and treat 09/27/18 21:24 Consult to Cae Engineer Routine Comment: 09/28/18 14:21 Consult to Discharge Planning Routine Comment: 09/28/18 15:56 Consult to Respiratory Therapy Evaluate & Treat Comment: Physician Instructions: Evaluate and treat Discharge provider: Adia Beal MD Summary Discharge Diagnosis: 1. Acute ST-elevation WA 2. Status post lysis of adhesions and internal colitis is of a ileal to ileal intussusception 3. Small-bowel obstruction 4. Type 2 diabetes on insulin 5. Hypertension 6. Hyperlipidemia 7. Gout 8. Hypothyroid 9. History of coronary disease status post bypass surgery and stent placed Hospital Course: Patient was admitted to the hospital for intussusception of small bowel obstruction. Was taken to the operating room the following day for inter coli cysts and reduction of the ileal to ileal intussusception. The following day the patient was noted on telemetry to have ST segment elevation. He had no chest pain or shortness of breath. A 12 lead EKG was obtained and revealed ST-elevation in leads 2 3 and 4 that were concerning for an acute WA. The EKGs were faxed to the home health manager on-call Dr. Ramos who agrees that this appeared to be an acute ST-elevation WA. Patient had stat labs obtained. A calls were made to [facility] and [facility] in [facility]. The patient was airlifted to [place] for definitive treatment. At no time did he complain of shortness of breath or chest pain. He had nausea and some mid abdominal pain from his surgical incision. Patient was rapidly transferred to a higher level of care for treatment of an ST-elevation WA. Status at Discharge Cognitive/behavioral status at discharge: oriented Functional status at discharge: independent ambulation Overall status at discharge: patient is not back to baseline Time Spent with Patient Greater than 30 minutes Exam Vital Signs (past 8 hours): Fraction of Inspired Oxygen 28 Oxygen Delivery Method Nasal Cannula Oxygen Flow Rate 2 Narrative Exam Narrative: Pleasant male Lungs: Clear to auscultation Cardiac exam: Regular rate rhythm normal S1-S2 Abdomen: Soft mildly tender midline surgical incision with dressing in place no rebound tender no board-like rigidity Extremities: Trace edema Objective Labs Result Diagrams: 09/29/18 09:20 09/29/18 09:20 Discharge Plan Discharge Plan Patient Disposition: [facility] Transfer to: [facility] Discharge comment: Acute STEMI Discharge Med Rec/Prescriptions Prescriptions: Continued carvedilol [Coreg] 25 mg tablet 25 mg PO DAILY Qty: 0 RF: 0 metoprolol tartrate 50 mg Tablet 50 tab PO BID RF: 0 amlodipine 5 mg tablet 5 mg PO DAILY RF: 0 allopurinol 100 mg tablet 100 mg PO DAILY PRN (Reason: Gout) RF: 0 insulin glargine 100 unit/mL (3 mL) insulin pen 30 units subcut BID RF: 0 One Touch Ultra Test Strips strip RF: 0 metformin 1,000 mg tablet 1,000 mg PO BID RF: 0 levothyroxine 112 mcg tablet 112 mcg PO DAILY RF: 0 insulin aspart U-100 100 unit/mL insulin pen See Rx Instructions .ROUTE .COMPLEX RF: 0 Respironics Dreamstation CPAP Qty: 1 RF: 0 Follow up/Referrals: Reji Malave MD [Primary Care Provider] - Discharge Orders: Discharge (Order); Ordered 09/29/18 Ordered By: Adia Beal Provider Discharge Instructions Diet: Diet as Tolerated Liquid consistency: Normal/Thin Food texture: Regular Discharge Data Primary Care Provider: Reji Malave Attending Provider: Herberth Soto Admit Date/Time: 09/27/18 19:18 Discharges patient from system. Discharge Date/Time: 09/29/18 10:25
== END 2018-09-29 10:25 | disposition short-term general hospital (02) | DRG 329 ==
LOC: ED 19:15 → AC 19:19
PROVIDERS: Internal Medicine; Surgery; Admitting Provider Nurse Practitioner Adult Health; Emergency Provider Emergency Medicine; Family Provider Student in an Organized Health Care Education/Training Program; PCP Internal Medicine; Visit Provider Nurse Practitioner Adult Health
PROC: 0DSB0ZZ Reposition Ileum, Open Approach (ICD-10-PCS; CPT 49000; principal; 2018-09-28 11:00)
DX: K56.1 Intussusception (principal); I21.3 ST elevation (STEMI) myocardial infarction of unspecified site; K66.0 Peritoneal adhesions (postprocedural) (postinfection); Z95.1 Presence of aortocoronary bypass graft; Z79.4 Long term (current) use of insulin; E66.9 Obesity, unspecified; I25.10 Atherosclerotic heart disease of native coronary artery without angina pectoris; E78.5 Hyperlipidemia, unspecified; Z87.891 Personal history of nicotine dependence; E11.65 Type 2 diabetes mellitus with hyperglycemia; D64.9 Anemia, unspecified; E03.9 Hypothyroidism, unspecified
CPT/HCPCS: 36415; 36591; 71045; 74022; 74177; 80048; 80053; 80061; 81003; 81015; 82550; 82553; 82962; 83690; 83735; 84484; 85025; 85610; 85730; 93005; 94762; 96361; 96374; 96375; 96376; 99283; 99285; C9113; J0330; J1170; J1644; J2250; J2405; J2704; J3010; Q9967

== ENCOUNTER → 2018-12-06 12:13 | Outpatient (CLI) | payer MEDICARE, OTHER, SELFPAY ==
[2018-10-08 10:20] VITALS: BMI 35.4
[2018-12-06 12:50] LABS: Hemoglobin A1C% w Est Avg Glu 6.4 % (4.0-6.0)
[2018-12-06 13:03] LABS: Add Manual Diff / Slide Review NO; Basophils Absolute Auto 0 /uL (0-100); Basophils Percent Auto 0.4 % (0-2); Eosinophils Absolute Auto 100 /uL (0-450); Eosinophils Percent Auto 2.1 % (2-4); Hemoglobin 12.3 g/dL (13.5-17.5); Lymphocytes Absolute Auto 1300 /uL (1100-4500); Lymphocytes Percent Auto 24.6 % (25-40); Mean Corpuscular HGB Conc 33.2 % (30-36); Mean Corpuscular Hemoglobin 30.8 PG (26-34); Mean Corpuscular Volume 92.7 fL (80-100); Monocytes Absolute Auto 400 /uL (0-900); Monocytes Percent Auto 7.3 % (3-14); Neutrophils Absolute Auto 3400 /uL (1500-7000); Neutrophils Percent Auto 65.6 % (50-75); Platelet Count 150 X10^3/uL (150-400); Red Blood Cell Count 3.99 X10^6/uL (4.5-5.9); White Blood Cell Count 5.1 X10^3/uL (4.5-11.0)
[2018-12-06 13:53] LABS: HEMOLYSIS 16 (0-50); Iron 117 ug/dL (49-181)
[2018-12-06 13:56] LABS: Alanine Aminotransferase 18 IU/L (21-72); Albumin 3.7 g/dL (3.5-5.0); Albumin Globulin Ratio 1.4 (1.0-2.8); Alkaline Phosphatase 88 U/L (38-126); Aspartate Aminotransferase 26 IU/L (17-59); Bilirubin Total 0.7 mg/dL (0.2-1.3); Blood Urea Nitrogen 26 mg/dL (9-20); Calcium 9.4 mg/dL (8.4-10.2); Carbon Dioxide 26 mmol/L (22-32); Chloride 100 mmol/L (98-107); Estimated Glomerular Filt Rate > 60.0 mL/min (>60); Globulin 2.6 g/dL (1.7-4.1); Glucose 206 mg/dL (80-110); HEMOLYSIS < 15 (0-50); Potassium 4.8 mmol/L (3.4-5.1); Sodium 136 mmol/L (137-145); Total Protein 6.3 g/dL (6.3-8.2)
[2018-12-06 14:06] LABS: Percent Iron Saturation 37 % (20-50); Total Iron Binding Capacity 318 ug/dL (261-462); Transferrin 256 mg/dL (206-381)
[2018-12-06 15:14] LABS: Creatinine Urine Random 56.5 mg/dL
[2018-12-06 15:17] LABS: Microalbumi Creatinin Ratio Ur 40.7 ug/mg CR (<30); Microalbumin Urine Random 2.3 mg/dL (0-1.6)
== END ==
PROVIDERS: PCP Internal Medicine; Visit Provider Internal Medicine
DX: M15.0 Primary generalized (osteo)arthritis (principal); I12.9 Hypertensive chronic kidney disease with stage 1 through stage 4 chronic kidney disease, or unspecified chronic kidney disease; N18.9 Chronic kidney disease, unspecified; D64.9 Anemia, unspecified
CPT/HCPCS: 36415; 80053; 82043; 82570; 83036; 83540; 83550; 85025

== ENCOUNTER → 2019-03-03 12:19 | Outpatient (CLI) | payer MEDICARE, OTHER, SELFPAY ==
[2018-10-08 10:20] VITALS: BMI 35.4
[2019-03-03 13:10] LABS: Add Manual Diff / Slide Review NO; Basophils Absolute Auto 0 /uL (0-100); Basophils Percent Auto 0.6 % (0-2); Eosinophils Absolute Auto 100 /uL (0-450); Hematocrit 38.7 % (41-53); Hemoglobin 13.3 g/dL (13.5-17.5); Lymphocytes Absolute Auto 1500 /uL (1100-4500); Lymphocytes Percent Auto 25.6 % (25-40); Mean Corpuscular HGB Conc 34.4 % (30-36); Mean Corpuscular Hemoglobin 31.7 PG (26-34); Mean Corpuscular Volume 92.3 fL (80-100); Monocytes Absolute Auto 500 /uL (0-900); Monocytes Percent Auto 8.9 % (3-14); Neutrophils Absolute Auto 3700 /uL (1500-7000); Neutrophils Percent Auto 62.9 % (50-75); Platelet Count 157 X10^3/uL (150-400); Red Cell Distribution Width 13.9 % (11.6-14.8)
[2019-03-03 13:17] LABS: Hemoglobin A1C% w Est Avg Glu 7.4 % (4.0-6.0)
[2019-03-03 14:33] LABS: Alanine Aminotransferase 15 IU/L (<50); Albumin Globulin Ratio 1.7 (1.0-2.8); Alkaline Phosphatase 68 U/L (38-126); Aspartate Aminotransferase 18 IU/L (17-59); Bilirubin Total 0.8 mg/dL (0.2-1.3); Blood Urea Nitrogen 18 mg/dL (9-20); Calcium 9.7 mg/dL (8.4-10.2); Carbon Dioxide 30 mmol/L (22-32); Chloride 95 mmol/L (98-107); Estimated Glomerular Filt Rate > 60.0 mL/min (>60); Globulin 2.3 g/dL (1.7-4.1); Glucose 265 mg/dL (80-110); HEMOLYSIS < 15 (0-50); Potassium 4.8 mmol/L (3.4-5.1); Sodium 135 mmol/L (137-145); Total Protein 6.3 g/dL (6.3-8.2)
== END ==
PROVIDERS: PCP Internal Medicine; Visit Provider Internal Medicine
DX: G47.30 Sleep apnea, unspecified (principal); E11.9 Type 2 diabetes mellitus without complications
CPT/HCPCS: 36415; 80053; 83036; 85025

== ENCOUNTER → 2019-03-19 13:14 | Outpatient (CLI) | payer MEDICARE, OTHER, SELFPAY ==
[2019-03-19 12:43] VITALS: BMI 35.4
--- NOTE | 2019-03-19 13:17 | DI.RAD.S_ITS ---
PROCEDURE: XR FINGER LT MIN 2V INDICATIONS: Thumb TECHNIQUE: AP hand, 2 views of the 1st finger(s) acquired. COMPARISON: None. FINDINGS: Bones: There is a minimally displaced fracture seen involving the proximal aspect of the distal phalanx of the thumb. No additional fractures are detected. Soft tissues: No suspicious soft tissue calcifications. IMPRESSION: Minimally displaced fracture involving the proximal aspect of the distal phalanx of the thumb. Dictated by: Jose R Garsia M.D. on 03/19/2019 at 12:30 Approved by: Jose R Garsia M.D. on 03/19/2019 at 12:31
== END ==
PROVIDERS: PCP Internal Medicine; Visit Provider Nurse Practitioner
DX: S69.92XA Unspecified injury of left wrist, hand and finger(s), initial encounter (principal); X58.XXXA Exposure to other specified factors, initial encounter
CPT/HCPCS: 73140

== ENCOUNTER → 2019-06-07 09:12 | Outpatient (CLI) | payer MEDICARE, OTHER, SELFPAY ==
[2019-03-19 12:43] VITALS: BMI 35.4
[2019-06-07 10:21] LABS: BUN Creatinine Ratio 27.8 (6-22); Blood Urea Nitrogen 25 mg/dL (9-20); Calcium 9.7 mg/dL (8.4-10.2); Carbon Dioxide 30 mmol/L (22-32); Chloride 103 mmol/L (98-107); Estimated Glomerular Filt Rate > 60.0 mL/min (>60); Glucose 87 mg/dL (80-110); HEMOLYSIS 30 (0-50); Potassium 4.4 mmol/L (3.4-5.1); Sodium 141 mmol/L (137-145)
[2019-06-07 10:22] LABS: Hemoglobin A1C% w Est Avg Glu 7.9 % (4.0-6.0)
== END ==
PROVIDERS: PCP Internal Medicine; Referring Provider Internal Medicine; Visit Provider Internal Medicine
DX: E11.9 Type 2 diabetes mellitus without complications (principal)
CPT/HCPCS: 36415; 80048; 83036

== ENCOUNTER → 2019-08-25 17:12 | Outpatient (CLI) | payer MEDICARE, OTHER, SELFPAY ==
[2019-03-19 12:43] VITALS: BMI 35.4
[2019-08-25 18:15] LABS: Alanine Aminotransferase 26 IU/L (<50); Albumin 4.4 g/dL (3.5-5.0); Albumin Globulin Ratio 1.6 (1.0-2.8); Alkaline Phosphatase 86 U/L (38-126); Aspartate Aminotransferase 30 IU/L (17-59); BUN Creatinine Ratio 21.7 (6-22); Blood Urea Nitrogen 23 mg/dL (9-20); Calcium 9.6 mg/dL (8.4-10.2); Carbon Dioxide 30 mmol/L (22-32); Chloride 102 mmol/L (98-107); Cholesterol 153 mg/dL (140-199); Estimated Glomerular Filt Rate > 60.0 mL/min (>60); Globulin 2.8 g/dL (1.7-4.1); Glucose 193 mg/dL (80-110); HDL Cholesterol 42 mg/dL (40-60); HEMOLYSIS 21 (0-50); LDL Cholesterol Calculated 63 mg/dL (<100); Potassium 4.3 mmol/L (3.4-5.1); Sodium 139 mmol/L (137-145); Total Protein 7.2 g/dL (6.3-8.2); Triglycerides 241 mg/dL (35-150)
[2019-08-25 18:24] LABS: Hemoglobin A1C% w Est Avg Glu 6.4 % (4.0-6.0)
== END ==
PROVIDERS: PCP Internal Medicine; Referring Provider Internal Medicine; Visit Provider Internal Medicine
DX: E11.9 Type 2 diabetes mellitus without complications (principal); M15.0 Primary generalized (osteo)arthritis; E78.00 Pure hypercholesterolemia, unspecified; E03.9 Hypothyroidism, unspecified
CPT/HCPCS: 36415; 80053; 80061; 83036; 84443

== ENCOUNTER → 2019-12-08 12:37 | Outpatient (CLI) | payer MEDICARE, OTHER, SELFPAY ==
[2019-03-19 12:43] VITALS: BMI 35.4
[2019-12-08 13:26] LABS: Hematocrit 45.7 % (41-53); Hemoglobin 15.7 g/dL (13.5-17.5); Mean Corpuscular HGB Conc 34.4 % (30-36); Mean Corpuscular Hemoglobin 32.5 PG (26-34); Mean Corpuscular Volume 94.5 fL (80-100); Platelet Count 140 X10^3/uL (150-400); Red Blood Cell Count 4.83 X10^6/uL (4.5-5.9); Red Cell Distribution Width 13.9 % (11.6-14.8); White Blood Cell Count 6.5 X10^3/uL (4.5-11.0)
[2019-12-08 13:33] LABS: Hemoglobin A1C% w Est Avg Glu 7.3 % (4.0-6.0)
[2019-12-08 13:56] LABS: Total Iron Binding Capacity 317 ug/dL (261-462); Transferrin 251 mg/dL (206-381)
[2019-12-08 14:03] LABS: Free T4, Direct Thyroxine 1.18 ng/dL (0.78-2.19)
[2019-12-08 14:07] LABS: Creatinine Urine Random 84.6 mg/dL
[2019-12-08 14:08] LABS: HEMOLYSIS 18 (0-50); Iron 105 ug/dL (49-181); Percent Iron Saturation 33 % (20-50)
[2019-12-08 14:09] LABS: Thyroid Stimulating Hormone 2.77 uIU/mL (0.47-4.68)
[2019-12-08 14:11] LABS: Microalbumi Creatinin Ratio Ur 86.2 ug/mg CR (<30); Microalbumin Urine Random 7.3 mg/dL (0-1.6)
== END ==
PROVIDERS: PCP Student in an Organized Health Care Education/Training Program; Referring Provider Student in an Organized Health Care Education/Training Program; Visit Provider Student in an Organized Health Care Education/Training Program
DX: D64.9 Anemia, unspecified (principal); E03.9 Hypothyroidism, unspecified; E11.69 Type 2 diabetes mellitus with other specified complication; E66.9 Obesity, unspecified
CPT/HCPCS: 36415; 82043; 82570; 83036; 83540; 83550; 84439; 84443; 85027

== ENCOUNTER → 2020-03-08 16:00 | Outpatient (CLI) | payer MEDICARE, OTHER, SELFPAY ==
[2019-03-19 12:43] VITALS: BMI 35.4
[2020-03-08 16:57] LABS: Hemoglobin A1C% w Est Avg Glu 7.1 % (4.0-6.0)
== END ==
PROVIDERS: PCP Student in an Organized Health Care Education/Training Program; Referring Provider Student in an Organized Health Care Education/Training Program; Visit Provider Student in an Organized Health Care Education/Training Program
DX: E11.69 Type 2 diabetes mellitus with other specified complication (principal); E66.9 Obesity, unspecified
CPT/HCPCS: 36415; 83036

== ENCOUNTER → 2020-05-01 16:42 | Outpatient (CLI) | payer MEDICARE, OTHER, SELFPAY ==
[2019-03-19 12:43] VITALS: BMI 35.4
[2020-05-01 17:36] LABS: Hemoglobin A1C% w Est Avg Glu 6.9 % (4.0-6.0)
== END ==
PROVIDERS: PCP Student in an Organized Health Care Education/Training Program; Referring Provider Student in an Organized Health Care Education/Training Program; Visit Provider Student in an Organized Health Care Education/Training Program
DX: E11.69 Type 2 diabetes mellitus with other specified complication (principal); E66.9 Obesity, unspecified
CPT/HCPCS: 36415; 83036

== ENCOUNTER → 2020-05-25 13:11 | Outpatient (CLI) | payer MEDICARE, OTHER, SELFPAY ==
[2019-03-19 12:43] VITALS: BMI 35.4
[2020-05-25] MEDS: COVID-19 VACC #1, MRNA(MOD) 100 MCG/0.5 ML VIAL IM (13:19)
== END ==
PROVIDERS: PCP Student in an Organized Health Care Education/Training Program; Visit Provider Internal Medicine
DX: Z23 Encounter for immunization (principal)
CPT/HCPCS: 0011A; 91301

== ENCOUNTER → 2020-06-22 16:06 | Outpatient (CLI) | payer MEDICARE, OTHER, SELFPAY ==
[2019-03-19 12:43] VITALS: BMI 35.4
[2020-06-22] MEDS: COVID-19 VACC #2, MRNA(MOD) 100 MCG/0.5 ML VIAL IM (16:10)
== END ==
PROVIDERS: PCP Student in an Organized Health Care Education/Training Program; Visit Provider Internal Medicine
DX: Z23 Encounter for immunization (principal)
CPT/HCPCS: 0012A; 91301

== ENCOUNTER → 2020-10-27 09:28 | Outpatient (CLI) | payer MEDICARE, OTHER, SELFPAY ==
[2019-03-19 12:43] VITALS: BMI 35.4
[2020-10-27 10:22] LABS: Blood Urea Nitrogen 22 mg/dL (9-20); Estimated Glomerular Filt Rate > 60.0 mL/min (>60)
[2020-10-27 10:25] LABS: Hemoglobin A1C% w Est Avg Glu 8.3 % (4.0-6.0)
[2020-10-27 10:50] LABS: Creatinine Urine Random 70.6 mg/dL
[2020-10-27 10:57] LABS: Microalbumin Urine Random 5.3 mg/dL (0-1.6)
== END ==
PROVIDERS: PCP Student in an Organized Health Care Education/Training Program; Referring Provider Student in an Organized Health Care Education/Training Program; Visit Provider Student in an Organized Health Care Education/Training Program
DX: E11.69 Type 2 diabetes mellitus with other specified complication (principal); E66.9 Obesity, unspecified; N28.9 Disorder of kidney and ureter, unspecified
CPT/HCPCS: 36415; 82043; 82565; 82570; 83036; 84520

== ENCOUNTER → 2021-02-25 16:01 | Outpatient (CLI) | payer MEDICARE, OTHER, SELFPAY ==
[2019-03-19 12:43] VITALS: BMI 35.4
[2021-02-25 17:02] LABS: Hemoglobin A1C% w Est Avg Glu 7.8 % (4.0-6.0)
[2021-02-25 17:23] LABS: BUN Creatinine Ratio 22.8 (6-22); Blood Urea Nitrogen 21 mg/dL (9-20); Estimated Glomerular Filt Rate > 60.0 mL/min (>60)
== END ==
PROVIDERS: PCP Student in an Organized Health Care Education/Training Program; Referring Provider Student in an Organized Health Care Education/Training Program; Visit Provider Student in an Organized Health Care Education/Training Program
DX: E11.69 Type 2 diabetes mellitus with other specified complication (principal); E66.9 Obesity, unspecified; I10 Essential (primary) hypertension
CPT/HCPCS: 36415; 82565; 83036; 84520

== ENCOUNTER → 2021-04-30 11:16 | Outpatient (CLI) | payer MEDICARE, OTHER, SELFPAY ==
[2019-03-19 12:43] VITALS: BMI 35.4
[2021-04-30 12:42] LABS: Hemoglobin A1C% w Est Avg Glu 8.8 % (4.0-6.0)
[2021-04-30 13:04] LABS: BUN Creatinine Ratio 20.8 (6-22); Blood Urea Nitrogen 20 mg/dL (9-20); Calcium 9.7 mg/dL (8.4-10.2); Carbon Dioxide 28 mmol/L (22-32); Chloride 99 mmol/L (98-107); Cholesterol 170 mg/dL (140-199); Estimated Glomerular Filt Rate > 60.0 mL/min (>60); Glucose 289 mg/dL (80-110); HDL Cholesterol 47 mg/dL (40-60); HEMOLYSIS < 15 (0-50); LDL Cholesterol Calculated 80 mg/dL (<100); Potassium 4.9 mmol/L (3.4-5.1); Sodium 135 mmol/L (137-145); Triglycerides 215 mg/dL (35-150)
[2021-04-30 13:27] LABS: TSH w/ Reflex to FT4 3.59 uIU/mL (0.47-4.68)
[2021-04-30 15:34] LABS: Creatinine Urine Random 75.3 mg/dL
[2021-04-30 17:02] LABS: Microalbumi Creatinin Ratio Ur 873.8 ug/mg CR (<30); Microalbumin Urine Random 65.8 mg/dL (0-1.6)
== END ==
PROVIDERS: PCP Student in an Organized Health Care Education/Training Program; Referring Provider Student in an Organized Health Care Education/Training Program; Visit Provider Student in an Organized Health Care Education/Training Program
DX: E11.69 Type 2 diabetes mellitus with other specified complication (principal); E78.5 Hyperlipidemia, unspecified; I10 Essential (primary) hypertension; E03.9 Hypothyroidism, unspecified; E66.9 Obesity, unspecified
CPT/HCPCS: 36415; 80048; 80061; 82043; 82570; 83036; 84443

== ENCOUNTER 2021-06-15 17:55 | Emergency (ER) | payer MEDICARE, OTHER, SELFPAY ==
[2019-03-19 12:43] VITALS: BMI 35.4
[2021-06-15] VITALS (46 sets, daily range): BP systolic 157–250; BP diastolic 66–111; PULSE 66–139; RESP 10–28; TEMP 36.7; O2SAT 94–99; BMI 36.6
--- NOTE | 2021-06-15 18:04 | DI.RAD.S_ITS ---
PROCEDURE: XR CHEST 1V INDICATIONS: chest pain TECHNIQUE: One view of the chest was acquired. COMPARISON: [facility], CR, XR CHEST 1V, 09/29/2018, 9:13. FINDINGS: Surgical changes and devices: Median sternotomy wires are present and appear intact. Stable postsurgical changes of prior CABG Lungs and pleura: Lungs are clear. No pleural effusions or pneumothorax. Mediastinum: Mediastinal contours appear normal. Heart size is normal. Bones and chest wall: No suspicious bony lesions. Overlying soft tissues appear unremarkable. IMPRESSION: Chest without acute cardiopulmonary abnormalities. No focal airspace disease. Dictated by: Wes Dimas M.D. on 06/15/2021 at 19:08 Approved by: Wes Dimas M.D. on 06/15/2021 at 19:08
[2021-06-15 18:11] LABS: Add Manual Diff / Slide Review NO; Basophils Absolute Auto 0 /uL (0-100); Basophils Percent Auto 0.5 % (0-2); Eosinophils Absolute Auto 100 /uL (0-450); Eosinophils Percent Auto 1.4 % (2-4); Hematocrit 40.1 % (41-53); Hemoglobin 13.9 g/dL (13.5-17.5); Lymphocytes Absolute Auto 1800 /uL (1100-4500); Lymphocytes Percent Auto 27.9 % (25-40); Mean Corpuscular HGB Conc 34.6 % (30-36); Mean Corpuscular Hemoglobin 31.7 PG (26-34); Mean Corpuscular Volume 91.7 fL (80-100); Monocytes Absolute Auto 500 /uL (0-900); Monocytes Percent Auto 7.1 % (3-14); Neutrophils Absolute Auto 4100 /uL (1500-7000); Neutrophils Percent Auto 63.1 % (50-75); Platelet Count 151 X10^3/uL (150-400); Red Blood Cell Count 4.37 X10^6/uL (4.5-5.9); Red Cell Distribution Width 13.7 % (11.6-14.8); White Blood Cell Count 6.6 X10^3/uL (4.5-11.0)
[2021-06-15 18:14] LABS: Appearance Urine UA CLEAR; Bilirubin Urine UA NEGATIVE (NEGATIVE); Color Urine UA YELLOW; Glucose Urine UA TRACE g/dL (Negative); Ketones Urine UA TRACE (NEGATIVE); Leukocyte Esterase Urine UA NEGATIVE (NEGATIVE); Nitrite Urine UA NEGATIVE (Negative); Occult Blood Urine UA 2+ (Negative); Protein Urine UA 1+ (Negative); Specific Gravity Urine UA 1.015 (1.000-1.035); pH Urine UA 7.5 (4.5-8.0)
[2021-06-15 18:23] LABS: Bacteria Urine None Seen; Culture Indicated Urine Cult Not Indicated; RBC Urine 5-10/HPF (0-5/HPF); WBC Urine None Seen (0-5/HPF)
--- NOTE | 2021-06-15 18:23 | ED_ITS ---
HPI - Chest Pain General Chief Complaint: Chest Pain Stated Complaint: Chest pain Time Seen by Provider: 06/15/21 17:55 Source: EMS Mode of arrival: EMS History of Present Illness HPI narrative: Patient is a 70-year-old male with history of coronary artery disease hypertension hyperlipidemia diabetes presenting today with discomfort. He said last night he felt his heart racing for about 10 minutes. He has remote history of atrial fibrillation only after his CABG many years ago but no recurrence. Today and this evening he was putting chicken in to a hand to take it out to the [facility] when he got sweaty diaphoretic had some chest discomfort. He called dull and aching in the center of his chest without any radiation. He denies shortness of breath or any nausea. Symptoms are now gone and he has no pain. His heart is irregular he has frequent PVCs. 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 He denies any shortness of breath exertion no peripheral edema he denies orthopnea fever or other symptoms. Related Data Home Medications Medication Instructions Recorded Confirmed aspirin 81 mg tablet,delayed 81 mg PO DAILY 10/09/19 05/21/21 release cyanocobalamin (vitamin B-12) 500 mcg PO DAILY tab 10/12/19 05/21/21 1,000 mcg tablet Respironics Dreamstation BIPAP #1 ea 05/04/20 05/21/21 Previous Rx's Medication Instructions Recorded pantoprazole 40 mg tablet,delayed 40 mg PO BID #180 tab 04/17/20 release atorvastatin 40 mg tablet 40 mg PO DAILY #90 tab 09/04/20 metoprolol tartrate 50 mg tablet 50 mg PO BID #180 tab 01/14/21 levothyroxine 125 mcg tablet 125 mcg PO DAILY #90 tab 04/22/21 lisinopril 5 mg tablet 5 mg PO DAILY #90 tab 04/22/21 amlodipine 10 mg tablet 10 mg PO DAILY #90 tab 05/30/21 blood sugar diagnostic (Blood #400 ea 05/31/21 Glucose Test) insulin aspart U-100 100 unit/mL 1 sliding scale dose SUBCUT QAC 05/31/21 (3 mL) subcutaneous pen #15 ml insulin aspart U-100 100 unit/mL See Rx Instructions SUBCUT QAC #15 05/31/21 (3 mL) subcutaneous pen ml MDD 39 units insulin glargine 100 unit/mL (3 48 unit (0.48 mL) SUBCUT DAILY #66 05/31/21 mL) subcutaneous pen ml lancets 30 gauge #400 ea 05/31/21 pen needle, diabetic 31 gauge x #400 ea 05/31/21 5/16 metformin 850 mg tablet 850 mg PO .TIDCC #270 tab 06/11/21 Allergies Allergy/AdvReac Type Severity Reaction Status Date / Time acetaminophen Allergy Severe ANAPHYLAXIS Verified 06/15/21 18:03 codeine Allergy Severe ANAPHYLAXIS Verified 06/15/21 18:03 silicone Allergy Severe Swelling, Verified 06/15/21 18:03 rash adhesive tape AdvReac Intermediate blisters, Verified 06/15/21 18:03 takes skin off Review of Systems Review of Systems Narrative: GENERAL: Denies chills, fatigue, malaise, fever, sweats, travel HEENT: Denies sinus pain, ear pain, sore throat, difficulty swallowing, neck pain RESPIRATORY: Denies dyspnea, cough, wheezing, hemoptysis, sputum. CARDIOVASCULAR: See HPI GASTROINTESTINAL: Denies nausea, vomiting, abdominal pain, diarrhea, co nstipation, melena. : Denies dysuria, frequency, incontinence, hematuria, urinary retention, flank pain. MUSCULOSKELETAL: Denies weakness, joint pain, or bony pain SKIN: No rash, no erythema, no pruritus NEUROLOGIC: Denies weakness, dizziness, headache, numbness, change in speech, confusion PSYCHIATRIC: No concerning psychosocial issues. 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 Myocardial infarction Nail avulsion Obesity (BMI 30-39.9) Open fracture of distal phalanx of thumb Prostate cancer Puckering of macula, bilateral Restless legs syndrome (RLS) SBO (small bowel obstruction) Sleep apnea Vision disorder Surgical History (Updated 05/26/21 @ 12:17 by Rafat Rosas MD) Anesthesia Corneal transplant status H/O umbilical hernia repair History of coronary artery bypass graft x 2 (~2016) History of intestinal surgery History of knee surgery Hx laparoscopic cholecystectomy Hx of heart artery stent Hx of umbilical hernia repair Status post rotator cuff surgery Family History (Updated 10/05/19 @ 20:20 by Delmy Minaya) Father Hypertension Heart disease Mother Stroke Cancer Social History marital status: household members: spouse lives independently: Yes caregiver/support person: No 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 Smoking Status: Former smoker alcohol intake: current substance use type: does not use Smoking Status: Former smoker alcohol intake frequency: 3 or more drinks per day Substance Use Type: does not use Exam Initial Vital Signs Initial Vital Signs: Vital Signs Pulse Rate 111 H 06/15/21 18:00 Respiratory Rate 18 06/15/21 18:00 Blood Pressure 189/89 H 06/15/21 18:00 Pulse Oximetry 98 06/15/21 18:00 GENERAL: Alert well-appearing 70-year-old male HEENT: Head atraumatic,EOMI, pupils reactive, face symmetric, [moist] mucous membranes CARDIOVASCULAR: Regular rate and rhythm without murmurs, rubs or gallops. RESPIRATORY: Breath sounds equal bilaterally, no wheezes rales or rhonchi. ABDOMEN: Soft, nontender. Normoactive bowel sounds all 4 quadrants. No guarding or rebound. : No CVA tenderness EXTREMITIES: Normal range of motion, no clubbing or edema. Neurovascularly intact NEUROLOGICAL: Alert and oriented x4.Normal gait and speech. Cranial nerves II through XII grossly intact. SKIN: Warm, dry, no laceration, no petechiae, no rashes or lesions. Course Orders Ordered: ED Orders 06/15/21 18:04 XR chest 1V Stat EKG-12 Lead Stat 06/15/21 18:07 Complete Blood Count AUTO DIFF Stat Comprehensive Metabolic Panel Stat Lipase Stat Magnesium Stat Troponin & CK Cardiac Panel Stat Urinalysis and Microscopic Stat 06/15/21 19:36 COVID19 -Nasal swab/Pre-Proc Stat 06/15/21 20:05 Troponin & CK Cardiac Panel Stat 06/15/21 21:53 CT angio chest abdomen pelvis Stat Discontinued Medications Heparin Sodium (Porcine) (Heparin 5,000 Unit/Ml Vial) 5,000 unit IV NOW ONE Stop: 06/15/21 21:03 Last Admin: 06/15/21 21:26 Dose: 5,000 unit Documented by: ANDRE Heparin Sodium/Dextrose (Heparin Drip) 25,000 unit in 500 mls @ 20 mls/hr IV CONT JUANA; Protocol Last Titration: 06/16/21 00:32 Dose: 0 units/hr, 0 mls/hr Documented by: Titration: 06/15/21 22:00 Dose: 0 units/hr, 0 mls/hr Documented by: Admin: 06/15/21 21:26 Dose: 1,000 units/hr, 20 mls/hr Documented by: ANDRE Nitroglycerin (Nitroglycerin) 50 mg in 250 mls @ 1.5 mls/hr IV TITRATE JUANA; Protocol Last Admin: 06/16/21 00:07 Dose: Not Given Documented by: ANDRE Labetalol HCl (Labetalol 20 Mg/4 Ml Syringe) 10 mg IV NOW ONE Stop: 06/15/21 21:03 Last Admin: 06/15/21 21:25 Dose: 10 mg Documented by: ANDRE Vital Signs Vital signs: Vital Signs - 8 hr 06/15/21 18:00 06/15/21 18:01 06/15/21 18:05 Temperature 98.0 F Pulse Rate 111 H 139 H 120 H Respiratory Rate 18 18 18 Blood Pressure 189/89 H 189/89 H 183/81 H Pulse Oximetry 98 97 98 06/15/21 18:11 06/15/21 18:20 06/15/21 18:30 Temperature Pulse Rate 88 122 H 113 H Respiratory Rate 23 19 20 Blood Pressure 183/84 H 178/100 H Pulse Oximetry 98 95 98 06/15/21 18:31 06/15/21 18:41 06/15/21 18:51 Temperature Pulse Rate 98 H 70 86 Respiratory Rate 19 20 15 Blood Pressure 212/91 H 168/73 H 189/81 H Pulse Oximetry 98 96 97 06/15/21 19:00 06/15/21 19:01 06/15/21 19:11 Temperature Pulse Rate 86 75 67 Respiratory Rate 16 13 Blood Pressure 161/92 H 175/73 H Pulse Oximetry 95 96 97 06/15/21 19:21 06/15/21 19:30 06/15/21 19:31 Temperature Pulse Rate 67 75 74 Respiratory Rate 13 19 14 Blood Pressure 173/74 H 161/71 H Pulse Oximetry 98 94 97 06/15/21 19:41 06/15/21 19:51 06/15/21 20:00 Temperature Pulse Rate 81 79 68 Respiratory Rate 18 13 15 Blood Pressure 196/84 H 207/84 H Pulse Oximetry 95 96 97 06/15/21 20:01 06/15/21 20:10 06/15/21 20:21 Temperature Pulse Rate 72 66 69 Respiratory Rate 11 L 15 12 Blood Pressure 191/84 H 176/66 H 199/81 H Pulse Oximetry 97 97 97 06/15/21 20:30 06/15/21 20:31 06/15/21 20:41 Temperature Pulse Rate 69 70 70 Respiratory Rate 10 L 11 L 11 L Blood Pressure 198/106 H 185/84 H Pulse Oximetry 96 97 97 06/15/21 20:51 06/15/21 21:00 06/15/21 21:21 Temperature Pulse Rate 73 74 72 Respiratory Rate 11 L 10 L 13 Blood Pressure 208/85 H 206/93 H Pulse Oximetry 97 97 97 06/15/21 21:25 06/15/21 21:30 06/15/21 21:31 Temperature Pulse Rate 93 H 67 74 Respiratory Rate 19 17 Blood Pressure 206/93 H 196/84 H Pulse Oximetry 98 98 06/15/21 21:51 06/15/21 21:53 06/15/21 22:00 Temperature Pulse Rate 70 70 69 Respiratory Rate 17 28 H 13 Blood Pressure 211/92 H 207/101 H Pulse Oximetry 06/15/21 22:01 06/15/21 22:09 06/15/21 22:11 Temperature Pulse Rate 73 84 Respiratory Rate 12 18 Blood Pressure 196/85 H 196/85 H 194/81 H Pulse Oximetry 06/15/21 22:25 06/15/21 22:28 06/15/21 22:30 Temperature Pulse Rate 100 H 76 71 Respiratory Rate 17 14 14 Blood Pressure 250/111 H 191/89 H Pulse Oximetry 97 99 98 06/15/21 22:31 06/15/21 22:41 06/15/21 22:51 Temperature Pulse Rate 71 73 74 Respiratory Rate 12 14 12 Blood Pressure 162/72 H 171/71 H 163/85 H Pulse Oximetry 98 99 98 06/15/21 23:00 06/15/21 23:01 06/15/21 23:12 Temperature Pulse Rate 72 70 69 Respiratory Rate 17 15 16 Blood Pressure 157/70 H Pulse Oximetry 97 98 98 06/15/21 23:21 Temperature Pulse Rate 68 Respiratory Rate 18 Blood Pressure 184/81 H Pulse Oximetry 97 MDM - Chest Pain Lab Data Result diagrams: 06/15/21 18:07 06/15/21 18:07 Labs: Lab Results 06/15/21 06/15/21 06/15/21 Range/Units 18:07 18:07 18:07 WBC 6.6 (4.5-11.0) X10^3/uL RBC 4.37 L (4.5-5.9) X10^6/uL Hgb 13.9 (13.5-17.5) g/dL Hct 40.1 L (41-53) % MCV 91.7 (80-100) fL MCH 31.7 (26-34) PG MCHC 34.6 (30-36) % RDW 13.7 (11.6-14.8) % Plt Count 151 (150-400) X10^3/uL Neut % (Auto) 63.1 (50-75) % Lymph % (Auto) 27.9 (25-40) % [place] % (Auto) 7.1 (3-14) % Eos % (Auto) 1.4 L (2-4) % Baso % (Auto) 0.5 (0-2) % Neut # (Auto) 4100 (8653-5466) /uL Lymph # (Auto) 1800 (8041-5701) /uL [place] # (Auto) 500 (0-900) /uL Eos # (Auto) 100 (0-450) /uL Baso # (Auto) 0 (0-100) /uL Sodium 137 (137-145) mmol/L Potassium 4.3 (3.4-5.1) mmol/L Chloride 102 (98-107) mmol/L Carbon Dioxide 29 (22-32) mmol/L BUN 23 H (9-20) mg/dL Creatinine 1.10 (0.66-1.25) mg/dL Estimated GFR > 60.0 (>60) mL/min BUN/Creatinine Ratio 20.9 (6-22) Glucose 218 H (80-110) mg/dL Calcium 9.3 (8.4-10.2) mg/dL Magnesium 1.2 L (1.6-2.3) mg/dL Total Bilirubin 0.8 (0.2-1.3) mg/dL AST 36 (17-59) IU/L ALT 30 (<50) IU/L Alkaline Phosphatase 71 (38-126) U/L Total Creatine Kinase 471 H (55-170) U/L CK-MB (CK-2) 14.30 H (<2.37) ng/mL CK-MB (CK-2) Rel Index 3.0 (1.5-5.0) % Troponin I 0.045 H (0.01-0.034) ng/mL Total Protein 6.8 (6.3-8.2) g/dL Albumin 4.2 (3.5-5.0) g/dL Globulin 2.6 (1.7-4.1) g/dL Albumin/Globulin Ratio 1.6 (1.0-2.8) Lipase 34 (23-300) U/L Urine Color Yellow Urine Appearance Clear Urine pH 7.5 (4.5-8.0) Ur Specific Dawson 1.015 (1.000-1.035) Urine Protein 1+ H (Negative) Urine Glucose (UA) Trace H (Negative) g/dL Urine Ketones Trace H (NEGATIVE) Urine Occult Blood 2+ H (Negative) Urine Nitrate Negative (Negative) Urine Bilirubin Negative (NEGATIVE) Urine Urobilinogen 1.0 (0.2) E.U./dL Ur Leukocyte Esterase Negative (NEGATIVE) Urine RBC 5-10/hpf H (0-5/HPF) Urine WBC None seen (0-5/HPF) Urine Bacteria None seen (None) Ur Culture Indicated? Cult not indicated SARS-CoV-2 (PCR) (Negative) 06/15/21 06/15/21 Range/Units 19:36 20:05 WBC (4.5-11.0) X10^3/uL RBC (4.5-5.9) X10^6/uL Hgb (13.5-17.5) g/dL Hct (41-53) % MCV (80-100) fL MCH (26-34) PG MCHC (30-36) % RDW (11.6-14.8) % Plt Count (150-400) X10^3/uL Neut % (Auto) (50-75) % Lymph % (Auto) (25-40) % [place] % (Auto) (3-14) % Eos % (Auto) (2-4) % Baso % (Auto) (0-2) % Neut # (Auto) (6329-6638) /uL Lymph # (Auto) (2109-7902) /uL [place] # (Auto) (0-900) /uL Eos # (Auto) (0-450) /uL Baso # (Auto) (0-100) /uL Sodium (137-145) mmol/L Potassium (3.4-5.1) mmol/L Chloride (98-107) mmol/L Carbon Dioxide (22-32) mmol/L BUN (9-20) mg/dL Creatinine (0.66-1.25) mg/dL Estimated GFR (>60) mL/min BUN/Creatinine Ratio (6-22) Glucose (80-110) mg/dL Calcium (8.4-10.2) mg/dL Magnesium (1.6-2.3) mg/dL Total Bilirubin (0.2-1.3) mg/dL AST (17-59) IU/L ALT (<50) IU/L Alkaline Phosphatase (38-126) U/L Total Creatine Kinase 386 H (55-170) U/L CK-MB (CK-2) 11.70 H (<2.37) ng/mL CK-MB (CK-2) Rel Index 3.0 (1.5-5.0) % Troponin I 0.065 H (0.01-0.034) ng/mL Total Protein (6.3-8.2) g/dL Albumin (3.5-5.0) g/dL Globulin (1.7-4.1) g/dL Albumin/Globulin Ratio (1.0-2.8) Lipase (23-300) U/L Urine Color Urine Appearance Urine pH (4.5-8.0) Ur Specific Dawson (1.000-1.035) Urine Protein (Negative) Urine Glucose (UA) (Negative) g/dL Urine Ketones (NEGATIVE) Urine Occult Blood (Negative) Urine Nitrate (Negative) Urine Bilirubin (NEGATIVE) Urine Urobilinogen (0.2) E.U./dL Ur Leukocyte Esterase (NEGATIVE) Urine RBC (0-5/HPF) Urine WBC (0-5/HPF) Urine Bacteria (None) Ur Culture Indicated? SARS-CoV-2 (PCR) Negative (Negative) Imaging Data Chest x-ray: Radiologist's Impression: PROCEDURE:? XR CHEST 1V ? INDICATIONS:? chest pain ? TECHNIQUE:? One view of the chest was acquired.? ? COMPARISON:? [facility], CR, XR CHEST 1V, 09/29/2018, 9:13. ? FINDINGS:? ? Surgical changes and devices: ? Median sternotomy wires are present and appear intact.? Stable postsurgical changes of prior CABG ? Lungs and pleura:? Lungs are clear.? No pleural effusions or pneumothorax.? ? Mediastinum:? Mediastinal contours appear normal.? Heart size is normal.? ? Bones and chest wall:? No suspicious bony lesions.? Overlying soft tissues appear unremarkable.? ? IMPRESSION:? Chest without acute cardiopulmonary abnormalities.? No focal airspace disease. ? ? Dictated by: Wes Dimas M.D. on 06/15/2021 at 19:08 ? ? Approved by: Wes Dimas M.D. on 06/15/2021 at 19:08? CT scan - chest: Radiologist's Impression: PROCEDURE:? CT ANGIO CHEST ABDOMEN PELVIS ? INDICATIONS:? HTN with + trop and chest pain ? TECHNIQUE:? Precontrast 5 mm thick sections acquired from the lung apices to the iliac crests.? After the administration of intravenous contrast, 2.5 mm thick sections again acquired from the lung apices to the iliac crests.? Maximum intensity projection (MIP) oblique sagittal and coronal reformats were then acquired.? For radiation dose reduction, the following was used:? automated exposure control.? ? COMPARISON:? None. ? FINDINGS:? Image quality:? Excellent.? ? AORTA:? Intramural hematoma:? Absent Maximum hematoma thickness:? Not applicable Focal contrast enhancement:? Intramural blood pool (< 2 mm neck or imperceptible communication with aortic lumen):? Absent .? Ulcer-like projection (broad communication with aortic lumen > 3 mm):? Absent . ? Dissection:? Absent [place] classification:? Not applicable Maximum aortic diameter:? Normal aortic caliber Periaortic hematoma:? Absent .? ? CHEST:? Lungs and pleura:? No acute airspace opacities.? No pleural effusions or pneumothorax.? Central and peripheral airways are patent and normal in caliber.? ? Mediastinum:? Heart size is normal.? There are relatively prominent coronary artery calcifications and also atherosclerotic calcifications involving the aorta and its main tributaries No pericardial effusion.? No mediastinal or hilar adenopathy by size criteria.? Central pulmonary arteries are normal in size.? Esophagus is normal in caliber.? No hiatal hernias.? ? Bones and chest wall:? No axillary adenopathy by size criteria.? Thyroid gland appears normal where well seen .? No suspicious bony lesions.? No vertebral body compression fractures.? ? ? ABDOMEN:? Vasculature:? Celiac trunk and mesenteric arteries are patent.? Renal arteries are also patent.? ? Solid organs:? Liver is normal in size and enhancement.? Gallbladder is surgically absent, with associated mild pneumobilia at the liver .? Biliary system is non dilated.? Pancreas enhances normally.? Spleen is normal in size and enhancement.? No adrenal nodules.? Both kidneys are normal in size and enhancement, without hydronephrosis.? ? Peritoneum and bowel:? No free fluid or air.? Bowel loops are normal in caliber and wall thickness.? ? Nodes and vessels:? No retroperitoneal or mesenteric adenopathy by size criteria.? Inferior vena cava is normal in morphology.? Atherosclerotic calcification involves the aorta and its main tributaries, without evidence of aneurysm or dissection. ? Miscellaneous:? No ventral hernias.? ? ? PELVIS:? Genitourinary:? Bladder wall thickness is normal.? ? Miscellaneous:? No inguinal hernias or adenopathy.? No ventral hernias.? ? Bones:? No suspicious bony lesions.? No vertebral body compression fractures.? ? ? IMPRESSION:? Relatively prominent atherosclerotic disease involving the coronary arteries, and to a lesser degree the aorta and its main tributaries.? No aneurysm or dissection is associated. ? Prior cholecystectomy.? No acute disease over the abdomen or pelvis is found. ? Dictated by: Charles Sumner M.D. on 06/15/2021 at 22:40 ? ? ECG Data Interpretation: EKG 1. Rhythm rate 82 LA interval 185 PVCs noted PACs also noted first-degree AV block right bundle branch block new from previous EKG. Prior EKG from does show an acute inferior STEMI EKG 2. Rate 82 with PVCs irregular symmetric prior without ST changes MDM Narrative Medical decision making narrative: Patient has been chest pain-free while in the emergency department with symptoms and history started concerning for coronary syndrome. Initial troponin indeterminate at 0.045 and the 2nd 1 is rising at 0.065. Patient is empirically started on heparin drip he previously took aspirin prior to his arrival today. Pressure has started rising while in the emergency department. He is complaint with his medication and takes blood pressure medication only in the morning. He is asymptomatic. CT angio does not show any dissection. He is given labetalol 10 mg for blood pressure control which does seem to help blood pressure decreases into the 160s. [id number] Dr. Soto, cardiology at [facility] has been updated on patient's symptoms test results since patient does have hypertensive emergency rather than acute coronary syndrome and recommends decreasing blood pressure by 25% with goal systolic of a no 170s. He states does not need a heparin drip and is happy to have patient transferred and admitted to the hospitalist group [id number] Dr. Sifuentes, hospitalist happy self has been updated patient's symptoms cardiology results and is happy to accept patient. Does recommend nitroglycerin if blood pressure continues to be elevated Patient does not need nitroglycerin drip in the ED, Labetalol seems to have stabilized and helped. Critical Care Time Critical Care Time Critical Care Time: Yes Total Critical Care Time: 30 Attestation: The high probability of a clinically significant, sudden or life threatening deterioration of the [cardiovascular] system(s) required my full and direct attention, intervention and personal management. The aggregate critical care time was 30 minutes. This time is in addition to time spent performing reported procedures but includes the following: [x] Data Review and interpretation [x] Patient assessment and monitoring of vital signs [x] Documentation [x] Medication orders and management Discharge Plan Departure Patient Disposition: [facility] Clinical Impression: Hypertensive emergency, ACS (acute coronary syndrome) Prescriptions: No Action cyanocobalamin (vitamin B-12) 1,000 mcg tablet 500 mcg PO DAILY 0RF pantoprazole 40 mg tablet,delayed release (DR/EC) 40 mg PO BID Qty: 180 1RF atorvastatin 40 mg tablet 40 mg PO DAILY Qty: 90 2RF metoprolol tartrate 50 mg tablet 50 mg PO BID Qty: 180 2RF levothyroxine 125 mcg tablet 125 mcg PO DAILY Qty: 90 1RF lisinopril 5 mg tablet 5 mg PO DAILY Qty: 90 1RF amlodipine 10 mg tablet 10 mg PO DAILY Qty: 90 3RF metformin 850 mg tablet 850 mg PO .TIDCC Qty: 270 1RF aspirin 81 mg tablet,delayed release (DR/EC) 81 mg PO DAILY 0RF insulin glargine 100 unit/mL (3 mL) insulin pen 48 unit subcut DAILY Qty: 66 2RF (DME) Blood Glucose Test Strip See Rx Instructions .Route Qty: 400 3RF Rx Instructions: Use to check blood sugar 4 times daily (DME) pen needle, diabetic 31 gauge x 5/16 needle See Rx Instructions .Route Qty: 400 3RF Rx Instructions: Use to inject insulin 4 times daily (DME) lancets 30 gauge misc See Rx Instructions .Route Qty: 400 3RF Rx Instructions: Use to check blood sugar 4 times daily insulin aspart U-100 100 unit/mL (3 mL) insulin pen See Rx Instructions SUBCUT QAC MDD 39 units Qty: 15 6RF Rx Instructions: 8 units plus sliding scale dose SUBCUT before meals; insulin aspart U-100 100 unit/mL (3 mL) insulin pen 1 sliding scale dose SUBCUT QAC Qty: 15 0RF Rx Instructions: Blood Glucose (mg/dL)Sliding Scale dose Less than 70 Initiate HYPOglycemia Guidelines 70 ? 149 0 units 150 ? 199 2 units 200 ? 249 4 units 250 ? 299 6 units 300 ? 349 8 units 350 ? 400 10 units Over 400 12 units ? notify provider, and recheck blood sugar in 30 minutes. (DME) RespirEditlites Dreamstation BIPAP Qty: 1 0RF Dose Instruction: As directed Label Comments: IPAP:17, EPAP:9, PS:4-4 DME: Anthony Rx Instructions: As directed Referrals: Rafat Rosas MD [Primary Care Provider] -
[2021-06-15 18:26] LABS: Alanine Aminotransferase 30 IU/L (<50); Albumin 4.2 g/dL (3.5-5.0); Albumin Globulin Ratio 1.6 (1.0-2.8); Alkaline Phosphatase 71 U/L (38-126); Aspartate Aminotransferase 36 IU/L (17-59); BUN Creatinine Ratio 20.9 (6-22); Bilirubin Total 0.8 mg/dL (0.2-1.3); Blood Urea Nitrogen 23 mg/dL (9-20); Calcium 9.3 mg/dL (8.4-10.2); Carbon Dioxide 29 mmol/L (22-32); Chloride 102 mmol/L (98-107); Creatine Kinase 471 U/L (55-170); Estimated Glomerular Filt Rate > 60.0 mL/min (>60); Globulin 2.6 g/dL (1.7-4.1); Glucose 218 mg/dL (80-110); Lipase 34 U/L (23-300); Magnesium 1.2 mg/dL (1.6-2.3); Potassium 4.3 mmol/L (3.4-5.1); Sodium 137 mmol/L (137-145); Total Protein 6.8 g/dL (6.3-8.2)
[2021-06-15 18:37] LABS: Troponin I 0.045 ng/mL (0.01-0.034)
[2021-06-15 18:41] LABS: HEMOLYSIS 16 (0-50)
[2021-06-15 19:56] LABS: COVID19 -Nasal RAPID Negative (Negative)
[2021-06-15 20:21] LABS: Creatine Kinase 386 U/L (55-170)
[2021-06-15 20:34] LABS: Troponin I 0.065 ng/mL (0.01-0.034)
[2021-06-15] MEDS: LABETALOL 20 MG/4 ML SYRINGE 10 MG IV (21:25)
[2021-06-15] MEDS: HEPARIN 5,000 UNIT/ML VIAL 5000 UNIT IV (21:26)
[2021-06-15] MEDS: HEPARIN DRIP 25,000 UNIT/500 ML IV.SOLN 20 UNIT IV (21:26)
--- NOTE | 2021-06-15 21:53 | DI.CT.S_ITS ---
PROCEDURE: CT ANGIO CHEST ABDOMEN PELVIS INDICATIONS: HTN with + trop and chest pain TECHNIQUE: Precontrast 5 mm thick sections acquired from the lung apices to the iliac crests. After the administration of intravenous contrast, 2.5 mm thick sections again acquired from the lung apices to the iliac crests. Maximum intensity projection (MIP) oblique sagittal and coronal reformats were then acquired. For radiation dose reduction, the following was used: automated exposure control. COMPARISON: None. FINDINGS: Image quality: Excellent. AORTA: Intramural hematoma: Absent Maximum hematoma thickness: Not applicable Focal contrast enhancement: Intramural blood pool (< 2 mm neck or imperceptible communication with aortic lumen): Absent . Ulcer-like projection (broad communication with aortic lumen > 3 mm): Absent . Dissection: Absent Gibson classification: Not applicable Maximum aortic diameter: Normal aortic caliber Periaortic hematoma: Absent . CHEST: Lungs and pleura: No acute airspace opacities. No pleural effusions or pneumothorax. Central and peripheral airways are patent and normal in caliber. Mediastinum: Heart size is normal. There are relatively prominent coronary artery calcifications and also atherosclerotic calcifications involving the aorta and its main tributaries No pericardial effusion. No mediastinal or hilar adenopathy by size criteria. Central pulmonary arteries are normal in size. Esophagus is normal in caliber. No hiatal hernias. Bones and chest wall: No axillary adenopathy by size criteria. Thyroid gland appears normal where well seen . No suspicious bony lesions. No vertebral body compression fractures. ABDOMEN: Vasculature: Celiac trunk and mesenteric arteries are patent. Renal arteries are also patent. Solid organs: Liver is normal in size and enhancement. Gallbladder is surgically absent, with associated mild pneumobilia at the liver . Biliary system is non dilated. Pancreas enhances normally. Spleen is normal in size and enhancement. No adrenal nodules. Both kidneys are normal in size and enhancement, without hydronephrosis. Peritoneum and bowel: No free fluid or air. Bowel loops are normal in caliber and wall thickness. Nodes and vessels: No retroperitoneal or mesenteric adenopathy by size criteria. Inferior vena cava is normal in morphology. Atherosclerotic calcification involves the aorta and its main tributaries, without evidence of aneurysm or dissection. Miscellaneous: No ventral hernias. PELVIS: Genitourinary: Bladder wall thickness is normal. Miscellaneous: No inguinal hernias or adenopathy. No ventral hernias. Bones: No suspicious bony lesions. No vertebral body compression fractures. IMPRESSION: Relatively prominent atherosclerotic disease involving the coronary arteries, and to a lesser degree the aorta and its main tributaries. No aneurysm or dissection is associated. Prior cholecystectomy. No acute disease over the abdomen or pelvis is found. Dictated by: Charles Sumner M.D. on 06/15/2021 at 22:40 Approved by: Charles Sumner M.D. on 06/15/2021 at 22:45
--- NOTE | 2021-06-15 22:16 | PC.NURSE ---
Heparin drip stopped per verbal order Dr Casper
--- NOTE | 2021-06-15 23:43 | PC.NURSE ---
Nitro drip held due to BP reading at goal (SPP goal ~[address] Casper.) BP currently 174/79, pt reports he remains pain-free.
--- NOTE | 2021-06-16 00:12 | PC.NURSE ---
Attempted to call report to Melinda at [facility] [phone], she asked me to call back in 15 minutes.
== END 2021-06-16 00:15 | disposition short-term general hospital (02) ==
PROVIDERS: Emergency Provider Emergency Medicine; PCP Student in an Organized Health Care Education/Training Program
DX: I16.1 Hypertensive emergency (principal); I10 Essential (primary) hypertension; I24.9 Acute ischemic heart disease, unspecified; Z95.1 Presence of aortocoronary bypass graft; Z87.891 Personal history of nicotine dependence; Z20.822 Contact with and (suspected) exposure to COVID-19
CPT/HCPCS: 36415; 71045; 71275; 74174; 80053; 81001; 82550; 82553; 83690; 83735; 84484; 85025; 87635; 93005; 93010; 96365; 96375; 99284; 99291; C9803; J1644; Q9967

== ENCOUNTER → 2021-07-16 15:04 | Outpatient (CLI) | payer MEDICARE, OTHER, SELFPAY ==
[2019-03-19 12:43] VITALS: BMI 35.4
--- NOTE | 2021-07-18 16:16 | DIAB.INIT ---
Addendum entered by Mayra Mcintyre 07/29/21 13:27: LVM today to check in on how Julio César's goals are going. Will discuss when he calls back. Original Note: Initial Diabetes Education Assessment Name: Grant Lowery (Julio César) Date: 07/18/21 Time: 309-415p Dx: Type II Diabetes Provider: Alison Julio César presents today for initial diabetes education visit. Reports having Dm since 1986 or 1987. Shortly after father . 2020 was taking jardiance was very expensive. Feels the glipizide did not work at all. Only taking metformin 850 BID. 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 Taking Basalglar 48 u in the morning. Has had 3 x DE, last one was one month ago. Has not made any diet changes. Reports being on then off the wagon with food. Also endorses PMH of excessive ETOH. Was drinking 8-10oz spirits or 1 bottle of wine each night prior to last DE. States he has cut the spirits intake in half to 4-5oz daily. Uses this as a relaxation source. Also endorses poor sleep, likely exacerbated by ETOH intake. Has tried melatonin and CBD, neither effective. Also endorses excessive sweats at night, may be r/t ETOH intake. Could be BG changes. States he has a habit of eating fast due to work hx. Eats distracted with TV or reading daily. Feels his food is gone before he really notices or tastes it. Diet recall indicates high intake of Na. SF sports drinks are his main beverage. Other high Na foods: neri, canned soup, lunch meat. PMH HTN Anthropometrics: Ht: 6' Wt: 272# Physical Activity: Sedentary job. Was walking a few years ago. Getting a stent at the end of the month and open to exercising after. Self-Monitoring Blood Glucose: No meter today for review. States hopefully if he is home he will checks BG 4x per day fasting and pre meal. Following sliding scale, which results in 8-16u of Novolog. BG running, 125-250 mg/dL. He cant understand why. Last month >200 q morning. For many years, it has never been that high. 105-307 pre meal readings. States he can't detect a pattern Recent BG of 80, which crashed from 200 after taking novolog. symptoms: Shaky and sweaty Has happened twice and that was the lowest Treated: drank apple juice and felt better did not re check BG. Diabetes Medications: Metformin 850mg TID Glargine 48u (taking in morning, though states no instruction/preference from PCP) Novolog correction Pertinent Labs: HgA1c: 6.9% 04/2020 8.3% 10/2020 7.8% 02/2021 8.8% 04/2021 Past Medical History: (Last Updated 05/31/21 @ 14:43 by Cher Granados RN) Alcohol dependence (~2018) Atrial fibrillation Blindness of left eye Related to retinal detachment Cholecystitis with cholelithiasis Conjunctivitis, left eye Corneal transplant status Coronary artery disease Coronary artery disease chronic will monitor Diabetes Gastric ulcer Gout Gout, chronic not currently active H/O umbilical hernia repair History of coronary artery bypass graft x 2 (~2015) History of intestinal surgery Small intestine History of knee surgery Both knees Hx laparoscopic cholecystectomy Hx of heart artery stent Hx of umbilical hernia repair Hyperlipidemia Hyperlipidemia, Hypertension Hyperthyroidism 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 Provided appropriate educational handouts. Discussed the following topics: Completed intake assessment. Discussed barriers to care. HgA1c hx and potential goal Importance of self-monitoring, evaluating trends Sodium intake and impact on HTN, correlation of Dm and heart health General recommended servings for carbohydrates at meals and snacks Role of physical activity and following provider guidelines for safety Medication management Rule of 15 for lows Created SMART goals for patient self-care and success. Goals: Try taking glargine in the evening in order to titrate per FBG- new Take full dose of Metformin- new Read food labels for sodium (daily goal: 2000-2300mg and per meal: 300-500mg) Try eating dinner without the TV for one meal- new Follow-up: JACQUELINE CDCES follow-up in [address] will call pt in 2 weeks. Mayra Lungren, RDN, [facility] Certified Diabetes Care and Educational Technologist P: [phone] Thank you for this referral
== END ==
PROVIDERS: PCP Student in an Organized Health Care Education/Training Program; Referring Provider Student in an Organized Health Care Education/Training Program; Visit Provider Student in an Organized Health Care Education/Training Program
DX: E11.3291 Type 2 diabetes mellitus with mild nonproliferative diabetic retinopathy without macular edema, right eye (principal); Z79.4 Long term (current) use of insulin
CPT/HCPCS: G0108

== ENCOUNTER → 2021-08-22 15:23 | Outpatient (CLI) | payer MEDICARE, OTHER, SELFPAY ==
[2019-03-19 12:43] VITALS: BMI 35.4
--- NOTE | 2021-08-22 17:13 | DIAB.MNT ---
Initial Diabetes Medical Nutrition Therapy Assessment Name: Grant Lowery (Julio César) Date: 08/22/21 Time: 340-440pm Dx: Type II Diabetes Julio César presents today regarding T2DM care. States since our last visit he has had additional stent and another cardiac event. Today he tells me about his father's cardiac history which resulted in his passing in his 50s. Plans to begin cardiac rehab at . Since last visit states he has reduced Na intake by reducing gatorade intake. Still having condensed soup at lunch (3955-1770 mg Na per sitting). Does not like the taste of low sodium options. Diet recall indicates mostly moderate carb intake. Most meals 30-45g CHO. Cont to have BG elevations. Uses butter over margarine. Diet Recall: B: ham, eggs in butter +/- toast L: soup and sandwich ; soup ; 1c casserole ; D: salad with chicken or casserole ; steak with 1c potato ; canned soup +/- dessert Beverage: water, flavored sf polar drink, gatorade 5oz daily, coffee, ETOH x 4-5 oz +/- sf soda Anthropometrics: Ht: 6' Wt: 272# Physical Activity: Sedentary job. Has a friend offering to go to the gym weekly, he is considering. Use to walk the park by his work daily. Considering this as well. Self-Monitoring Blood Glucose: BG cont to be above target. Reports h/o taking 50u glargine BID + novolog. Also reports h/o taking lesser glargine (35u?) with jardiance and d/c novolog. Jardiance became too expensive. 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 Most readings elevated, bolded below. Seems insulin may need titration or additional agent, ie SGLT2i. FBG elevated indicating potential for increasing glargine. pre meal elevations indicating potential inadequate novolog coverage from previous meal. States he was considering increasing glargine to 60u HS. Date Pre Post Pre Post Pre Post HS 08/16 217 274 164 08/17 118 242 102 08/18 187 193 151 08/19 195 256 179 08/20 262 289 318 08/21 210 268 247 192 08/22 236 Diabetes Medications: Metformin 1275mg BID Glargine 45u HS Novolog correction Pertinent Labs: HgA1c: 6.9% 04/2020 8.3% 10/2020 7.8% 02/2021 8.8% 04/2021 Past Medical History: (Last Updated 05/31/21 @ 14:43 by Cher Granados RN) Alcohol dependence (~2018) Atrial fibrillation Blindness of left eye Related to retinal detachment Cholecystitis with cholelithiasis Conjunctivitis, left eye Corneal transplant status Coronary artery disease Coronary artery disease chronic will monitor Diabetes Gastric ulcer Gout Gout, chronic not currently active H/O umbilical hernia repair History of coronary artery bypass graft x 2 (~2016) History of intestinal surgery Small intestine History of knee surgery Both knees Hx laparoscopic cholecystectomy Hx of heart artery stent Hx of umbilical hernia repair Hyperlipidemia Hyperlipidemia, Hypertension Hyperthyroidism 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 Myocardial infarction Nail avulsion Obesity (BMI 30-39.9) Open fracture of distal phalanx of thumb Prostate cancer Puckering of macula, bilateral Restless legs syndrome (RLS) Improved on BiPAP SBO (small bowel obstruction) Patient is status post repair small bowel obstruction with lysis of adhesion recovering nicely Sleep apnea Obstructive Status post rotator cuff surgery Vision disorder 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 Provided appropriate educational handouts. Discussed the following topics: Heart health nutrition: sodium ; types of fat Impact of hyperglycemia on heart health Brainstormed ways to reduce sodium in meals and maintain satisfaction DM medication management: titrating insulin, SGLT2i, GLP1RA, cost considerations Role of physical activity plan and following provider guidelines for safety Created SMART goals for patient self-care and success. Goals: Try taking glargine in the evening in order to titrate per FBG- met Take full dose of Metformin- met Read food labels for sodium (daily goal: 2000-2300mg and per meal: 300-500mg)- in progress Try eating dinner without the TV for one meal- not discussed Gym pool 2x per week unless contraindicated- new Walk park 2x per week unless contraindicated- new Check soup labels at grocery store for lower Na options- new Consider glargine titration at this time- new Follow-up: JACQUELINE WIGGINS follow-up in 2-3 weeks Mayra Mcintyre RDN, [facility] Certified Diabetes Care and Lamp Cleaner P: [phone] Thank you for this referral
[2021-08-22 18:21] LABS: Creatinine Urine Random 187.4 mg/dL
[2021-08-22 18:22] LABS: Hemoglobin A1C% w Est Avg Glu 7.6 % (4.0-6.0)
[2021-08-22 18:23] LABS: BUN Creatinine Ratio 21.8 (6-22); Blood Urea Nitrogen 22 mg/dL (9-20); Estimated Glomerular Filt Rate > 60 mL/min (>60)
[2021-08-22 18:58] LABS: Microalbumi Creatinin Ratio Ur 160.6 ug/mg CR (<30); Microalbumin Urine Random 30.1 mg/dL (0-1.6)
== END ==
PROVIDERS: PCP Student in an Organized Health Care Education/Training Program; Referring Provider Student in an Organized Health Care Education/Training Program; Visit Provider Student in an Organized Health Care Education/Training Program
DX: E11.3291 Type 2 diabetes mellitus with mild nonproliferative diabetic retinopathy without macular edema, right eye (principal); Z79.4 Long term (current) use of insulin; Z79.84 Long term (current) use of oral hypoglycemic drugs; Z71.3 Dietary counseling and surveillance; R80.9 Proteinuria, unspecified
CPT/HCPCS: 36415; 82043; 82565; 82570; 83036; 84520; 97802

== ENCOUNTER → 2021-10-09 10:02 | Outpatient (CLI) | payer MEDICARE, OTHER, SELFPAY ==
[2019-03-19 12:43] VITALS: BMI 35.4
--- NOTE | 2021-10-09 11:13 | DIAB.MNTFU ---
Follow-up Diabetes Medical Nutrition Therapy Assessment Name: Grant Lowery (Julio César) Date: 10/09/21 Time: 7554-3591a Dx: Type II Diabetes Julio César presents for follow-up regarding T2DM. States he has cut out canned soup and gatorade, which is a great improvement for Na intake. Reports improved BP as well. States he has not maintained a lower carb diet. States pasta and potato portions are likely >1c. Continues on glargine and aspart. Interested in SGLT2i as rec by his returned materials inspector. Has not yet called insurance for coverage. Endorses often skipping lunch and lunch ac insulin dose, which results in hyperglycemia prior to dinner. States this happens due to not being home for lunch and busy with work. Endorses cont 4-8 oz ETOH per day. Uses mostly for relaxation with at night. Verbalizes awareness of impact on heart and overall health. Has discussed with returned materials inspector. Improved HgA1c from 8.8% to 7.6%. Anthropometrics: Ht: 6' Wt: 258# reported Physical Activity: Reports hip injury from falling near shower. Has done this in the past, and reports that he is already feeling much better. This has kept him from cardio rehab this week, but he plans to return next week. Has been attending rehab 3x per week and pool gym 2x per week. No walking as of yet. Self-Monitoring Blood Glucose: Endorses 200-300 mg/dL fasting and 102-200 mg/dL later in the day. Diabetes Medications: Metformin 1275mg BID Glargine 35u BID Aspart correction (usually 10-20u ac-- 40-60u per day) Pertinent Labs: HgA1c: 6.9% 04/2020 8.3% 10/2020 7.8% 02/2021 8.8% 04/2021 7.6% 07/2021 Past Medical History: (Last Reviewed 09/24/21 @ 18:08 by Azam Duggan MD) Alcohol dependence (~2018) Atrial fibrillation Blindness of left eye Related to retinal detachment Cholecystitis with cholelithiasis Conjunctivitis, left eye Coronary artery disease Coronary artery disease chronic will monitor Diabetes Gastric ulcer Gout Gout, chronic not currently active Hyperlipidemia Hyperlipidemia, Hypertension Hyperthyroidism 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 Myocardial infarction Nail avulsion Obesity (BMI 30-39.9) Open fracture of distal phalanx of thumb Prostate cancer Puckering of macula, bilateral Restless legs syndrome (RLS) Improved on BiPAP SBO (small bowel obstruction) Patient is status post repair small bowel obstruction with lysis of adhesion recovering nicely Sleep apnea Obstructive Vision disorder 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 Provided appropriate educational handouts. Discussed the following topics: Blood sugar review and trends. Impact of food and medication on results. Keeping carbs to about 1 cup at meals Heart health nutrition: sodium changes and impact on heart health Medication plan Physical activity plan and progress Created SMART goals for patient self-care and success. Goals: Gym pool 2x per week unless contraindicated- met Walk park 2x per week unless contraindicated- not met Check soup labels at grocery store for lower Na options- d/c-- no soup Consider glargine titration at this time- met Measure carbs at meal time- new Call insurance about SGLT2i coverage- new Walk on days that you do not take lunch insulin dose- new Call PCP about med considerations, especially if BG cont >200mg/dL- new Follow-up: JACQUELINE WIGGINS follow-up in 4 weeks Julio César has made some changes regarding physical activity and nutrition (still in progress). Seems he is still experiencing significant hyperglycemia in the morning. Given his cardiac hx, his returned materials inspector would like for him to try an SGLT2i again per Julio César and provider notes. Julio César will discuss further with PCP plan. FELICIANO agrees with this plan if med is affordable for him. Mayra Mcintyre RDN, [facility] Certified Diabetes Care and Clerical Adjuster P: [phone] Thank you for this referral
== END ==
PROVIDERS: PCP Student in an Organized Health Care Education/Training Program; Referring Provider Student in an Organized Health Care Education/Training Program; Visit Provider Student in an Organized Health Care Education/Training Program
DX: E11.9 Type 2 diabetes mellitus without complications (principal); Z71.3 Dietary counseling and surveillance; Z79.84 Long term (current) use of oral hypoglycemic drugs; Z79.4 Long term (current) use of insulin
CPT/HCPCS: 97803

== ENCOUNTER → 2021-11-14 09:31 | Outpatient (CLI) | payer MEDICARE, OTHER, SELFPAY ==
[2019-03-19 12:43] VITALS: BMI 35.4
--- NOTE | 2021-11-21 13:32 | DIAB.FU ---
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 States he has not put in place any of the goals discussed last visit. States he plans to try to delegate some work responsibilities. Also plans to schedule with PCP in the next couple weeks. Had HgA1c completed today. No results in session, but after appt HgA1c down to 6.9%, great improvement! Has increased Lantus to 40u BID from 35u. Endorses BP 130-140 over 50-60. States he does not sleep well. Cont high ETOH intake. Not consistent with lunch time insulin, same as last visit. Physical Activity: Attending rehab 3x per week and not going to the pool gym 2x per week anymore due to gym kraig not going on those days. No walking as of yet at the park on work days still. Seems to want to do this, but difficulty making time for it. States cardiology wants him doing something active everyday. Self-Monitoring Blood Glucose: Reports improvement of FBG with last week numbers of 142 and 162 mg/dL. No BG over 170 mg/dL over the weekend. Great improvement from 200-300mg/dL. No log book or meter here for review. Diabetes Medications: Metformin 1275mg BID Glargine 40u BID Aspart correction (usually 10-20u ac-- 40-60u per day) Pertinent Labs: HgA1c: 6.9% 04/2020 8.3% 10/2020 7.8% 02/2021 8.8% 04/2021 7.6% 07/2021 6.9% 11/14/21 Past Medical History: (Last Reviewed 09/24/21 @ 18:08 by Azam Duggan MD) Alcohol dependence (~2018) Atrial fibrillation Blindness of left eye Related to retinal detachment Cholecystitis with cholelithiasis Conjunctivitis, left eye Coronary artery disease Coronary artery disease chronic will monitor Diabetes Gastric ulcer Gout Gout, chronic not currently active Hyperlipidemia Hyperlipidemia, Hypertension Hyperthyroidism Insomnia long-term (current) use of insulin Myocardial infarction Nail avulsion Obesity (BMI 30-39.9) Open fracture of distal phalanx of thumb Prostate cancer Puckering of macula, bilateral Restless legs syndrome (RLS) Improved on BiPAP SBO (small bowel obstruction) Patient is status post repair small bowel obstruction with lysis of adhesion recovering nicely Sleep apnea Obstructive Vision disorder 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 Provided appropriate educational handouts. Discussed the following topics: Recent blood sugar results and trends Medication management Making activity a priority. Ways to increase likelihood of activity while at work. Prevention of complications Sleep and BG Created SMART goals for patient self-care and success. Goals: Measure carbs at meal time- in progress Call insurance about SGLT2i coverage- in progress Walk on days that you do not take lunch insulin dose- not met Call PCP about med considerations, especially if BG cont >200mg/dL- d/c improved Talk with PCP about sleep- new Ask work operating room scheduler to block off time for a walk- new Follow-up: JACQUELINE WIGGINS follow-up in 3-4 months. Julio César would like to follow-up in a few months for a check-in. BG are much better and great improvement to HgA1c. Encouraged him to try to stay active and discuss SGLT2i with provider since cardiology feels this would be a good plan and will likely dec insulin needs. He agreed. Mayra Mcintyre RDN, [facility] Certified Diabetes Care and Hardware Supplies Sales Representative P: [phone] Thank you for this referral
== END ==
PROVIDERS: PCP Student in an Organized Health Care Education/Training Program; Referring Provider Student in an Organized Health Care Education/Training Program; Visit Provider Student in an Organized Health Care Education/Training Program
DX: E11.9 Type 2 diabetes mellitus without complications (principal); Z71.3 Dietary counseling and surveillance; Z79.4 Long term (current) use of insulin; Z79.84 Long term (current) use of oral hypoglycemic drugs
CPT/HCPCS: G0108

== ENCOUNTER → 2021-11-14 09:35 | Outpatient (CLI) | payer MEDICARE, OTHER, SELFPAY ==
[2019-03-19 12:43] VITALS: BMI 35.4
[2021-11-14 10:44] LABS: Hemoglobin A1C% w Est Avg Glu 6.9 % (4.0-6.0)
[2021-11-14 10:49] LABS: BUN Creatinine Ratio 22.3 (6-22); Blood Urea Nitrogen 21 mg/dL (9-20); Estimated Glomerular Filt Rate > 60 mL/min (>60)
== END ==
PROVIDERS: PCP Student in an Organized Health Care Education/Training Program; Referring Provider Student in an Organized Health Care Education/Training Program; Visit Provider Student in an Organized Health Care Education/Training Program
DX: E11.3291 Type 2 diabetes mellitus with mild nonproliferative diabetic retinopathy without macular edema, right eye (principal); Z79.4 Long term (current) use of insulin; R80.9 Proteinuria, unspecified
CPT/HCPCS: 36415; 82565; 83036; 84520

== ENCOUNTER 2021-12-18 08:30 | Outpatient (RCR) | payer MEDICARE, OTHER, SELFPAY ==
[2019-03-19 12:43] VITALS: BMI 35.4
== END 2021-12-18 12:30 ==
LOC: CAR 08:30
PROVIDERS: PCP Student in an Organized Health Care Education/Training Program; Referring Provider Internal Medicine Cardiovascular Disease; Visit Provider Internal Medicine Cardiovascular Disease
DX: I21.3 ST elevation (STEMI) myocardial infarction of unspecified site (principal)
CPT/HCPCS: 93798

== ENCOUNTER 2022-03-09 12:09 | Emergency (ER) | payer MEDICARE, OTHER, SELFPAY ==
[2019-03-19 12:43] VITALS: BMI 35.4
[2022-03-09 12:28] VITALS: BP 187/77; PULSE 96; RESP 18; TEMP 36.4; O2SAT 98; BMI 36.6
--- NOTE | 2022-03-09 13:59 | ED_ITS ---
HPI - Recheck/Abnormal Lab/Rx <Luna Moncada PA-C - Last Filed: 03/09/22 15:11> General Chief Complaint: Recheck/Abnormal Lab/Rx Stated Complaint: post op need dressing changed & look @ site Time Seen by Provider: 03/09/22 13:37 Mode of arrival: Family Vehicle History of Present Illness HPI narrative: Patient is 71 years old male, with PMH significant for coronary artery disease status post 2 stent placement 3 months ago, history of arrhythmia, atrial flutter atrial fibrillation underwent procedure cardiac ablation x2 on March 07, 2022. Following procedure, noted extensive bruising in both groin area. patient and family concerned about appearance of the skin. Patient however has no discomfort in both groin area. He is diabetic, on insulin, however did not describe prior skin infections in that area. He denies any fever, chills, lower abdominal pain, bleeding from the puncture sites Patient takes a multi-drug regimen including clopidogrel, Eliquis for his cardiac diagnosis. Routinely he does not have excessive bleeding, no gum, rectal bleeding that he noted while on eliquis and clopidogrel Related Data Home Medications Medication Instructions Recorded Confirmed cyanocobalamin (vitamin B-12) 500 mcg PO DAILY 10/12/19 08/26/21 1,000 mcg tablet Respironics Dreamstation BIPAP #1 ea 05/04/20 08/26/21 apixaban 5 mg tablet (Eliquis) 5 mg PO BID 08/26/21 08/26/21 clopidogrel 75 mg tablet (Plavix) 75 mg PO DAILY 08/26/21 08/26/21 Previous Rx's Medication Instructions Recorded blood sugar diagnostic (Blood #400 ea 05/31/21 Glucose Test strips) insulin aspart U-100 100 unit/mL 1 sliding scale dose SUBCUT [facility] 05/31/21 (3 mL) subcutaneous pen #15 mL insulin aspart U-100 100 unit/mL See Rx Instructions SUBCUT [facility] 05/31/21 (3 mL) subcutaneous pen Diabetes #15 mL lancets 30 gauge #400 ea 05/31/21 pen needle, diabetic 31 gauge x #400 ea 05/31/2109/09 atorvastatin 40 mg tablet 40 mg PO DAILY #90 tabs 08/27/21 amlodipine 10 mg tablet 10 mg PO DAILY #90 tabs 09/09/21 pantoprazole 40 mg tablet,delayed 40 mg PO DAILY #90 tabs 09/24/21 release lisinopril 20 mg tablet 20 mg PO DAILY #90 tabs 10/07/21 metoprolol succinate 50 mg 50 mg PO BID #180 tabs 10/07/21 tablet,extended release 24 hr insulin glargine 100 unit/mL (3 60 unit (0.6 mL) SUBCUT DAILY #15 12/04/21 mL) subcutaneous pen (Basaglar mL KwikPen U-100 Insulin) metformin 850 mg tablet 850 mg PO TIDWMEAL #270 tabs 01/09/22 colchicine 0.6 mg tablet 0.6 mg PO DAILY #6 tabs 01/16/22 levothyroxine 125 mcg tablet 125 mcg PO DAILY #90 tabs 01/27/22 Allergies Allergy/AdvReac Type Severity Reaction Status Date / Time acetaminophen Allergy Severe ANAPHYLAXIS Verified 03/09/22 12:34 codeine Allergy Severe ANAPHYLAXIS Verified 03/09/22 12:34 silicone Allergy Severe Swelling, Verified 03/09/22 12:34 rash adhesive tape AdvReac Intermediate blisters, Verified 03/09/22 12:34 takes skin off Review of Systems <Luna Moncada PA-C - Last Filed: 03/09/22 15:11> Review of Systems Narrative: Pertinent review of systems is otherwise normal unless stated in HPI Patient History <Luna Moncada PA-C - Last Filed: 03/09/22 15:11> Medical History Alcohol dependence (~2017) Atrial fibrillation Blindness of left eye Cholecystitis with cholelithiasis Conjunctivitis, left eye Coronary artery disease Diabetes Gastric ulcer Gout Hyperlipidemia Hypertension Hyperthyroidism Insomnia halfway (current) use of insulin Myocardial infarction Nail avulsion Obesity (BMI 30-39.9) Open fracture of distal phalanx of thumb Prostate cancer Puckering of macula, bilateral Restless legs syndrome (RLS) SBO (small bowel obstruction) Sleep apnea Vision disorder Surgical History Anesthesia Corneal transplant status H/O umbilical hernia repair History of coronary artery bypass graft x 2 (~2016) History of intestinal surgery History of knee surgery Hx laparoscopic cholecystectomy Hx of heart artery stent Hx of umbilical hernia repair Status post rotator cuff surgery Family History Father Hypertension Heart disease Mother Stroke Cancer Social History marital status: household members: spouse lives independently: Yes caregiver/support person: No occupational status: employed ([employer]) 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 Well- developed patient, in no acute distress. He appears comfortable reclining on hospital bed HEAD: Atraumatic. Normocephalic. EYES: Pupils equal round and reactive. Extraocular motions intact. No scleral icterus. No injection or drainage. ENT: Nose without bleeding, purulent drainage. Throat without erythema, ton sillar hypertrophy or exudate. Airway patent. NECK: Trachea midline. Non tender CARDIOVASCULAR: Regular rate and rhythm- apparently successful following ablation, no murmurs, gallops, or rubs. RESPIRATORY: Clear to auscultation. Breath sounds equal bilaterally. No wheezes, rales, or rhonchi. GASTROINTESTINAL: Abdomen soft, non-tender, nondistended. There is Rt and Lt inguinal hematoma approximately 7-8 cm each, however no active hemorrhage observed on puncture sites EXTREMITIES: there is + 1 pitting edema [place] but no joint tenderness. BACK: Nontender without deformity or crepitance. No flank tenderness. NEURO: AOx3. SKIN: No rash or erythema of visible areas n other then groin bruising Initial Vital Signs Initial Vital Signs: Vital Signs Temperature 97.6 F 03/09/22 12:28 Pulse Rate 96 H 03/09/22 12:28 Respiratory Rate 18 03/09/22 12:28 Blood Pressure 187/77 H 03/09/22 12:28 Pulse Oximetry 98 03/09/22 12:28 Oxygen Delivery Method 03/09/22 12:28 <Clementine Farris MD - Last Filed: 03/09/22 18:46> Initial Vital Signs Initial Vital Signs: Vital Signs Temperature 97.6 F 03/09/22 12:28 Pulse Rate 96 H 03/09/22 12:28 Respiratory Rate 18 03/09/22 12:28 Blood Pressure 187/77 H 03/09/22 12:28 Pulse Oximetry 98 03/09/22 12:28 Oxygen Delivery Method 03/09/22 12:28 Course <Luna Moncada PA-C - Last Filed: 03/09/22 15:11> Orders Ordered: Discontinued Medications Bacitracin (Bacitracin Oint 0.9 Gm Pckt) 1 applic TOP NOW ONE Stop: 03/09/22 14:25 Last Admin: 03/09/22 14:34 Dose: 1 applic Documented By: GAYLE Vital Signs Vital signs: Vital Signs - 8 hr 03/09/22 12:28 03/09/22 14:43 Temperature 97.6 F Pulse Rate 96 H 77 Respiratory Rate 18 18 Blood Pressure 187/77 H 176/66 H Pulse Oximetry 98 97 Oxygen Delivery Method Room Air Room Air <Clementine Farris MD - Last Filed: 03/09/22 18:46> Orders Ordered: Discontinued Medications Bacitracin (Bacitracin Oint 0.9 Gm Pckt) 1 applic TOP NOW ONE Stop: 03/09/22 14:25 Last Admin: 03/09/22 14:34 Dose: 1 applic Documented By: GAYLE Vital Signs Vital signs: Vital Signs - 8 hr 03/09/22 12:28 03/09/22 14:43 Temperature 97.6 F Pulse Rate 96 H 77 Respiratory Rate 18 18 Blood Pressure 187/77 H 176/66 H Pulse Oximetry 98 97 Oxygen Delivery Method Room Air Room Air MDM - Recheck/Abnormal Lab/Rx <Luna Moncada PA-C - Last Filed: 03/09/22 15:11> MDM Narrative Medical decision making narrative: discussed with patient diagosis of hematoma following his cardiac ablation procedure, most likely due to anticoagulation therapy that he is on , as well as heparin use during procedure. Patient's symptoms are stable over duration of stay, he does not require additional therapy , advised on observation and allow some time for healing of hematoma Findings and discharge diagnosis discussed with patient followed by verbalization of understanding Return precautions discussed with patient whom verbalize understanding. Discharge Plan Departure Patient Disposition: Home Clinical Impression: Hematoma complicating a procedure Instructions: DI for Hematoma (Bruise) Activity Restrictions/Additional Instructions: patient is diagnosed with post procedure hematoma, as a result of accessing his major blood vessel and anti coagulation therapy. Apparently he does not have significant discomfort from having hematoma He instructed to observe for any bleedng or enlarged bruising, otherwise continue with his routine medications. Patient is alert and oriented AOx3, and he has a capacity to make his own medical decisions. He has had all his questions answered to his apparent satisfaction and he was instructed to return to the emergency department for any worsening, persistent, or worrisome problems, increased hematoma. The patient was instructed to take medications as directed, continue with his routne anticoagulation therapy . He also was advised to call his claims service representative's office in the morning to schedule an appointment in the next 1-2 days. Prescriptions: No Action cyanocobalamin (vitamin B-12) 1,000 mcg tablet 500 mcg PO DAILY atorvastatin 40 mg tablet 40 mg PO DAILY Qty: 90 3RF amlodipine 10 mg tablet 10 mg PO DAILY Qty: 90 3RF pantoprazole 40 mg tablet,delayed release (DR/EC) 40 mg PO DAILY Qty: 90 1RF lisinopril 20 mg tablet 20 mg PO DAILY Qty: 90 3RF metoprolol succinate 50 mg tablet extended release 24 hr 50 mg PO BID Qty: 180 3RF insulin glargine [Basaglar KwikPen U-100 Insulin] 100 unit/mL (3 mL) insulin pen 60 unit SUBCUT DAILY Qty: 15 0RF metformin 850 mg tablet 850 mg PO TIDWMEAL Qty: 270 1RF colchicine 0.6 mg tablet 0.6 mg PO DAILY Qty: 6 11RF Rx Instructions: 2 tabs with first sign of flare, 1 tab one hour later. No more than 3 tabs in 24 hrs levothyroxine 125 mcg tablet 125 mcg PO DAILY Qty: 90 1RF (DME) Blood Glucose Test Strip See Rx Instructions .Route Qty: 400 3RF Rx Instructions: Use to check blood sugar 4 times daily (DME) pen needle, diabetic 31 gauge x 5/16 needle See Rx Instructions .Route Qty: 400 3RF Rx Instructions: Use to inject insulin 4 times daily (DME) lancets 30 gauge misc See Rx Instructions .Route Qty: 400 3RF Rx Instructions: Use to check blood sugar 4 times daily insulin aspart U-100 100 unit/mL (3 mL) insulin pen See Rx Instructions SUBCUT QAC MDD 39 units Qty: 15 6RF Rx Instructions: 8 units plus sliding scale dose SUBCUT before meals; insulin aspart U-100 100 unit/mL (3 mL) insulin pen 1 sliding scale dose SUBCUT QAC Qty: 15 0RF Rx Instructions: Blood Glucose (mg/dL)Sliding Scale dose Less than 70 Initiate HYPOglycemia Guidelines 70 ? 149 0 units 150 ? 199 2 units 200 ? 249 4 units 250 ? 299 6 units 300 ? 349 8 units 350 ? 400 10 units Over 400 12 units ? notify provider, and recheck blood sugar in 30 minutes. clopidogrel [Plavix] 75 mg tablet 75 mg PO DAILY Eliquis 5 mg tablet 5 mg PO BID (DME) [employer] Dreamstation BIPAP Qty: 1 Dose Instruction: As directed Label Comments: IPAP:17, EPAP:9, PS:4-4 DME: [place] Rx Instructions: As directed Referrals: Rafat Rosas MD [Primary Care Provider] - Visit Report Forms: Patient Portal/API <Clementine Farris MD - Last Filed: 03/09/22 18:46> Cosign ED Attending Cosignature Attestation: I was immediately available in the department for consultation throughout this patient's visit. I agree with documentation as above. Clementine Farris MD
[2022-03-09] MEDS: BACITRACIN OINT 0.9 GM PCKT 1 APPLIC TOP (14:34)
[2022-03-09 14:43] VITALS: BP 176/66; PULSE 77; RESP 18; O2SAT 97
--- NOTE | 2022-03-09 15:11 | PC.NURSE ---
Dressings removed x 2 in pt's groin area, post op cardiac ablation pressure bandages. Bacitracin applied and simple bandage placed in both areas. Pt tolerated procedure well.
== END 2022-03-09 15:14 | disposition home or self-care (01) ==
PROVIDERS: Emergency Provider Physician Assistant Medical; PCP Student in an Organized Health Care Education/Training Program
DX: L76.32 Postprocedural hematoma of skin and subcutaneous tissue following other procedure (principal)
CPT/HCPCS: 99282

== ENCOUNTER → 2022-03-10 11:12 | Outpatient (CLI) | payer MEDICARE, OTHER, SELFPAY ==
[2019-03-19 12:43] VITALS: BMI 35.4
[2022-03-10 13:17] LABS: BUN Creatinine Ratio 17.4 (6-22); Blood Urea Nitrogen 16 mg/dL (9-20); Calcium 8.5 mg/dL (8.4-10.2); Carbon Dioxide 26 mmol/L (22-32); Chloride 102 mmol/L (98-107); Estimated Glomerular Filt Rate > 60 mL/min (>60); Glucose 133 mg/dL (80-110); HEMOLYSIS < 15 (0-50); Sodium 137 mmol/L (137-145)
== END ==
PROVIDERS: PCP Student in an Organized Health Care Education/Training Program; Referring Provider Student in an Organized Health Care Education/Training Program; Visit Provider Student in an Organized Health Care Education/Training Program
DX: E11.3291 Type 2 diabetes mellitus with mild nonproliferative diabetic retinopathy without macular edema, right eye (principal); R80.9 Proteinuria, unspecified; Z79.4 Long term (current) use of insulin
CPT/HCPCS: 36415; 80048; 83036

== ENCOUNTER → 2022-03-17 12:06 | Outpatient (CLI) | payer MEDICARE, OTHER, SELFPAY ==
[2019-03-19 12:43] VITALS: BMI 35.4
[2022-03-17 16:53] LABS: Creatinine Urine Random 54.2 mg/dL
[2022-03-17 16:55] LABS: Microalbumi Creatinin Ratio Ur 162.3 ug/mg CR (<30); Microalbumin Urine Random 8.8 mg/dL (0-1.6)
== END ==
PROVIDERS: PCP Student in an Organized Health Care Education/Training Program; Referring Provider Student in an Organized Health Care Education/Training Program; Visit Provider Student in an Organized Health Care Education/Training Program
DX: E11.3291 Type 2 diabetes mellitus with mild nonproliferative diabetic retinopathy without macular edema, right eye (principal); R80.9 Proteinuria, unspecified; Z79.4 Long term (current) use of insulin
CPT/HCPCS: 82043; 82570

== ENCOUNTER → 2022-07-02 09:28 | Outpatient (CLI) | payer MEDICARE, OTHER, SELFPAY ==
[2019-03-19 12:43] VITALS: BMI 35.4
[2022-07-02 10:37] LABS: BUN Creatinine Ratio 25.3 (6-22); Blood Urea Nitrogen 22 mg/dL (9-20); Calcium 8.7 mg/dL (8.4-10.2); Carbon Dioxide 31 mmol/L (22-32); Chloride 100 mmol/L (98-107); Estimated Glomerular Filt Rate > 60 mL/min (>60); Glucose 107 mg/dL (80-110); HEMOLYSIS < 15 (0-50); Potassium 4.3 mmol/L (3.4-5.1); Sodium 137 mmol/L (137-145)
[2022-07-04 08:40] LABS: Fructosamine 264 umol/L (0-285)
== END ==
PROVIDERS: PCP Student in an Organized Health Care Education/Training Program; Referring Provider Student in an Organized Health Care Education/Training Program; Visit Provider Student in an Organized Health Care Education/Training Program
DX: E11.3291 Type 2 diabetes mellitus with mild nonproliferative diabetic retinopathy without macular edema, right eye (principal); I10 Essential (primary) hypertension
CPT/HCPCS: 36415; 80048; 82985

== ENCOUNTER → 2022-08-18 10:24 | Outpatient (CLI) | payer MEDICARE, OTHER, SELFPAY ==
[2019-03-19 12:43] VITALS: BMI 35.4
[2022-08-18 11:34] LABS: BUN Creatinine Ratio 26.4 (6-22); Blood Urea Nitrogen 23 mg/dL (9-20); Cholesterol 124 mg/dL (140-199); Estimated Glomerular Filt Rate > 60 mL/min (>60); HDL Cholesterol 37 mg/dL (40-60); LDL Cholesterol Calculated 64 mg/dL (<100); Triglycerides 116 mg/dL (35-150)
[2022-08-18 16:50] LABS: Creatinine Urine Random 77.7 mg/dL
[2022-08-18 16:53] LABS: Microalbumi Creatinin Ratio Ur 93.9 ug/mg CR (<30); Microalbumin Urine Random 7.3 mg/dL (0-1.6)
[2022-08-19 03:09] LABS: x Labcorp Estim. Avg Glu (eAG) 169 mg/dL (.); x Labcorp Hemoglobin A1c 7.5 % (4.8-5.6)
== END ==
PROVIDERS: PCP Student in an Organized Health Care Education/Training Program; Referring Provider Student in an Organized Health Care Education/Training Program; Visit Provider Student in an Organized Health Care Education/Training Program
DX: E78.5 Hyperlipidemia, unspecified; E11.69 Type 2 diabetes mellitus with other specified complication; I10 Essential (primary) hypertension; R80.9 Proteinuria, unspecified; Z79.4 Long term (current) use of insulin; E11.3291 Type 2 diabetes mellitus with mild nonproliferative diabetic retinopathy without macular edema, right eye
CPT/HCPCS: 36415; 80061; 82043; 82565; 82570; 83036; 84520

== ENCOUNTER → 2022-09-25 16:55 | Outpatient (CLI) | payer MEDICARE, OTHER, SELFPAY ==
[2019-03-19 12:43] VITALS: BMI 35.4
[2022-09-25 17:50] LABS: BUN Creatinine Ratio 20.7 (6-22); Blood Urea Nitrogen 25 mg/dL (9-20); Calcium 9.4 mg/dL (8.4-10.2); Carbon Dioxide 27 mmol/L (22-32); Chloride 99 mmol/L (98-107); Estimated Glomerular Filt Rate > 60 mL/min (>60); Glucose 199 mg/dL (80-110); HEMOLYSIS 25 (0-50); Sodium 136 mmol/L (137-145)
[2022-09-26 04:38] LABS: Labcorp Hemoglobin (Hb) A1c 7.1 % (4.8-5.6)
== END ==
PROVIDERS: PCP Student in an Organized Health Care Education/Training Program; Referring Provider Student in an Organized Health Care Education/Training Program; Visit Provider Student in an Organized Health Care Education/Training Program
DX: E11.3291 Type 2 diabetes mellitus with mild nonproliferative diabetic retinopathy without macular edema, right eye (principal); Z79.4 Long term (current) use of insulin; R80.9 Proteinuria, unspecified
CPT/HCPCS: 36415; 80048; 83036

== ENCOUNTER → 2022-12-22 10:49 | Outpatient (CLI) | payer MEDICARE, OTHER, SELFPAY ==
[2019-03-19 12:43] VITALS: BMI 35.4
== END ==
PROVIDERS: PCP Student in an Organized Health Care Education/Training Program; Visit Provider Physician Assistant
DX: N39.0 Urinary tract infection, site not specified (principal)
CPT/HCPCS: 87077; 87086; 87186

== ENCOUNTER → 2023-03-13 08:51 | Outpatient (CLI) | payer MEDICARE, OTHER, SELFPAY ==
[2019-03-19 12:43] VITALS: BMI 35.4
[2023-03-13 11:01] LABS: Iron 94 ug/dL (49-181)
[2023-03-13 11:10] LABS: Percent Iron Saturation 29 % (20-50); Total Iron Binding Capacity 328 ug/dL (261-462)
[2023-03-13 11:26] LABS: Ferritin 14 ng/mL (18-464)
== END ==
PROVIDERS: PCP Internal Medicine; Referring Provider Internal Medicine Sleep Medicine; Visit Provider Internal Medicine Sleep Medicine
DX: G47.33 Obstructive sleep apnea (adult) (pediatric) (principal); E83.10 Disorder of iron metabolism, unspecified; G25.81 Restless legs syndrome
CPT/HCPCS: 36415; 82728; 83540; 83550

== ENCOUNTER 2023-03-13 19:36 | Emergency (ER) | payer MEDICARE, OTHER, SELFPAY ==
[2019-03-19 12:43] VITALS: BMI 35.4
[2023-03-13] VITALS (34 sets, daily range): BP systolic 144–244; BP diastolic 86–133; PULSE 59–102; RESP 14–29; TEMP 36.3; O2SAT 91–100
--- NOTE | 2023-03-13 19:41 | DI.RAD.S_ITS ---
PROCEDURE: XR CHEST 1V INDICATIONS: chest pain TECHNIQUE: One view of the chest was acquired. COMPARISON: [facility], CR, XR CHEST 1 VIEW, 08/07/2022, 20:02. [facility], CR, XR CHEST 1V, 06/15/2021, 18:31. FINDINGS: Surgical changes and devices: Sternal wires. Lungs and pleura: Minimal hazy appearance overlying the costophrenic angles, left greater than right. Mediastinum: Mediastinal contours appear normal. Heart size is enlarged. Bones and chest wall: No suspicious bony lesions. Overlying soft tissues appear unremarkable. IMPRESSION: Minimal costophrenic angle hazy appearance suggestive of minimal effusions. Dictated by: Lucy Delgado M.D. on 03/13/2023 at 19:58 Approved by: Lucy Delgado M.D. on 03/13/2023 at 19:59
--- NOTE | 2023-03-13 19:53 | ED.CHESTPAIN ---
HPI - Chest Pain General Chief Complaint: Chest Pain Stated Complaint: Chest Pain Time Seen by Provider: 03/13/23 19:46 History of Present Illness HPI narrative: Patient with extensive previous coronary disease with his last stent placed within the past year comes to the ED today with sudden onset of chest pain in the lower sternum area sharp and very painful. Without relief after nitroglycerin. Nitroglycerin provided some mild relief but still pain is present. It does not cause diaphoresis or nausea or dyspnea. No trauma related. He is not had a recent illness. Does take Eliquis and an antiplatelet agent. He does take cholesterol medication. He does not smoke cigarettes. He does not typically get angina. He is concerned that this pain may represent angina or new coronary ischemia. Related Data Home Medications Medication Instructions Recorded Confirmed cyanocobalamin (vitamin B-12) 500 mcg PO DAILY 10/12/19 10/21/22 1,000 mcg tablet [email or web address] Dreamstation BIPAP #1 ea 05/04/20 10/21/22 apixaban 5 mg tablet (Eliquis) 5 mg PO BID 08/26/21 10/21/22 clopidogrel 75 mg tablet (Plavix) 75 mg PO DAILY 08/26/21 10/21/22 Previous Rx's Medication Instructions Recorded blood sugar diagnostic (Blood #400 ea 05/31/21 Glucose Test strips) lancets 30 gauge #400 ea 05/31/21 pen needle, diabetic 31 gauge x #400 ea 05/31/2109/09 lisinopril 20 mg tablet 20 mg PO BID #180 tabs 03/17/22 insulin aspart U-100 100 unit/mL 1 sliding scale dose SUBCUT QAC 03/24/22 (3 mL) subcutaneous pen Diabetes #15 mL colchicine 0.6 mg tablet 0.6 mg PO DAILY #6 tabs 06/04/22 blood-glucose sensor (Dexcom G6 #3 ea 06/05/22 Sensor device) blood-glucose transmitter (Dexcom #1 ea 06/05/22 G6 Transmitter device) insulin aspart U-100 100 unit/mL 12 unit (0.12 mL) SUBCUT QAC #60 mL 06/24/22 (3 mL) subcutaneous pen insulin glargine 100 unit/mL (3 45 unit (0.45 mL) SUBCUT QPM #45 mL 07/04/22 mL) subcutaneous pen (Basaglar KwikPen U-100 Insulin) metoprolol succinate 50 mg 50 mg PO BID #180 tabs 07/09/22 tablet,extended release 24 hr amlodipine 10 mg tablet 10 mg PO DAILY #90 tabs 08/18/22 atorvastatin 40 mg tablet 40 mg PO DAILY #90 tabs 09/02/22 pantoprazole 40 mg tablet,delayed 40 mg PO DAILY #90 tabs 09/24/22 release levothyroxine 125 mcg tablet See Rx Instructions .Route 10/30/22 .COMPLEX #90 tabs metformin 850 mg tablet 850 mg PO TIDWMEAL #270 tabs 12/15/22 doxycycline hyclate 100 mg capsule 100 mg PO BID #14 caps 12/24/22 dapagliflozin propanediol 10 mg 10 mg PO DAILY #90 tabs 02/09/23 tablet ([facility]) Allergies Allergy/AdvReac Type Severity Reaction Status Date / Time acetaminophen Allergy Severe ANAPHYLAXIS Verified 10/21/22 14:30 codeine Allergy Severe ANAPHYLAXIS Verified 10/21/22 14:30 silicone Allergy Severe Swelling, Verified 10/21/22 14:30 rash adhesive tape AdvReac Intermediate blisters, Verified 10/21/22 14:30 takes skin off Patient History Medical History Alcohol dependence (~2017) Anemia Atrial fibrillation Blindness of left eye Cholecystitis with cholelithiasis Coronary artery disease Essential hypertension Gastric ulcer Gout Hyperlipidemia associated with type 2 diabetes mellitus Hyperthyroidism 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) Insomnia 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 Myocardial infarction Obesity (BMI 30-39.9) Obstructive sleep apnea of adult Open fracture of distal phalanx of thumb Prostate cancer Puckering of macula, bilateral Restless legs syndrome (RLS) SBO (small bowel obstruction) Sleep apnea Thrombocytopenia Type 2 diabetes mellitus with mild nonproliferative diabetic retinopathy without macular edema, right eye Surgical History Anesthesia Corneal transplant status H/O umbilical hernia repair History of coronary artery bypass graft x 2 (~2015) History of intestinal surgery History of knee surgery Hx laparoscopic cholecystectomy Hx of heart artery stent Hx of umbilical hernia repair S/P ablation of atrial fibrillation Status post rotator cuff surgery Family History Father Hypertension Heart disease Mother Stroke Cancer Social History marital status: household members: spouse lives independently: Yes caregiver/support person: No 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 Markedly hypertensive. HEAD: Atraumatic. Normocephalic. EYES: Sclera are clear without icterus. Extraocular movements are full. ENT: No rhinorrhea. Oropharynx is moist. Mouth exam is benign. NECK: Supple. Full range of motion. CARDIOVASCULAR: Normal rate and rhythm without murmur gallop or rub. Healed median sternotomy scar RESPIRATORY: Clear to auscultation. Breath sounds equal bilaterally. No wheezes, rales, or rhonchi. GASTROINTESTINAL: Abdomen soft, non-tender, nondistended. EXTREMITIES: No edema, full range of motion. No obvious trauma. BACK: Normal inspection, no CVA tenderness. NEURO: Nonfocal examination, normal speech, normal gait. SKIN: No rash or erythema of visible areas PSYCH: Normally oriented. Normal range of affect. Appropriate behavior Initial Vital Signs Initial Vital Signs: Vital Signs Temperature 97.4 F L 03/13/23 19:48 Pulse Rate 62 03/13/23 19:48 Respiratory Rate 20 03/13/23 19:48 Blood Pressure 240/107 H 03/13/23 19:48 Pulse Oximetry 99 03/13/23 19:48 Oxygen Delivery Method Room Air 03/13/23 19:48 Course Course Course Narrative: 2133 patient is back from CT. His blood pressure is down a little bit but still over 200 systolic. Says his midepigastric pain is somewhat better than it was but still present. Orders Ordered: ED Orders 03/13/23 19:41 XR chest 1V Stat 03/13/23 19:56 Complete Blood Count AUTO DIFF Stat Comprehensive Metabolic Panel Stat Lipase Stat Magnesium Stat PTT Partial Thromboplastin Calixto Stat Prothrombin Time INR Stat Troponin & CK Cardiac Panel Stat 03/13/23 19:57 EKG-12 Lead Stat 03/13/23 20:51 CT angio chest abdomen pelvis Stat 03/13/23 21:30 Urinalysis and Microscopic Stat 03/13/23 21:54 Trop I [Troponin I] Stat Fentanyl (Fentanyl 100 Mcg/2 Ml Inj) 50 mcg IV Q1H PRN PRN Reason: Pain, Severe (7-10) Last Admin: 03/13/23 21:44 Dose: 50 mcg Documented By: ES Hydralazine HCl (Hydralazine 20 Mg/Ml Vial) 10 mg IV Q30MIN PRN PRN Reason: prn SBP >180 Last Admin: 03/13/23 21:43 Dose: 10 mg Documented By: ES Heparin Sodium/Dextrose (Heparin Drip) 25,000 unit in 500 mls @ 20 mls/hr IV CONT JUANA; Protocol Discontinued Medications Aspirin (Aspirin 81 Mg Chew Tab) 324 mg PO NOW ONE Stop: 03/13/23 19:42 Last Admin: 03/13/23 20:36 Dose: Not Given Documented By: ES Aspirin (Aspirin Ec 325 Mg Tablet) 325 mg PO NOW ONE Stop: 03/13/23 19:50 Last Admin: 03/13/23 20:16 Dose: Not Given Documented By: ES Fentanyl (Fentanyl 100 Mcg/2 Ml Inj) 50 mcg IV NOW ONE Stop: 03/13/23 20:51 Last Admin: 03/13/23 21:00 Dose: 50 mcg Documented By: ES Heparin Sodium (Porcine) (Heparin 5,000 Unit/Ml Vial) 5,000 unit IV NOW ONE Stop: 03/13/23 20:36 Hydralazine HCl (Hydralazine 20 Mg/Ml Vial) 10 mg IV Q6HR PRN PRN Reason: prn SBP >180 Last Admin: 03/13/23 21:00 Dose: 10 mg Documented By: ES Metoprolol Tartrate (Metoprolol Tartrate 5 Mg/5 Ml Inj) 5 mg IV Q5M [facility] Stop: 03/13/23 20:11 Last Admin: 03/13/23 20:41 Dose: 5 mg Documented By: Admin: 03/13/23 20:24 Dose: 5 mg Documented By: Admin: 03/13/23 20:04 Dose: 5 mg Documented By: ES Morphine Sulfate (Morphine 2 Mg/Ml Inj) 1 mg IV Q2HR PRN PRN Reason: Pain, Moderate (4-6) Last Admin: 03/13/23 20:05 Dose: 1 mg Documented By: JAIME Morphine Sulfate (Morphine 2 Mg/Ml Inj) 2 mg IV Q10MIN JUANA Stop: 03/17/23 20:31 Last Admin: 03/13/23 20:41 Dose: 2 mg Documented By: Admin: 03/13/23 20:23 Dose: 2 mg Documented By: JAIME Nitroglycerin (Nitroglycerin Oint 1 Inch/Gm Oint...G.) 1 inch TOP NOW ONE Stop: 03/13/23 19:54 Last Admin: 03/13/23 20:05 Dose: 1 inch Documented By: JAIME Ondansetron HCl (Ondansetron 4 Mg/2 Ml Inj) 4 mg IV NOW ONE Stop: 03/13/23 20:28 Last Admin: 03/13/23 20:28 Dose: 4 mg Documented By: JAIME Vital Signs Vital signs: Vital Signs - 8 hr 03/13/23 19:48 03/13/23 20:05 03/13/23 20:11 Temperature 97.4 F L Pulse Rate 62 81 102 H Respiratory Rate 20 15 Blood Pressure 240/107 H 197/92 H Pulse Oximetry 99 99 Oxygen Delivery Method Room Air 03/13/23 20:15 03/13/23 20:15 03/13/23 20:21 Temperature Pulse Rate 102 H 77 Respiratory Rate 19 22 Blood Pressure 211/104 H Pulse Oximetry 99 99 Oxygen Delivery Method 03/13/23 20:21 03/13/23 20:25 03/13/23 20:25 Temperature Pulse Rate 100 H Respiratory Rate 25 H Blood Pressure 234/108 H 202/100 H Pulse Oximetry 99 Oxygen Delivery Method 03/13/23 20:30 03/13/23 20:31 03/13/23 20:31 Temperature Pulse Rate 64 95 H Respiratory Rate 22 24 Blood Pressure 237/116 H Pulse Oximetry 100 100 Oxygen Delivery Method 03/13/23 20:36 03/13/23 20:36 03/13/23 20:40 Temperature Pulse Rate 59 L Respiratory Rate 21 Blood Pressure 227/103 H 238/114 H Pulse Oximetry 100 Oxygen Delivery Method 03/13/23 20:40 03/13/23 20:46 03/13/23 20:46 Temperature Pulse Rate 78 71 Respiratory Rate 26 H 25 H Blood Pressure 221/104 H Pulse Oximetry 99 99 Oxygen Delivery Method 03/13/23 20:50 03/13/23 20:50 03/13/23 20:55 Temperature Pulse Rate 66 78 Respiratory Rate 29 H 26 H Blood Pressure 219/107 H Pulse Oximetry 99 99 Oxygen Delivery Method 03/13/23 20:55 03/13/23 21:00 03/13/23 21:00 Temperature Pulse Rate 77 77 Respiratory Rate 26 H Blood Pressure 228/126 H 229/128 H Pulse Oximetry 99 Oxygen Delivery Method 03/13/23 21:00 03/13/23 21:05 03/13/23 21:05 Temperature Pulse Rate 77 Respiratory Rate 22 Blood Pressure 229/128 H 244/119 H Pulse Oximetry 99 Oxygen Delivery Method 03/13/23 21:07 03/13/23 21:07 03/13/23 21:26 Temperature Pulse Rate 93 H Respiratory Rate 23 Blood Pressure 205/89 H 230/109 H Pulse Oximetry 98 Oxygen Delivery Method 03/13/23 21:26 03/13/23 21:30 03/13/23 21:31 Temperature Pulse Rate 88 82 95 H Respiratory Rate 21 21 20 Blood Pressure Pulse Oximetry 96 96 97 Oxygen Delivery Method 03/13/23 21:31 03/13/23 21:35 03/13/23 21:35 Temperature Pulse Rate 94 H Respiratory Rate 18 Blood Pressure 207/102 H 203/98 H Pulse Oximetry 97 Oxygen Delivery Method 03/13/23 21:40 03/13/23 21:40 03/13/23 21:43 Temperature Pulse Rate 91 H 80 Respiratory Rate 14 Blood Pressure 204/103 H 204/103 H Pulse Oximetry 91 Oxygen Delivery Method 03/13/23 21:46 03/13/23 21:46 03/13/23 22:00 Temperature Pulse Rate 74 86 Respiratory Rate 20 20 Blood Pressure 223/95 H Pulse Oximetry 96 96 Oxygen Delivery Method 03/13/23 22:01 03/13/23 22:01 03/13/23 22:12 Temperature Pulse Rate 90 96 H Respiratory Rate 20 Blood Pressure 186/88 H 186/88 H Pulse Oximetry 97 Oxygen Delivery Method 03/13/23 22:15 03/13/23 22:15 Temperature Pulse Rate 80 Respiratory Rate 18 Blood Pressure 173/86 H Pulse Oximetry 96 Oxygen Delivery Method MDM - Chest Pain Lab Data 03/13/23 19:56 03/13/23 19:56 Labs: Lab Results 03/13/23 03/13/23 03/13/23 Range/Units 19:56 21:30 21:54 WBC 6.2 (4.5-11.0) X10^3/uL RBC 4.97 (4.5-5.9) X10^6/uL Hgb 15.2 (13.5-17.5) g/dL Hct 45.2 (41-53) % MCV 90.9 (80-100) fL MCH 30.7 (26-34) PG MCHC 33.8 (30-36) % RDW 14.9 H (11.6-14.8) % Plt Count 184 (150-400) X10^3/uL Neut % (Auto) 67.9 (50-75) % Lymph % (Auto) 20.8 L (25-40) % [place] % (Auto) 8.1 (3-14) % Eos % (Auto) 2.0 (2-4) % Baso % (Auto) 1.2 (0-2) % Neut # (Auto) 4200 (3029-0876) /uL Lymph # (Auto) 1300 (4530-9314) /uL [place] # (Auto) 500 (0-900) /uL Eos # (Auto) 100 (0-450) /uL Baso # (Auto) 100 (0-100) /uL PT 19.0 H (10.1-12.7) SECONDS INR 1.6 H (0.9-1.3) APTT 35 (26-36) SECONDS Sodium 138 (137-145) mmol/L Potassium 4.0 (3.4-5.1) mmol/L Chloride 103 (98-107) mmol/L Carbon Dioxide 23 (22-32) mmol/L BUN 18 (9-20) mg/dL Creatinine 0.89 (0.66-1.25) mg/dL Estimated GFR > 60 (>60) mL/min BUN/Creatinine Ratio 20.2 (6-22) Glucose 172 H (80-110) mg/dL Calcium 9.9 (8.4-10.2) mg/dL Magnesium 1.5 L (1.6-2.3) mg/dL Total Bilirubin 1.0 (0.2-1.3) mg/dL AST 34 (17-59) IU/L ALT 24 (<50) IU/L Alkaline Phosphatase 82 (38-126) U/L Total Creatine Kinase 111 (55-170) U/L Troponin I 0.032 0.031 (0.01-0.034) ng/mL Total Protein 7.2 (6.3-8.2) g/dL Albumin 4.4 (3.5-5.0) g/dL Globulin 2.8 (1.7-4.1) g/dL Albumin/Globulin Ratio 1.6 (1.0-2.8) Lipase 37 (23-300) U/L Urine Color Yellow Urine Appearance Clear Urine pH 6.0 (4.5-8.0) Ur Specific [place] 1.020 (1.000-1.035) Urine Protein 1+ H (Negative) Urine Glucose (UA) 3+ H (Negative) g/dL Urine Ketones Negative (NEGATIVE) Urine Occult Blood Negative (Negative) Urine Nitrate Negative (Negative) Urine Bilirubin Negative (NEGATIVE) Urine Urobilinogen 0.2 (0.2) E.U./dL Ur Leukocyte Esterase Negative (NEGATIVE) Urine RBC None seen (0-5/HPF) Urine WBC None seen (0-5/HPF) Ur Squamous Epith Cells 0-1 /hpf (0-5/HPF) Urine Bacteria None seen (None) Granular Casts 0-1/lpf (None) Ur Culture Indicated? Cult not indicated Urine Dip Bedside Urine Glucose 1000 mg/dl Bedside Urine Bilirubin - Negative Bedside Urine Ketone - Negative Urine Specific [place] 1.015 Bedside Urine Occult Blood - Negative Bedside Urine pH 6.0 Bedside Urine Protein +/- 15 Bedside Urine Urobilinogen - Negative Bedside Urine Nitrite - Negative Bedside Urine Leukocytes - Negative Esterase Imaging Data Chest x-ray: Radiologist's Impression: IMPRESSION: Minimal costophrenic angle hazy appearance suggestive of minimal effusions. Dictated by: Lucy Delgado M.D. on 03/13/2023 at 19:58 Approved by: Lucy Delgado M.D. on 03/13/2023 at 19:59 CT scan - chest: Radiologist's Impression: PROCEDURE: CT ANGIO CHEST ABDOMEN PELVIS INDICATIONS: chest pain, back pain, hypo pericardial nausea TECHNIQUE: Precontrast 5 mm thick sections acquired from the lung apices to the iliac crests. After the administration of intravenous contrast, 2.5 mm thick sections again acquired from the lung apices to the iliac crests. Maximum intensity projection (MIP) oblique sagittal and coronal reformats were then acquired. For radiation dose reduction, the following was used: automated exposure control. COMPARISON: [facility], CT, CT ANGIO CHEST ABDOMEN PELVIS, 06/15/2021, 22:15. FINDINGS: Image quality: Excellent. AORTA: No acute aortic syndrome or aortic aneurysm. CHEST: Lungs and pleura: No acute airspace opacities. No pleural effusions or pneumothorax. Central and peripheral airways are patent and normal in caliber. Mediastinum: Heart size is normal. No pericardial effusion. No mediastinal or hilar adenopathy by size criteria. Central pulmonary arteries are normal in size. Esophagus is normal in caliber. No hiatal hernias. Prior CABG. No filling defects within the central, lobular or proximal segmental pulmonary arteries. Left atrial occlusion device. Bones and chest wall: No axillary adenopathy by size criteria. Thyroid gland is unremarkable . No suspicious bony lesions. No vertebral body compression fractures. ABDOMEN: Vasculature: Celiac trunk and mesenteric arteries are patent. Renal arteries are also patent. Solid organs: Liver is normal in size and enhancement. Coarse calcifications within the liver, spleen the and pancreas Gallbladder is absent . No intrahepatic or extrahepatic biliary dilation, accounting for a post cholecystectomy state. Pancreas enhances normally. Spleen is normal in size and enhancement. No adrenal nodules. Both kidneys are normal in size and enhancement, without hydronephrosis. Peritoneum and bowel: No free fluid or air. Bowel loops are normal in caliber and wall thickness. Nodes and vessels: No retroperitoneal or mesenteric adenopathy by size criteria. Inferior vena cava is normal in morphology. Miscellaneous: No ventral hernias. PELVIS: Genitourinary: Bladder wall thickness is normal. Miscellaneous: No inguinal hernias or adenopathy. No ventral hernias. Bones: No suspicious bony lesions. No vertebral body compression fractures. IMPRESSION: No aortic aneurysm or evidence of acute aortic syndrome. No filling defects within pulmonary arteries to suggest a clinically significant pulmonary embolism. Chronic pancreatitis. Dictated by: Harish Ríos M.D. on 03/13/2023 at 21:35 Approved by: Harish Ríos M.D. on 03/13/2023 at 21:47 ECG Data Interpretation: Initial ECG obtained at 7:57 p.m. shows atrial flutter at 4:21 a.m. conduction with no acute ST or T-wave change. Old Q-waves in inferior leads. With worsening chest pain at 8:19 p.m. and new ECG is obtained which shows atrial fibrillation at a rate of [address]-T wave morphology. [facility] Narrative Medical decision making narrative: After initial therapies the patient still has marked hypertension and severe midepigastric pain radiating to the back. He has a sudden onset of the pain description. Analgesics including nitrates and opioids have improved his pain very little if at all. His symptoms are worse now at the ED than before he got here. With severe hypertension and atypical midsternal pain I am concerned about the possibility of aortic dissection and so will do CTA of the chest abdomen pelvis. Will also be more aggressive about lowering his blood pressure and will use hydralazine now as the metoprolol has not been very effective. 2322 Hydralazine is keeping his blood pressure reasonably controlled. Fentanyl is pretty effective for controlling his pain. Repeat troponin is not elevated. I discussed the case with Dr. Lopez from [facility] who agrees to consult if needed. He recommended discontinuing the heparin which we will do now. [address] Hermosillo at approximately 11:45 p.m. who accepts the admission. He knows the patient well. Heparin has been discontinued. Blood pressure is currently about 150 systolic pain is improved. Repeat ECG shows no new ischemic findings. 3rd tropponin pending. ALS transport here shortl;y Critical Care Time Critical Care Time Critical Care Time: Yes Total Critical Care Time: 45 Attestation: Critical care managing malignant hypertension and severe chest pain. Blood pressure managed with IV medications. Reassessment of the patient's condition Discharge Plan Departure Patient Disposition: [facility] Clinical Impression: Chest pain, Severe hypertension, Atrial fibrillation Prescriptions: No Action cyanocobalamin (vitamin B-12) 1,000 mcg tablet 500 mcg PO DAILY insulin aspart U-100 100 unit/mL (3 mL) insulin pen 1 sliding scale dose SUBCUT QAC MDD 30 units Qty: 15 5RF Hold Instructions: Needs labs Rx Instructions: 2 units for every 50mg/dL glucose over 100. colchicine 0.6 mg tablet 0.6 mg PO DAILY Qty: 6 11RF Rx Instructions: 2 tabs with first sign of flare, 1 tab one hour later. No more than 3 tabs in 24 hrs insulin aspart U-100 100 unit/mL (3 mL) insulin pen 12 unit SUBCUT QAC MDD 60 units Qty: 60 1RF Hold Instructions: Needs labs Rx Instructions: Add sliding scale of 2 units for every 50mg/dL glucose over 100. insulin glargine [Basaglar KwikPen U-100 Insulin] 100 unit/mL (3 mL) insulin pen 45 unit SUBCUT QPM Qty: 45 1RF Hold Instructions: Needs labs metoprolol succinate 50 mg tablet extended release 24 hr 50 mg PO BID Qty: 180 3RF amlodipine 10 mg tablet 10 mg PO DAILY Qty: 90 3RF atorvastatin 40 mg tablet 40 mg PO DAILY Qty: 90 3RF pantoprazole 40 mg tablet,delayed release (DR/EC) 40 mg PO DAILY Qty: 90 1RF levothyroxine 125 mcg tablet See Rx Instructions .ROUTE .COMPLEX Qty: 90 0RF Dose Instruction: TAKE 1 TABLET BY MOUTH DAILY Rx Instructions: TAKE 1 TABLET BY MOUTH DAILY metformin 850 mg tablet 850 mg PO TIDWMEAL Qty: 270 1RF Hold Instructions: Needs labs doxycycline hyclate 100 mg capsule 100 mg PO BID Qty: 14 0RF Farxiga 10 mg tablet 10 mg PO DAILY Qty: 90 1RF Hold Instructions: Needs labs lisinopril 20 mg tablet 20 mg PO BID Qty: 180 3RF (DME) Dexcom G6 Sensor Device See Rx Instructions .Route Qty: 3 11RF Rx Instructions: As directed ([facility]) Dexcom G6 Transmitter Device See Rx Instructions .Route Qty: 1 0RF Rx Instructions: As directed ([facility]) Blood Glucose Test Strip See Rx Instructions .Route Qty: 400 3RF Rx Instructions: Use to check blood sugar 4 times daily (DME) pen needle, diabetic 31 gauge x 5/16 needle See Rx Instructions .Route Qty: 400 3RF Rx Instructions: Use to inject insulin 4 times daily (DME) lancets 30 gauge misc See Rx Instructions .Route Qty: 400 3RF Rx Instructions: Use to check blood sugar 4 times daily clopidogrel [Plavix] 75 mg tablet 75 mg PO DAILY Eliquis 5 mg tablet 5 mg PO BID (DME) [email or web address] Dreamstation BIPAP Qty: 1 Dose Instruction: As directed Patient Comments: IPAP:17, EPAP:9, PS:4-4 DME: Anthony Rx Instructions: As directed Referrals: Grant Shepherd MD [Primary Care Provider] -
[2023-03-13] MEDS: METOPROLOL TARTRATE 5 MG/5 ML INJ IV ×3 (20:04→20:41)
[2023-03-13] MEDS: NITROGLYCERIN OINT 1 INCH/GM OINT...G. TOP (20:05)
[2023-03-13] MEDS: MORPHINE 2 MG/ML INJ 1 MG IV (20:05)
[2023-03-13 20:09] LABS: Add Manual Diff / Slide Review NO; Basophils Absolute Auto 100 /uL (0-100); Basophils Percent Auto 1.2 % (0-2); Eosinophils Absolute Auto 100 /uL (0-450); Hematocrit 45.2 % (41-53); Hemoglobin 15.2 g/dL (13.5-17.5); Lymphocytes Absolute Auto 1300 /uL (1100-4500); Lymphocytes Percent Auto 20.8 % (25-40); Mean Corpuscular HGB Conc 33.8 % (30-36); Mean Corpuscular Hemoglobin 30.7 PG (26-34); Mean Corpuscular Volume 90.9 fL (80-100); Monocytes Absolute Auto 500 /uL (0-900); Monocytes Percent Auto 8.1 % (3-14); Neutrophils Absolute Auto 4200 /uL (1500-7000); Neutrophils Percent Auto 67.9 % (50-75); Platelet Count 184 X10^3/uL (150-400); Red Blood Cell Count 4.97 X10^6/uL (4.5-5.9); Red Cell Distribution Width 14.9 % (11.6-14.8); White Blood Cell Count 6.2 X10^3/uL (4.5-11.0)
[2023-03-13 20:13] LABS: INR 1.6 (0.9-1.3)
[2023-03-13 20:15] LABS: PTT Partial Thromboplastin Tim 35 SECONDS (26-36)
[2023-03-13 20:18] LABS: Alanine Aminotransferase 24 IU/L (<50); Albumin 4.4 g/dL (3.5-5.0); Albumin Globulin Ratio 1.6 (1.0-2.8); Alkaline Phosphatase 82 U/L (38-126); Aspartate Aminotransferase 34 IU/L (17-59); BUN Creatinine Ratio 20.2 (6-22); Blood Urea Nitrogen 18 mg/dL (9-20); Calcium 9.9 mg/dL (8.4-10.2); Carbon Dioxide 23 mmol/L (22-32); Chloride 103 mmol/L (98-107); Creatine Kinase 111 U/L (55-170); Estimated Glomerular Filt Rate > 60 mL/min (>60); Globulin 2.8 g/dL (1.7-4.1); Glucose 172 mg/dL (80-110); HEMOLYSIS 19 (0-50); Lipase 37 U/L (23-300); Magnesium 1.5 mg/dL (1.6-2.3); Sodium 138 mmol/L (137-145); Total Protein 7.2 g/dL (6.3-8.2)
[2023-03-13] MEDS: MORPHINE 2 MG/ML INJ IV ×2 (20:23→20:41)
[2023-03-13] MEDS: ONDANSETRON 4 MG/2 ML INJ IV (20:28)
[2023-03-13 20:29] LABS: Troponin I 0.032 ng/mL (0.01-0.034)
--- NOTE | 2023-03-13 20:51 | DI.CT.S_ITS ---
PROCEDURE: CT ANGIO CHEST ABDOMEN PELVIS INDICATIONS: chest pain, back pain, hypo pericardial nausea TECHNIQUE: Precontrast 5 mm thick sections acquired from the lung apices to the iliac crests. After the administration of intravenous contrast, 2.5 mm thick sections again acquired from the lung apices to the iliac crests. Maximum intensity projection (MIP) oblique sagittal and coronal reformats were then acquired. For radiation dose reduction, the following was used: automated exposure control. COMPARISON: [facility], CT, CT ANGIO CHEST ABDOMEN PELVIS, 06/15/2021, 22:15. FINDINGS: Image quality: Excellent. AORTA: No acute aortic syndrome or aortic aneurysm. CHEST: Lungs and pleura: No acute airspace opacities. No pleural effusions or pneumothorax. Central and peripheral airways are patent and normal in caliber. Mediastinum: Heart size is normal. No pericardial effusion. No mediastinal or hilar adenopathy by size criteria. Central pulmonary arteries are normal in size. Esophagus is normal in caliber. No hiatal hernias. Prior CABG. No filling defects within the central, lobular or proximal segmental pulmonary arteries. Left atrial occlusion device. Bones and chest wall: No axillary adenopathy by size criteria. Thyroid gland is unremarkable . No suspicious bony lesions. No vertebral body compression fractures. ABDOMEN: Vasculature: Celiac trunk and mesenteric arteries are patent. Renal arteries are also patent. Solid organs: Liver is normal in size and enhancement. Coarse calcifications within the liver, spleen the and pancreas Gallbladder is absent . No intrahepatic or extrahepatic biliary dilation, accounting for a post cholecystectomy state. Pancreas enhances normally. Spleen is normal in size and enhancement. No adrenal nodules. Both kidneys are normal in size and enhancement, without hydronephrosis. Peritoneum and bowel: No free fluid or air. Bowel loops are normal in caliber and wall thickness. Nodes and vessels: No retroperitoneal or mesenteric adenopathy by size criteria. Inferior vena cava is normal in morphology. Miscellaneous: No ventral hernias. PELVIS: Genitourinary: Bladder wall thickness is normal. Miscellaneous: No inguinal hernias or adenopathy. No ventral hernias. Bones: No suspicious bony lesions. No vertebral body compression fractures. IMPRESSION: No aortic aneurysm or evidence of acute aortic syndrome. No filling defects within pulmonary arteries to suggest a clinically significant pulmonary embolism. Chronic pancreatitis. Dictated by: Harish Ríos M.D. on 03/13/2023 at 21:35 Approved by: Harish Ríos M.D. on 03/13/2023 at 21:47
[2023-03-13] MEDS: fentaNYL 100 MCG/2 ML INJ 50 MCG IV ×3 (21:00→22:37)
[2023-03-13] MEDS: HYDRALAZINE 20 MG/ML VIAL 10 MG IV ×3 (21:00→23:07)
[2023-03-13 21:44] LABS: Appearance Urine UA CLEAR; Bilirubin Urine UA NEGATIVE (NEGATIVE); Color Urine UA YELLOW; Glucose Urine UA 3+ g/dL (Negative); Ketones Urine UA NEGATIVE (NEGATIVE); Leukocyte Esterase Urine UA NEGATIVE (NEGATIVE); Nitrite Urine UA NEGATIVE (Negative); Occult Blood Urine UA NEGATIVE (Negative); Protein Urine UA 1+ (Negative); Urobilinogen Urine UA 0.2 E.U./dL (0.2)
[2023-03-13 22:01] LABS: Bacteria Urine None Seen; Culture Indicated Urine Cult Not Indicated; Granular Casts Urine 0-1/LPF; RBC Urine None Seen (0-5/HPF); Squamous Epithelial Cell Urine 0-1 /HPF (0-5/HPF); WBC Urine None Seen (0-5/HPF)
[2023-03-13 22:24] LABS: Troponin I 0.031 ng/mL (0.01-0.034)
[2023-03-13] MEDS: HEPARIN 5,000 UNIT/ML VIAL 5000 UNIT IV (22:26)
[2023-03-13] MEDS: HEPARIN DRIP 25,000 UNIT/500 ML IV.SOLN 20 UNIT IV (22:27)
--- NOTE | 2023-03-13 22:40 | PC.NURSE ---
Heparin drip was delayed due to concern for possible AAA / dissection. Once CTA was resulted, plans proceeded as ordered.
[2023-03-14] VITALS: PULSE 84; RESP 25; O2SAT 96
[2023-03-14 00:01] VITALS: BP 189/85; PULSE 94; RESP 24; O2SAT 96
[2023-03-14 00:05] LABS: Troponin I 0.029 ng/mL (0.01-0.034)
[2023-03-14 00:30] VITALS: PULSE 97; RESP 25; O2SAT 98
[2023-03-14 00:31] VITALS: BP 165/88; PULSE 98; RESP 19; O2SAT 76
== END 2023-03-14 00:56 | disposition short-term general hospital (02) ==
PROVIDERS: Emergency Provider Family Medicine Addiction Medicine; PCP Internal Medicine
DX: R07.9 Chest pain, unspecified (principal); I10 Essential (primary) hypertension; I48.91 Unspecified atrial fibrillation; G47.33 Obstructive sleep apnea (adult) (pediatric); G25.81 Restless legs syndrome; E83.10 Disorder of iron metabolism, unspecified; Z79.01 Long term (current) use of anticoagulants; Z79.899 Other long term (current) drug therapy
CPT/HCPCS: 36415; 71045; 71275; 74174; 80053; 81001; 81003; 82550; 82728; 83540; 83550; 83690; 83735; 84484; 85025; 85610; 85730; 93005; 93010; 96365; 96375; 96376; 99284; 99291; J0360; J1644; J2270; J2405; J3010; Q9967

== ENCOUNTER → 2023-03-27 08:52 | Outpatient (CLI) | payer MEDICARE, OTHER, SELFPAY ==
[2019-03-19 12:43] VITALS: BMI 35.4
[2023-03-27 10:00] LABS: Hematocrit 38.3 % (41-53); Hemoglobin 12.9 g/dL (13.5-17.5); Mean Corpuscular HGB Conc 33.8 % (30-36); Mean Corpuscular Hemoglobin 30.5 PG (26-34); Mean Corpuscular Volume 90.4 fL (80-100); Platelet Count 286 X10^3/uL (150-400); Red Blood Cell Count 4.23 X10^6/uL (4.5-5.9); Red Cell Distribution Width 14.4 % (11.6-14.8); White Blood Cell Count 5.5 X10^3/uL (4.5-11.0)
[2023-03-27 10:06] LABS: Hemoglobin A1C% w Est Avg Glu 9.2 % (4.0-6.0)
[2023-03-27 10:10] LABS: Alanine Aminotransferase 69 IU/L (<50); Albumin 3.5 g/dL (3.5-5.0); Albumin Globulin Ratio 1.2 (1.0-2.8); Alkaline Phosphatase 139 U/L (38-126); Aspartate Aminotransferase 61 IU/L (17-59); BUN Creatinine Ratio 27.4 (6-22); Bilirubin Total 0.7 mg/dL (0.2-1.3); Blood Urea Nitrogen 23 mg/dL (9-20); Calcium 9.8 mg/dL (8.4-10.2); Carbon Dioxide 24 mmol/L (22-32); Chloride 102 mmol/L (98-107); Cholesterol 151 mg/dL (140-199); Estimated Glomerular Filt Rate > 60 mL/min (>60); Globulin 2.9 g/dL (1.7-4.1); Glucose 204 mg/dL (80-110); HDL Cholesterol 39 mg/dL (40-60); HEMOLYSIS 18 (0-50); LDL Cholesterol Calculated 67 mg/dL (<100); Potassium 4.5 mmol/L (3.4-5.1); Sodium 133 mmol/L (137-145); Total Protein 6.4 g/dL (6.3-8.2); Triglycerides 226 mg/dL (35-150)
[2023-03-27 10:34] LABS: Creatinine Urine Random 59.7 mg/dL
[2023-03-27 10:40] LABS: Prostate Specific Antigen 0.603 ng/mL (0.10-4.00)
[2023-03-27 10:41] LABS: TSH w/ Reflex to FT4 3.78 uIU/mL (0.47-4.68)
[2023-03-27 10:54] LABS: Microalbumin Urine Random < 0.6 mg/dL (0-1.6)
== END ==
PROVIDERS: PCP Internal Medicine; Referring Provider Internal Medicine; Visit Provider Internal Medicine
DX: I48.20 Chronic atrial fibrillation, unspecified (principal); E11.3291 Type 2 diabetes mellitus with mild nonproliferative diabetic retinopathy without macular edema, right eye; E03.9 Hypothyroidism, unspecified; K80.50 Calculus of bile duct without cholangitis or cholecystitis without obstruction; N40.1 Benign prostatic hyperplasia with lower urinary tract symptoms
CPT/HCPCS: 36415; 80053; 80061; 82043; 82570; 83036; 84153; 84443; 85027

== ENCOUNTER → 2023-07-17 10:32 | Outpatient (CLI) | payer MEDICARE, OTHER, SELFPAY ==
[2023-04-29 12:08] VITALS: BMI 35.4
[2023-07-17 11:25] LABS: Hemoglobin A1C% w Est Avg Glu 8.7 % (4.0-6.0)
[2023-07-17 11:32] LABS: Blood Urea Nitrogen 33 mg/dL (9-20); Calcium 9.3 mg/dL (8.4-10.2); Carbon Dioxide 27 mmol/L (22-32); Chloride 106 mmol/L (98-107); Estimated Glomerular Filt Rate > 60 mL/min (>60); Glucose 204 mg/dL (80-110); HEMOLYSIS < 15 (0-50); Potassium 4.3 mmol/L (3.4-5.1); Sodium 137 mmol/L (137-145)
== END ==
PROVIDERS: PCP Internal Medicine; Referring Provider Internal Medicine; Visit Provider Internal Medicine
DX: E11.3291 Type 2 diabetes mellitus with mild nonproliferative diabetic retinopathy without macular edema, right eye (principal)
CPT/HCPCS: 36415; 80048; 83036

== ENCOUNTER → 2023-08-17 15:31 | Outpatient (CLI) | payer MEDICARE, OTHER, SELFPAY ==
[2023-04-29 12:08] VITALS: BMI 35.4
--- NOTE | 2023-08-27 13:46 | DIAB.MNT ---
Addendum entered by Mayra Mcintyre 08/27/23 13:59: RD messaged PCP about changes to Metformin rx. Current TID 850mg results in Julio César skipping one dose per day. May benefit from more traditional BID rx. Original Note: Initial Diabetes Medical Nutrition Therapy Assessment Name: Grant Lowery (Julio César) Date: 08/17/23 Time: 340-435p Dx: Type II Diabetes Julio César presents for DM visit, last RD visit in 2021. Reports freq urination q 2-3 hours. Reports BG 200-300mg/dl. Recent hospitalization at [facility] with elevated BP and HR per report. Recent gallstone without a gallbladder in 2022. Cut out ETOH x 6 months. Tried expensive supplements for Dm but did not work. States he is having issues with insurance covering insulin. Also reports difficulty with diabetes supply company and rx with Dexcom. Was wearing CGM until 6 months ago. Main concerns today reported: A1c, increased gas per report since Feb 2023, CGM troubleshooting rx. February added some meds, including Mg. Reports all water consumption in evening after work. Diet Recall: 9a: egg, neri, toast sourdough x 2, coffee black, water with pills 1p: lunch meat OR soup OR leftovers OR burger from fastfood OR sub sandwich 6p: corn chips handful x 2 7-8p: meat with potatoes and veggies OR steak with 1.5c pasta or 1.5-1c rice and veggies OR protein and veggies 2 oreo cookies just after dinner 72oz water in evening and soda water +/-12oz per day Anthropometrics: Ht: 6' Wt: 258# 06/2023 Physical Activity: No program. Recenly more active with yardwork and gardening. Considering cardiopulmonary gym membership. Reports went on a walk in June 2023, which resulted in hospitalization with elevated bp and HR. Self-Monitoring Blood Glucose: FB-300mg/dl. Wants to restart CGM. Diabetes Medications: 850mg TID Metformin 10mg Farxiga 55u AM Basaglar 18-20u Novolog 2+ x per day Pertinent Labs: HGA1c: 9.2% 03/2023 8.7% 06/2023 Past Medical History: (Last Reviewed 07/23/23 @ 16:07 by Grant Shepherd MD) Acquired hypothyroidism Alcohol use disorder Anemia Anemia, chronic Blindness of left eye Related to retinal detachment Cholecystitis with cholelithiasis Chronic anticoagulation Coronary artery disease Coronary artery disease chronic will monitor Essential hypertension Gastric ulcer GERD without esophagitis Gout Gout, chronic not currently active Hyperlipidemia associated with type 2 diabetes mellitus Hyperthyroidism 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) 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 Myocardial infarction Obesity (BMI 30-39.9) Obstructive sleep apnea Obstructive sleep apnea of adult History of sleep apnea, chronic, continue CPAP Open fracture of distal phalanx of thumb Paroxysmal atrial fibrillation Prostate cancer Puckering of macula, bilateral Restless legs syndrome (RLS) Improved on BiPAP SBO (small bowel obstruction) Patient is status post repair small bowel obstruction with lysis of adhesion recovering nicely Sleep apnea Obstructive Thrombocytopenia Type 2 diabetes mellitus with mild nonproliferative diabetic retinopathy without macular edema, right eye Venous (peripheral) insufficiency Nutrition Rx: Carbohydrates: Meal: 45g Snack: 15-30g Nutrition Diagnosis: - Inconsistent fluid intake r/t forgetting water during the day aeb diet recall - Excessive CHO intake r/t food knowledge deficit aeb diet recall indicating high carb intake around dinner - Physical inactivity r/t fear of complications after hospitalization aeb pt report Intervention: This participant was very receptive. Provided appropriate educational handouts. Discussed the following topics: Completed intake assessment. Discussed barriers to care. CGM troubleshooting rx Spreading out carbohydrates for better blood glucose management Recommended servings for carbohydrates at meals and snacks Role of physical activity and following provider guidelines for safety Hydration strategies Created SMART goals for patient self-care and success. Goals: Check insurance about insulin preferences have water with breakfast and lunch Chat with cardiopulmonary about gym membership Message [employer] for CGM Spread evening CHO out to prevent evening hyperglycemia Follow-up: JACQUELINE WIGGINS follow-up in 3-4 weeks. Mayra Mcintyre RDN, FELICIANO Certified Diabetes Care and Patent Lawyer P: [phone] Thank you for this referral
== END ==
PROVIDERS: PCP Internal Medicine; Referring Provider Internal Medicine
DX: E11.9 Type 2 diabetes mellitus without complications (principal); Z79.84 Long term (current) use of oral hypoglycemic drugs; Z79.4 Long term (current) use of insulin; Z71.3 Dietary counseling and surveillance
CPT/HCPCS: 97802

== ENCOUNTER → 2023-09-10 15:17 | Outpatient (CLI) | payer MEDICARE, OTHER, SELFPAY ==
[2023-04-29 12:08] VITALS: BMI 35.4
--- NOTE | 2023-09-30 10:03 | DIAB.FU ---
Follow-up Diabetes Education Assessment Name: Grant Lowery (Julio César) Date: 09/10/23 Time: 330-430p Dx: Type II Diabetes Julio César presents for Dm follow-up. Reports DME company called regarding CGM but having issues with rx. Seems there is some mix up about his name on the rx vs with Medicare. States this has been a challenge in the past. Cut out potatoes recently. Skipping CHO at dinner about half the time. Still waking with hyperglycemia. Reports some high CHO at night with snacking chips and oreos. Insurance switched mealtime to fiasp pens. Taking 20u BID. Has not started taking Metformin as rx'd yet. Self-Monitoring Blood Glucose: Waking with most FBG 200-275mg/dl. Has been in the low 200s more recently and one FBG of 138mg/dl-- unclear why this lower reading. Diabetes Medications: 1000mg Metformin BID 10mg Farxiga 40u Basaglar BID 20u Fiasp 2+ x per day Pertinent Labs: HGA1c: 9.2% 03/2023 8.7% 06/2023 Past Medical History: (Last Reviewed 09/03/23 @ 05:15 by Grant Shepherd MD) Acquired hypothyroidism Alcohol use disorder Anemia Anemia, chronic Blindness of left eye Related to retinal detachment Cholecystitis with cholelithiasis Chronic anticoagulation Coronary artery disease Coronary artery disease chronic will monitor Essential hypertension Gastric ulcer GERD without esophagitis Gout Gout, chronic not currently active Hyperlipidemia associated with type 2 diabetes mellitus Hyperthyroidism 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) 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 Myocardial infarction Obesity (BMI 30-39.9) Obstructive sleep apnea Obstructive sleep apnea of adult History of sleep apnea, chronic, continue CPAP Open fracture of distal phalanx of thumb Paroxysmal atrial fibrillation Prostate cancer Puckering of macula, bilateral Restless legs syndrome (RLS) Improved on BiPAP SBO (small bowel obstruction) Patient is status post repair small bowel obstruction with lysis of adhesion recovering nicely Sleep apnea Obstructive Thrombocytopenia Type 2 diabetes mellitus with mild nonproliferative diabetic retinopathy without macular edema, right eye Venous (peripheral) insufficiency Intervention: This participant was very receptive. Provided appropriate educational handouts. Discussed the following topics: Recent blood sugar results and trends Medication management Review of general nutrition recommendations and current intake Troubleshooting CGM acquisition with DME HS snacking Created SMART goals for patient self-care and success. Goals: Check insurance about insulin preferences - met have water with breakfast and lunch- in progress Chat with cardiopulmonary about gym membership- met Message RD supplies company for CGM- met Spread evening CHO out to prevent evening hyperglycemia- in progress Wait 3 days and if FBG >180, increase Basaglar- new Avoid corn chips or oreos in evening- new Follow-up: JACQUELINE WIGGINS follow-up in 3-4 weeks Mayra Mcintyre RDN, FELICIANO Certified Diabetes Care and Sign Wirer P: [phone] Thank you for this referral
== END ==
PROVIDERS: PCP Internal Medicine; Referring Provider Internal Medicine
DX: E11.3291 Type 2 diabetes mellitus with mild nonproliferative diabetic retinopathy without macular edema, right eye (principal); Z68.35 Body mass index [BMI] 35.0-35.9, adult; Z71.3 Dietary counseling and surveillance
CPT/HCPCS: G0108

== ENCOUNTER → 2023-10-14 13:54 | Outpatient (CLI) | payer MEDICARE, OTHER, SELFPAY ==
[2023-04-29 12:08] VITALS: BMI 35.4
--- NOTE | 2023-11-05 13:23 | DIAB.FU ---
Follow-up Diabetes Education Assessment Name: Grant Lowery (Julio César) Date: 10/14/23 Time: 210-245p Dx: Type II Diabetes Julio César presents for Dm follow-up. Reports he now is using CGM sensors, Dexcom G7. After barriers regarding his name on license versus EMR versus MCR card, he now has CGM and it is covered by insurance. He is very happy to be using this technology. Has received updated Metformin rx but still using 850mg tabs. Wants to use these until they run out. Self-Monitoring Blood Glucose: Waking with elevated FBG most mornings. Some elevations after meals as well. Plans to titrate insulin per CGm results. States he feels confident in doing this. TIR: 17% very high 20% high 63% in range 0% low Avmg/dl std dev: 55 mg/dl Diabetes Medications: 1000mg Metformin BID (taking 850mg) 10mg Farxiga 45u Basaglar BID 20u Fiasp 2+ x per day Pertinent Labs: HGA1c: 9.2% 03/2023 8.7% 06/2023 Past Medical History: (Last Reviewed 09/03/23 @ 05:15 by Grant Shepherd MD) Acquired hypothyroidism Alcohol use disorder Anemia Anemia, chronic Blindness of left eye Related to retinal detachment Cholecystitis with cholelithiasis Chronic anticoagulation Coronary artery disease Coronary artery disease chronic will monitor Essential hypertension Gastric ulcer GERD without esophagitis Gout Gout, chronic not currently active Hyperlipidemia associated with type 2 diabetes mellitus Hyperthyroidism 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) 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 Myocardial infarction Obesity (BMI 30-39.9) Obstructive sleep apnea Obstructive sleep apnea of adult History of sleep apnea, chronic, continue CPAP Open fracture of distal phalanx of thumb Paroxysmal atrial fibrillation Prostate cancer Puckering of macula, bilateral Restless legs syndrome (RLS) Improved on BiPAP SBO (small bowel obstruction) Patient is status post repair small bowel obstruction with lysis of adhesion recovering nicely Sleep apnea Obstructive Thrombocytopenia Type 2 diabetes mellitus with mild nonproliferative diabetic retinopathy without macular edema, right eye Venous (peripheral) insufficiency Intervention: This participant was very receptive. Provided appropriate educational handouts. Discussed the following topics: Recent blood sugar results and trends Medication management: insulin titration recs Review of general nutrition recommendations and current intake Created SMART goals for patient self-care and success. Goals: Wait 3 days and if FBG >180, increase Basaglar- met Avoid corn chips or oreos in evening- in progress Increase basal insulin by 2u q 2-3 days until FBG <150mg/dl consistently- new Start new metformin rx of 1000mg BID- new Follow-up: JACQUELINE WIGGINS follow-up prn. Julio César would like to call for follow-up prn. Plans to f/u with PCP in Nov. Mayra Mcintyre, JACQUELINE, [facility] Certified Diabetes Care and Art Critic P: [phone] Thank you for this referral
== END ==
PROVIDERS: PCP Internal Medicine; Referring Provider Internal Medicine
DX: E11.9 Type 2 diabetes mellitus without complications (principal); Z71.3 Dietary counseling and surveillance; Z79.4 Long term (current) use of insulin; Z79.84 Long term (current) use of oral hypoglycemic drugs
CPT/HCPCS: G0108

== ENCOUNTER → 2023-12-25 09:54 | Outpatient (CLI) | payer MEDICARE, OTHER, SELFPAY ==
[2023-04-29 12:08] VITALS: BMI 35.4
[2023-12-25 13:24] LABS: Aspartate Aminotransferase 28 IU/L (17-59); BUN Creatinine Ratio 26.7 (6-22); Blood Urea Nitrogen 36 mg/dL (9-20); Calcium 9.2 mg/dL (8.4-10.2); Carbon Dioxide 25 mmol/L (22-32); Chloride 100 mmol/L (98-107); Cholesterol 108 mg/dL (140-199); Estimated Glomerular Filt Rate 55 mL/min (>60); Glucose 119 mg/dL (80-110); HDL Cholesterol 42 mg/dL (40-60); HEMOLYSIS < 15 (0-50); LDL Cholesterol Calculated 39 mg/dL (<100); Potassium 4.7 mmol/L (3.4-5.1); Sodium 132 mmol/L (137-145); Triglycerides 133 mg/dL (35-150)
[2023-12-25 13:34] LABS: Creatinine Urine Random 74.62 mg/dL
[2023-12-25 13:57] LABS: Microalbumin Urine Random < 0.6 mg/dL (0-1.6)
[2023-12-25 16:12] LABS: Hemoglobin A1C% w Est Avg Glu 7.3 % (4.0-6.0)
== END ==
PROVIDERS: PCP Internal Medicine; Referring Provider Internal Medicine; Visit Provider Internal Medicine
DX: E11.3291 Type 2 diabetes mellitus with mild nonproliferative diabetic retinopathy without macular edema, right eye (principal); I48.0 Paroxysmal atrial fibrillation
CPT/HCPCS: 36415; 80048; 80061; 82043; 82570; 83036; 84450

== ENCOUNTER → 2024-06-15 08:42 | Outpatient (CLI) | payer MEDICARE, OTHER, SELFPAY ==
[2023-04-29 12:08] VITALS: BMI 35.4
[2024-06-15 09:44] LABS: BUN Creatinine Ratio 23.7 (6-22); Blood Urea Nitrogen 32 mg/dL (9-20); Calcium 9.6 mg/dL (8.4-10.2); Carbon Dioxide 26 mmol/L (22-32); Chloride 99 mmol/L (98-107); Estimated Glomerular Filt Rate 55 mL/min (>60); Glucose 123 mg/dL (80-110); HEMOLYSIS 17 (0-50); Potassium 5.6 mmol/L (3.4-5.1); Sodium 134 mmol/L (137-145)
[2024-06-15 10:29] LABS: Hemoglobin A1C% w Est Avg Glu 7.2 % (4.0-6.0)
[2024-06-15 10:32] LABS: Vitamin B12 383 pg/mL (239-931)
== END ==
PROVIDERS: PCP Internal Medicine; Referring Provider Internal Medicine; Visit Provider Internal Medicine
DX: E11.42 Type 2 diabetes mellitus with diabetic polyneuropathy (principal); E53.8 Deficiency of other specified B group vitamins
CPT/HCPCS: 36415; 80048; 82607; 83036

== ENCOUNTER → 2024-07-12 14:52 | Outpatient (CLI) | payer MEDICARE, OTHER, SELFPAY ==
[2023-04-29 12:08] VITALS: BMI 35.4
--- NOTE | 2024-08-05 14:51 | DIAB.FU ---
Follow-up Diabetes Education Assessment Name: Grant Lowery (Julio César) Date: 07/12/24 Time: 305-405p Dx: Type II Diabetes Julio César presents for Dm follow-up. States he needs more info on GLP1 action. Also needs more info on insulin pumps. States he wants to wait on Omnipod pump while he is changing insulin dosing with GLP1. Eating BID. Reports lows over the last three week since starting GLP1. Had some GI symptoms when starting GLP1, but they have seemed to subside. Self-Monitoring Blood Glucose: Reduced time >250mg/dl since our last visit in 2023, however slight reduced time in range. Lows were not long enough to register in TIR. TIR: 9% very high 37% high 54% in range 0% low Avmg/dl GMI: 7.7% std dev: 50 mg/dl variance: 27.2% Last Visit TIR: 17% very high 20% high 63% in range 0% low Avmg/dl std dev: 55 mg/dl Diabetes Medications: 1000mg Metformin BID 10mg Farxiga 35-40u Glargine BID 10-15u Aspart 2-3x per day 2.5mg Mounjaro Pertinent Labs: HGA1c: 9.2% 03/2023 8.7% 06/2023 7.2% 05/2024 Past Medical History: (Last Reviewed 09/03/23 @ 05:15 by Grant Shepherd MD) Acquired hypothyroidism Alcohol use disorder Anemia Anemia, chronic Blindness of left eye Related to retinal detachment Cholecystitis with cholelithiasis Chronic anticoagulation Coronary artery disease Coronary artery disease chronic will monitor Essential hypertension Gastric ulcer GERD without esophagitis Gout Gout, chronic not currently active Hyperlipidemia associated with type 2 diabetes mellitus Hyperthyroidism 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) Insomnia 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 Myocardial infarction Obesity (BMI 30-39.9) Obstructive sleep apnea Obstructive sleep apnea of adult History of sleep apnea, chronic, continue CPAP Open fracture of distal phalanx of thumb Paroxysmal atrial fibrillation Prostate cancer Puckering of macula, bilateral Restless legs syndrome (RLS) Improved on BiPAP SBO (small bowel obstruction) Patient is status post repair small bowel obstruction with lysis of adhesion recovering nicely Sleep apnea Obstructive Thrombocytopenia Type 2 diabetes mellitus with mild nonproliferative diabetic retinopathy without macular edema, right eye Venous (peripheral) insufficiency Intervention: This participant was very receptive. Provided appropriate educational handouts. Discussed the following topics: Recent blood sugar results and trends Medication management: insulin dosing with GLP1 GLP1 action, precautions, and benefits SGLT2i action, precautions, benefits insulin pump options and benefits and precautions Low BG tx and s/s Created SMART goals for patient self-care and success. Goals: Fiasp 15-20u at dinner Reduce glargine to 30u BID Increase Mounjaro as rx'd to 5mg after 4 weeks Then reduce glargine by 25-30% = 20-22u BID Also reduce fiasp to 0-10u at meals prn Follow-up: JACQUELINE WIGGINS follow-up in 3-4 weeks Mayra Mcintyre RDN, FELICIANO Certified Diabetes Care and Aging Box Hand P: [phone] Thank you for this referral
== END ==
LOC: DIET 14:53
PROVIDERS: PCP Internal Medicine
DX: E11.3291 Type 2 diabetes mellitus with mild nonproliferative diabetic retinopathy without macular edema, right eye (principal); Z71.3 Dietary counseling and surveillance; Z79.84 Long term (current) use of oral hypoglycemic drugs; Z79.4 Long term (current) use of insulin; Z79.85 Long-term (current) use of injectable non-insulin antidiabetic drugs
CPT/HCPCS: G0108

== ENCOUNTER → 2024-08-10 09:46 | Outpatient (CLI) | payer MEDICARE, OTHER, SELFPAY ==
[2023-04-29 12:08] VITALS: BMI 35.4
--- NOTE | 2024-08-10 09:51 | DIAB.FU ---
Follow-up Diabetes Education Assessment Name: Grant Lowery (Julio César) Date: 08/10/24 Time: -0589z Dx: Type II Diabetes Julio César presents for Dm follow-up. Increased Mounjaro per rx to 5mg. Feeling light nausea most of the time. States this is doable but not ideal. Also, pays $200 per month for Mounjaro, also not ideal; however does seem to be making a difference in his BG. Much improved time in range. 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 Drastically reduced ETOH intake to only 2 days per week x 2-3 servings in a sitting. Craving hard candies lately, 5-6 per day. usually 3 at night for dessert. States he is unsure if this craving is r/t cutting back ETOH. Had sleep study. PMH restless leg syndrome. Reports plans for iron supplementation with Keith to manage this. Lost 10# recently, likely r/t GLP1 and reduced ETOH intake. has not needed to reduce insulin. Self-Monitoring Blood Glucose: Improved time in range. Meeting >70% goal in range. Some excessive time >180mg/dl however much improved time >250mg/dl. TIR: 1% very high 28% high 71% in range 0% low Avmg/dl GMI: 7.3% std dev: 31 mg/dl variance: 18.7% Last Visit TIR: 9% very high 37% high 54% in range 0% low Avmg/dl GMI: 7.7% std dev: 50 mg/dl variance: 27.2% Diabetes Medications: 1000mg Metformin BID 45u Glargine BID 16-17u Aspart 2-3x per day 5mg Mounjaro Pertinent Labs: HGA1c: 9.2% 03/2023 8.7% 06/2023 7.2% 05/2024 Past Medical History: (Last Reviewed 09/03/23 @ 05:15 by Grant Shepherd MD) Acquired hypothyroidism Alcohol use disorder Anemia Anemia, chronic Blindness of left eye Related to retinal detachment Cholecystitis with cholelithiasis Chronic anticoagulation Coronary artery disease Coronary artery disease chronic will monitor Essential hypertension Gastric ulcer GERD without esophagitis Gout Gout, chronic not currently active Hyperlipidemia associated with type 2 diabetes mellitus Hyperthyroidism 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) Insomnia 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 Myocardial infarction Obesity (BMI 30-39.9) Obstructive sleep apnea Obstructive sleep apnea of adult History of sleep apnea, chronic, continue CPAP Open fracture of distal phalanx of thumb Paroxysmal atrial fibrillation Prostate cancer Puckering of macula, bilateral Restless legs syndrome (RLS) Improved on BiPAP SBO (small bowel obstruction) Patient is status post repair small bowel obstruction with lysis of adhesion recovering nicely Sleep apnea Obstructive Thrombocytopenia Type 2 diabetes mellitus with mild nonproliferative diabetic retinopathy without macular edema, right eye Venous (peripheral) insufficiency Intervention: This participant was very receptive. Provided appropriate educational handouts. Discussed the following topics: Recent blood sugar results and trends Medication management: continue current insulin regimen, may want to stay at 5mg given nausea or consider other GLp1 option Impact of d/c of ETOH drastically, including cravings Created SMART goals for patient self-care and success. Goals: Fiasp 15-20u at dinner- met Reduce glargine to 30u BID- d/c Increase Mounjaro as rx'd to 5mg after 4 weeks- met Then reduce glargine by 25-30% = 20-22u BID- d/c Also reduce fiasp to 0-10u at meals prn- d/c Continue current DM med regimen and discuss with PCP- new Limit hard candies as discussed- new Follow-up: JACQUELINE WIGGINS follow-up in 4-6 weeks Mayra Mcintyre RDN, FELICIANO Certified Diabetes Care and Mud Logger P: [phone] Thank you for this referral
== END ==
PROVIDERS: PCP Internal Medicine; Referring Provider Internal Medicine
DX: E11.3291 Type 2 diabetes mellitus with mild nonproliferative diabetic retinopathy without macular edema, right eye (principal); Z71.3 Dietary counseling and surveillance; Z79.84 Long term (current) use of oral hypoglycemic drugs; Z79.4 Long term (current) use of insulin; Z79.85 Long-term (current) use of injectable non-insulin antidiabetic drugs
CPT/HCPCS: G0108

== ENCOUNTER → 2024-09-21 14:55 | Outpatient (CLI) | payer MEDICARE, OTHER, SELFPAY ==
[2023-04-29 12:08] VITALS: BMI 35.4
--- NOTE | 2024-09-21 17:16 | DIAB.MNTFU ---
Follow-up Diabetes Medical Nutrition Therapy Assessment Name: Grant Lowery (Julio César) Date: 09/21/24 Time: 3-330p Dx: Type II Diabetes Julio César presents for Dm follow-up. Reports changes in eating recently due to a trip to a [place] town with only one tavern with food available. Endorses increased fried food. Reports another trip planned, but to [facility] with more food options. Reports recent low after change CGM, but did have symptoms so unlikely a false low. I couldn't move. treated with apple juice and hard candy. States he may have accidentally taken two meal time doses. Endorses some scar tissue on abdomen from injections. Discussed switching to Ozempic with PCP but now has met deductible and wants to continue Mounjaro. Also nausea has subsided. Asked RD to messaged PCP, which has been completed. Also reports he would like to try Omnipod to reduce injection burden. RD messaged PCP for this as well. Anthropometrics: Ht: 6' Wt: 265# reported 08/2024 276# 05/2024 at PCP Self-Monitoring Blood Glucose: Slight improved time in range. Meeting >70% goal in range. Some excessive time >180mg/dl however reduced time >250mg/dl. TIR: 0% very high 29% high 71% in range 0% low Avmg/dl GMI: 7.1% std dev: 39 mg/dl variance: 24.9% Last Visit TIR: 1% very high 28% high 71% in range 0% low Avmg/dl GMI: 7.3% std dev: 31 mg/dl variance: 18.7% Diabetes Medications: 1000mg Metformin BID 45u Glargine BID 16-17u Aspart 2-3x per day 5mg Mounjaro Pertinent Labs: HGA1c: 9.2% 03/2023 8.7% 06/2023 7.2% 05/2024 Past Medical History: (Last Reviewed 09/03/23 @ 05:15 by Grant Shepherd MD) Acquired hypothyroidism Alcohol use disorder Anemia Anemia, chronic Blindness of left eye Related to retinal detachment Cholecystitis with cholelithiasis Chronic anticoagulation Coronary artery disease Coronary artery disease chronic will monitor Essential hypertension Gastric ulcer GERD without esophagitis Gout Gout, chronic not currently active Hyperlipidemia associated with type 2 diabetes mellitus Hyperthyroidism 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) Insomnia [facility] (current) use of insulin Myocardial infarction Obesity (BMI 30-39.9) Obstructive sleep apnea Obstructive sleep apnea of adult History of sleep apnea, chronic, continue CPAP Open fracture of distal phalanx of thumb Paroxysmal atrial fibrillation Prostate cancer Puckering of macula, bilateral Restless legs syndrome (RLS) Improved on BiPAP SBO (small bowel obstruction) Patient is status post repair small bowel obstruction with lysis of adhesion recovering nicely Sleep apnea Obstructive Thrombocytopenia Type 2 diabetes mellitus with mild nonproliferative diabetic retinopathy without macular edema, right eye Venous (peripheral) insufficiency Nutrition Rx: Carbohydrates: Meal: 45g Snack: 15-30g Nutrition Diagnosis: - Excessive CHO intake r/t food options on vacation aeb pt report Intervention: This participant was very receptive. Provided appropriate educational handouts. Discussed the following topics: Recent blood sugar results and trends Medication management: continue current insulin regimen or trial Omnipod Eating out strategies Rotating injection sites Created SMART goals for patient self-care and success. 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 RD messaged PCP per pt request regarding Omnipod and GLP1. Mayra Mcintyre RDN, FELICIANO Certified Diabetes Care and History Instructor P: [phone] Thank you for this referral
== END ==
PROVIDERS: PCP Internal Medicine; Referring Provider Internal Medicine
DX: E11.3291 Type 2 diabetes mellitus with mild nonproliferative diabetic retinopathy without macular edema, right eye (principal); Z71.3 Dietary counseling and surveillance; Z79.84 Long term (current) use of oral hypoglycemic drugs; Z79.4 Long term (current) use of insulin; Z79.85 Long-term (current) use of injectable non-insulin antidiabetic drugs
CPT/HCPCS: 97803

== ENCOUNTER → 2025-03-18 08:55 | Outpatient (CLI) | payer MEDICARE, OTHER, SELFPAY ==
[2023-04-29 12:08] VITALS: BMI 35.4
[2025-03-18 09:45] LABS: Hematocrit 32.6 % (41-53); Hemoglobin 11.5 g/dL (13.5-17.5); Mean Corpuscular HGB Conc 35.2 % (30-36); Mean Corpuscular Hemoglobin 32.4 PG (26-34); Mean Corpuscular Volume 92.1 fL (80-100); Platelet Count 167 X10^3/uL (150-400)
[2025-03-18 10:06] LABS: HEMOLYSIS < 15 (0-50); Iron 88 ug/dL (49-181)
[2025-03-18 10:08] LABS: Blood Urea Nitrogen 38 mg/dL (9-20); Calcium 9.4 mg/dL (8.4-10.2); Carbon Dioxide 25 mmol/L (22-32); Chloride 102 mmol/L (98-107); Estimated Glomerular Filt Rate 56 mL/min (>60); Glucose 146 mg/dL (70-99); HEMOLYSIS < 15 (0-50); Potassium 4.3 mmol/L (3.4-5.1); Sodium 137 mmol/L (137-145)
[2025-03-18 10:20] LABS: Percent Iron Saturation 29 % (20-50); Total Iron Binding Capacity 302 ug/dL (261-462); Transferrin 247 mg/dL (206-381)
[2025-03-18 10:37] LABS: TSH w/ Reflex to FT4 3.60 uIU/mL (0.47-4.68)
[2025-03-18 10:43] LABS: Ferritin 127 ng/mL (18-464)
[2025-03-18 10:59] LABS: Hemoglobin A1C% w Est Avg Glu 6.1 % (4.0-6.0)
== END ==
PROVIDERS: PCP Internal Medicine; Referring Provider Internal Medicine; Visit Provider Internal Medicine
DX: E03.9 Hypothyroidism, unspecified (principal); E11.3291 Type 2 diabetes mellitus with mild nonproliferative diabetic retinopathy without macular edema, right eye; Z79.4 Long term (current) use of insulin; D50.9 Iron deficiency anemia, unspecified
CPT/HCPCS: 36415; 80048; 82728; 83036; 83540; 83550; 84443; 85027